=== PATIENT | male | born 1950 | race Caucasian/White ===

== ENCOUNTER → 2018-01-16 08:19 | Outpatient (CLI) | payer MEDICARE, OTHER, SELFPAY ==
--- NOTE | 2018-01-16 08:21 | US_ITS ---
US gallbladder HISTORY: Cholelithiasis seen on recent abdomen CT ITS.REASON: DIZZINESS, VOMITING ORDERING PHYSICIAN: Clifton Lujan MD PATIENT AGE: 67 years COMPARISON: 12/28/2017 FINDINGS: PANCREAS: Unremarkable. No obvious mass or abnormal fluid collection. No ductal dilatation LIVER: No focal liver lesions demonstrated. Homogeneous echogenicity. No intrahepatic biliary ductal dilatation evident RIGHT KIDNEY: No hydronephrosis. There are 2 stones in the right kidney one in the upper pole at 9 mm and one in the lower pole 7 mm. There is mild cortical scarring and there is a 2 cm cyst along the lower pole anteriorly. GALLBLADDER: There are small stones present within the gallbladder. No gallbladder wall thickening, pericholecystic fluid, or biliary dilatation evident., Bile duct is normal at 3 mm. IMPRESSION: 1. Cholelithiasis. 2. Right nephrolithiasis, small right renal cyst, and mild cortical scarring of the right kidney
== END ==
PROVIDERS: PCP Family Medicine; Visit Provider Surgery
DX: K80.20 Calculus of gallbladder without cholecystitis without obstruction (principal)
CPT/HCPCS: 76705

== ENCOUNTER → 2018-01-17 06:49 | Outpatient (CLI) | payer MEDICARE, OTHER, SELFPAY ==
--- NOTE | 2018-01-17 06:51 | CA_ITS ---
PROCEDURE: 2-D M-mode and color Doppler study INDICATIONS FOR THE TEST: Chest pain COPD Heart Murmur Tobacco Smoking Palpitations Fatigue+ Syncopenear Edema+ Hypertension+Diabetes Mellitus Rheumatic Fever SOB JEROME+Obesity Hyperlipidemia Family History HD Additional History dizziness PATIENT INFORMATION HEIGHT:70 WEIGHT: 251 GENDER: Male B/P: 178/75 2-D/M-MODE INTERPRETATION: 2-D MEASUREMENTS OBSERVED VALUES IN CMS Right Ventricular Dimension (RVDd) 3.1 Interventricular Septum (Thickness)(IVsd) 1.1 Left Ventricular Internal Dimensions(LVIDd) 5.2 Left Ventricular Posterior Wall (Thickness)(LVPWd) 1.2 Aortic Root 3.3 Aortic Cusp Separation 2.4 Left Atrial Dimensions (LAD) 4.8 2D 1. Left atrium is mildly enlarged, left ventricle is normal size, there is mild concentric left ventricular hypertrophy, visually estimated ejection fraction 55% with no obvious regional wall motion abnormality. 2. The right atrium and right ventricle are mildly enlarged with normal contractility. 3. The aortic valve is minimally thickened and fibrosed. 4. The mitral and tricuspid valve leaflets are minimally thickened. 5. The pulmonic valve is poorly visualized. 6. No significant pericardial effusion noted. DOPPLER INTERROGATION: Doppler interrogation of the aortic, mitral and tricuspid valve reveals presence of mild mitral and tricuspid regurgitation, grade 2 diastolic dysfunction seen with tissue Doppler evidence of raised left atrial pressure. Tricuspid and jet velocity insufficient for calculation of the right ventricular systolic pressure. CONCLUSION: 1. Mildly enlarged left atrium, normal left ventricular size, mild concentric left ventricular hypertrophy, visually estimated ejection fraction 55% with no obvious regional wall motion abnormality. Grade 2 diastolic dysfunction seen with tissue Doppler evidence of raised left atrial pressure. 2. Mild mitral and tricuspid regurgitation 3. No significant pericardial effusion noted.
--- NOTE | 2018-01-17 07:24 | HMH.ITSHM ---
TRAMADOL METOPROLOL LISINOPRIL CELECOXIB AMLODIPINE ALLOPURINOL
--- NOTE | 2018-01-17 08:21 | NM_ITS ---
History and Indications: Hypertension, hyperlipidemia, shortness of breath, syncope and fatigue Procedure: She received a 0.4 mg of Lexiscan, resting heart rate was 45 bpm, resting blood pressure 180/87, with Lexiscan maximum heart rate achieved was 70 bpm which is less than 85% of the maximum predicted heart rate and a blood pressure was 162/85. With Lexiscan patient complained of shortness of breath. Electrocardiogram: Resting electrocardiogram showed sinus bradycardia, with Lexiscan there is less than 1.[address] segment depression noted from the baseline EKG. The EKG portion of the Lexiscan is nondiagnostic. Cardiac stress and resting SPECT images: Exercise stress and rest SPECT images were obtained using technetium 99 Myoview 31.6 mCi at stress and 10.3 mCi at rest, gated SPECT further analysis of segmental wall motion and calculation of the ejection fraction also done. Cardiac stress and rest SPECT images show mild fixed defect in the apex with normal contractility in the gated SPECT is likely secondary to apical thinning, no reversible ischemia seen. Computer derived ejection fraction is 60% with no obvious regional wall motion abnormality, right ventricle is normal size and contractility. Conclusion: 1. The EKG portion of the Lexiscan Myoview is nondiagnostic. 2. No obvious scintigraphic evidence of reversible ischemia seen, computer derived ejection fraction 60% with no obvious regional wall motion abnormality, right ventricle is normal size and contractility. 3. Normal Lexiscan Myoview study.
--- NOTE | 2018-01-17 10:20 | HMH.ITSHM ---
tramadol metoprolol lisinopril celecoxib amlodipine allopurinol
== END ==
PROVIDERS: PCP Family Medicine; Visit Provider Internal Medicine
DX: I10 Essential (primary) hypertension (principal); R00.1 Bradycardia, unspecified; R42 Dizziness and giddiness; R53.83 Other fatigue; R06.09 Other forms of dyspnea
CPT/HCPCS: 78452; 93017; 93306; A9502; J2785

== ENCOUNTER 2018-02-08 11:01 | Inpatient (IN) ==
--- NOTE | 2018-02-08 11:37 | Emergency Department Note ---
ED Disposition Clinical Impression: Laceration, Lightheadedness, MELINDA (acute kidney injury), Hyperkalemia, Leucocytosis, Chest pain Disposition: Admitted as Observation Condition on Discharge: Good Instructions: DI for Laceration Repair Additional Instructions: have sutures removed in 5 days Prescriptions: cephALEXin [Keflex 500mg Cap] 500 mg PO QID #28 cap Referrals: Ilana Tavarez MD [Primary Care Provider] - - Critical Care Critical Care Time: No Attestation: On 02/08/18, the high probability of a clinically significant, sudden or life threatening deterioration of the following system(s) required my full and direct attention, intervention and personal management. The time I documented below is in addition to time spent performing reported procedures but includes the following listed in this critical care notation. Medical Decision Making - Medical Records MR Comment: 108pm call out to janie pt on multiple new medicines, findings of melinda, cp, dehydration, luecocytosis, pt denies fevers chills, cough, urinary. will repeat K level. will dw janie chest pain, MELINDA. pt does not know if on lisinopril, but is on medicine list. multiple new meds. denies skin infection. 115 pm cristina [facility] Cardiology, states to admit patient here to clinical operations specialist MD, recheck labs in am, they will follow for chest pain. call out to clinical operations specialist . 122pm cristina Morales MD, new onset melinda with hyperkalemia dehydration versus lisinopril versus other, leucocytosis, chest pain. ua pending. accepts - Markos Inquiry Pt receiving controlled substance: No Vital Signs: 02/08/18 11:04 Temperature 97.8 F Temperature Source Oral Pulse Rate [Right Radial] 50 L Respiratory Rate 18 Blood Pressure [Right Arm] 138/67 Blood Pressure Mean [Right Arm] 90 Blood Pressure Source [Right Arm] Automatic Cuff Blood Pressure Position [Right Arm] Sitting 02 Sat by Pulse Oximetry 97 Oxygen Delivery Method Room Air - Lab Data Lab Results 02/08/18 12:20: WBC 21.5 H*, RBC 5.07, Hgb 15.6, Hct 47.0, MCV 92.7, MCH 30.8, MCHC 33.2, RDW 13.9, Plt Count 415, MPV 7.8, Neut % (Auto) 85.9 H, Lymph % (Auto ) 9.4 L, [place] % (Auto) 3.3, Eos % (Auto) 1.1, Baso % (Auto) 0.4, Neut # (Auto) 18.4 H, Lymph # (Auto) 2.0, [place] # (Auto) 0.7, Eos # (Auto) 0.2, Baso # (Auto) 0.1 02/08/18 12:20: Sodium 136, Potassium 5.6 H, Chloride 99, Carbon Dioxide 27, Anion Gap 15.6 H, BUN 37 H, Creatinine 1.82 H, Estimated Creat Clear 60, Estimated GFR 37 L, Est GFR ( Amer) 45 L, Glucose 120 H, Calcium 9.9, Total Bilirubin 1.1 H, AST 30, ALT 65, Alkaline Phosphatase 82, Troponin I < 0.02, Total Protein 7.7, Albumin 4.4, Globulin 3.3 H, Albumin/Globulin Ratio 1.3 Result diagrams: 02/08/18 12:20 02/08/18 12:20 Orders (Tests/Meds): ED MEDICATIONS Discontinued Medications Generic Name Dose Route Start Last Admin Trade Name Freq PRN Reason Stop Dose Admin Aspirin 325 mg 02/08/18 12:12 02/08/18 12:25 Aspirin 325mg Tablet PO 02/08/18 12:13 325 mg ONCE ONE Administration Sodium Chloride 1,000 mls @ 999 mls/hr 02/08/18 11:45 02/08/18 12:25 Sod Chlor 0.9% 1000ml Bag IV 02/08/18 12:45 999 mls/hr .Q1H1M TOSIN Administration Lidocaine HCl 15 ml 02/08/18 11:18 02/08/18 12:00 Lidocaine 1% 20ml Mdv SQ 02/08/18 11:19 15 ml ONCE ONE Administration Pantoprazole Sodium 40 mg 02/08/18 12:13 02/08/18 12:25 Protonix 40mg Vial IV 02/08/18 12:14 40 mg ONCE ONE Administration Sodium Chloride 8 ml 02/08/18 12:13 02/08/18 12:25 Saline Flush 10ml Syringe IV 02/08/18 12:14 8 ml ONCE ONE Administration ORDERS Category Date Time Status Complete Blood Count Auto Diff Stat Lab 02/08/18 12:20 Results Lactic Acid Stat Lab 02/08/18 13:14 Ordered Potassium Stat Lab 02/08/18 13:03 Ordered UA [Urinalysis and Microscopic] Stat Lab 02/08/18 13:07 Ordered Blood Culture Stat Micro 02/08/18 13:14 Ordered 1209 pt now complaining of burning chest pain. He now states he has had this burning chest pain on and off for the past several days in the last 5-10 minutes at a time, states he thinks it is associated with eating he states sometimes it comes on after eating and then sometimes it comes on when he does not eat his perspective. In the center of his chest no radiation and mild in severity. Wound/Laceration HPI - General Chief Complaint: Wound/Laceration Stated Complaint: Lac to Lip Time Seen by Provider: 02/08/18 11:18 Mode of Arrival: Family Vehicle Limitations: No Limitations Description of Symptoms (Recalled from ER Triage Doc. 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 - History of Present Illness HPI narrative: Since states he hit himself on the lip with the handle and has a laceration on his lower lip he states his tetanus shot is less than 10 years ago he denies any other complaints or problems complains of some minimal achy discomfort at the site of the laceration on his lip he states it did not go all the way through. No loss of consciousness no head trauma. Patient also states that he has been feeling lightheaded for the past several days it is worse with standing he states he has nausea and at times had one episode of vomiting he denies any chest discomfort or shortness of breath denies any abdominal pain he states he does have gallstones in the thinking it may be gallstone disease he also states he had recent stent placement about 2-3 weeks ago. - Related Data Home Medications Medication Instructions Recorded Confirmed Allopurinol [Allopurinol 300mg 300 mg PO DAILY 12/28/17 02/08/18 tablet] Amlodipine Besylate [Amlodipine 10 mg PO DAILY 12/28/17 02/08/18 10mg Tab] Celecoxib 200 mg PO DAILY 12/28/17 02/08/18 Metoprolol Succinate 100 mg PO DAILY 12/28/17 02/08/18 Tramadol HCl [Ultram] 50 mg PO DAILY 12/28/17 02/08/18 multivitamin,[id number] 1 tab PO ONCE 01/18/18 02/08/18 tablet vitamin B complex tablet 1 tab PO ONCE 01/18/18 02/08/18 Atorvastatin Calcium [Atorvastatin 40 mg PO DAILY 01/22/18 02/08/18 40mg Tab] Furosemide [Lasix 40mg tab] 40 mg PO DAILY 01/22/18 02/08/18 Lisinopril [Lisinopril 20mg Tab] 20 mg PO DAILY 01/22/18 02/08/18 Spironolactone [Aldactone 50mg Tab] 50 mg PO DAILY 01/22/18 02/08/18 Ticagrelor [Brilinta 90mg Tablet] 90 mg PO BID 01/22/18 02/08/18 aspirin 81 mg tablet,delayed 81 mg PO DAILY tab 01/30/18 02/08/18 release Previous Rx's Medication Instructions Recorded cephALEXin [Keflex 500mg Cap] 500 mg PO QID #28 cap 02/08/18 Allergies Allergy/AdvReac Type Severity Reaction Status Date / Time No Known Allergies Allergy Verified 02/08/18 11:13 [facility] History I have reviewed the patient's past medical history: Yes Medical History: Reports:: Gastroesophageal Reflux Disease(GERD), Hypertension Denies:: Cancer, Diabetes Mellitus Type 1, Diabetes Mellitus Type 2, Internal Pacemaker, MRSA, Seizures Comment: Vertigo Other Surgeries: Yes: Appendectomy, Cardiac Catheterization, Coronary Stent, Other. No: Pacemaker Amputation: No Fractures: No - Social History Smoking Status: Never smoker Tobacco Type: cigarettes Alcohol Intake: never Alcohol Intake Frequency:: holidays/special occasions only Substance Use Type: denies use Occupational Status: retired Housing: house Household Members: significant other - Psychiatric History Expresses thoughts of harming self/others: None Suicide Plan Description: No Plan Family Hx:: Hypertension ROS Obtained: Yes All systems reviewed & no additional complaints Physical Exam General Appearance: Nontoxic Head: Normocephalic, without obvious abnormality, atraumatic. Eyes: conjunctiva/corneas clear ENT: Mucous membranes dry Lower lip has a laceration in the outer skin surface of about 2 cm, perhaps goes about 1mm into vermillon border contusion noted of lip as well. wound was washed with 20ml syringe saline and no thru and thru noted. teeth intact Neck: No jugular venous distention. Cardiac: regular rate and rhythm Lungs: Clear to auscultation bilaterally Abdomen: Nontender, Nondistended, positive bowel sounds, no rebound : No CVA tenderness Extremities: no edema Musculoskeletal: No chest wall tenderness Skin: No rashes or lesions to exposed skin. Neurologic: Alert. No gross focal deficits Psychiatric: Normal affect - General General appearance: alert - Respiratory Respiratory exam: Present: normal lung sounds bilaterally. Absent: respiratory distress - Cardiovascular Cardiovascular exam: Present: regular rate, normal rhythm, other - Neurological Exam Neurological exam: Present: alert Procedures - Laceration Laceration 1 Site: lip Size (cm): 2 Description: irregular Depth: simple, single layer Local Anesthetic: lidocaine 1% Amount of anesthesia used (mL): 1.5 Pre-repair: irrigated extensively Skin layer closed with: nylon Size (cm): 6-0 Number of sutures: 3 Technique: simple, interrupted
[2018-02-08 12:34] LABS: Basophils # 0.1 K/mm3 (0-0.2); Basophils % 0.4 % (0.1-2.0); Eosinophils # 0.2 K/mm3 (0.0-0.4); Eosinophils % 1.1 % (0.1-12.0); Hemoglobin 15.6 g/dL (14.1-18.0); Lymphocytes % 9.4 K/mm3 (10-50); Mean Corpuscular HGB Conc 33.2 g/dL (31.8-35.4); Mean Corpuscular Hemoglobin 30.8 pg (27.0-31.2); Mean Corpuscular Volume 92.7 fl (80-94); Mean Platelet Volume 7.8 fl (7.4-10.4); Monocytes # 0.7 K/mm3 (0.1-1.0); Monocytes % 3.3 % (1.7-9.3); Neutrophils # 18.4 K/mm3 (1.8-7.8); Neutrophils % 85.9 % (37.0-80.0); Platelet Count 415 K/mm3 (142-424); Red Blood Count 5.07 M/mm3 (4.60-6.20); Red Cell Distribution Width 13.9 % (11.5-17.5)
[2018-02-08 12:47] LABS: Alanine Aminotransferase 65 U/L (12-78); Albumin Level 4.4 gm/dL (3.4-5.0); Albumin/Globulin Ratio 1.3 (1.1-1.8); Alkaline Phosphatase 82 U/L (46-116); Anion Gap 15.6 mEq/L (5-15); Aspartate Amino Transferase 30 U/L (15-37); Bilirubin,Total 1.1 mg/dL (0.2-1.0); Blood Urea Nitrogen 37 mg/dL (7-18); Calcium 9.9 mg/dL (8.5-10.1); Carbon Dioxide 27 mmol/L (21.0-32.0); Chloride 99 mmol/L (98-107); Globulin 3.3 gm/dl (1.3-3.2); Glucose 120 mg/dL (74-106); Potassium 5.6 mmoL/L (3.5-5.1); Sodium 136 mmol/L (136-145); Total Protein,Serum 7.7 gm/dL (6.4-8.2)
[2018-02-08 12:50] LABS: White Blood Count 21.5 K/mm3 (4.8-10.8)
[2018-02-08 13:17] LABS: Lymphocytes % 13 % (10-50); Monocytes % 2 % (2-9); Neutrophils % 85 % (42-76); Total Cells Counted 100
[2018-02-08 13:19] LABS: RBC Morphology Normal
[2018-02-08 13:26] LABS: Microscopic, Urine URINE MICROSCOPIC (MICROSCOPIC)
[2018-02-08 13:27] LABS: Appearance,Urine CLEAR (Clear); Bilirubin,Urine Negative (Negative); Blood, Urine Negative (Negative); Color,Urine YELLOW (Yellow); Glucose,Urine (UA) Negative (Negative); Ketones,Urine Negative (Negative); Leukocyte Esterase,Urine Negative (Negative); Protein,Urine Negative (Negative); Urobilinogen,Urine 0.2 EU/dl (0.2)
[2018-02-08 13:34] LABS: Bacteria,Urine Trace /lpf; Squamous Epithelial Cell,Urine Occasional #/hpf (0-5)
[2018-02-08 13:53] LABS: Potassium 5.5 mmoL/L (3.5-5.1)
--- NOTE | 2018-02-08 15:13 | Pharmacy Consult Notes ---
[facility] Pharmacy VTE Monitoring - Patient Demographics Admission date: 02/08/18 Report Date: 02/08/18 Time: 15:12 Allergies/Adverse Reactions: Patient Allergies No Known Allergies Allergy (Verified 02/08/18 11:13) Height: 1.78 m Weight: 106.141 kg Patient Problems: Current Active Problems Laceration (Acute) Lightheadedness (Acute) MELINDA (acute kidney injury) (Acute) Hyperkalemia (Acute) Leucocytosis (Acute) Chest pain (Acute) - VTE Risk Labs: VTE Related Lab Results Hgb 15.6 g/dL (14.1-18.0) 02/08/18 12:20 Hct 47.0 % (42.0-52.0) 02/08/18 12:20 Plt Count 415 K/mm3 (142-424) 02/08/18 12:20 BUN 37 mg/dL (7-18) H 02/08/18 12:20 Creatinine 1.82 mg/dL (0.70-1.30) H 02/08/18 12:20 Estimated Creat Clear 60 mL/min (0-300) 02/08/18 12:20 - Prophylaxis VTE Prophylaxis Ordered?: Yes Types of VTE Prophylaxis: TEDS Knee High Location of Applied Device: Bilateral Lower Extremeties
--- NOTE | 2018-02-08 17:16 | History & Physical Report ---
*Admission Date: 02/08/18 <SoniyaPatt 02/08/18 17:26> *Chief complaint: Laceration to lip, weak and dizzy <Patt Byrnes 02/08/18 17:26> *History of present illness: Mr. Ball neo 67yo male who just recently had a stent placed by Dr. Stokes a few weeks ago. He states ever since that time, he has not felt well. He apparently has gallstones and was going to have his GB removed, but required cardiac clearance first. He then had the stent placed and is now on blood thinner, so he can't have the GB removed for at least 6 months to 1 year. He has been having some nausea, weakness, dizziness, and near syncopal episodes over the past few weeks. He has also been SOA. He denies any CP but has had heartburn. 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 He ended up in the ER and required stitches. While in the ER he was found to have renal insufficiency, an elevated WBC, and hyperkalemia. He was admitted for further evaluation and treatment. <SoniyaPatt 02/08/18 17:26> [facility] History Medical History: Reports:: Coronary Artery Disease, Gall Bladder Disease, Gastroesophageal Reflux Disease(GERD), Hyperlipidemia, Hypertension, Kidney Stones Denies:: Cancer, Diabetes Mellitus Type 1, Diabetes Mellitus Type 2, Internal Pacemaker, MRSA, Seizures <Patt Byrnes 02/08/18 17:26> Other Surgeries: Yes: Appendectomy, Cardiac Catheterization, Coronary Stent, Other. No: Pacemaker <Patt Byrnes 02/08/18 17:26> Amputation: No <Patt Byrnes 02/08/18 17:26> Fractures: No <Patt Byrnes 02/08/18 17:26> Comment: Kidney stone removal <Patt Byrnes 02/08/18 17:26> - *Social History Educational Level: Completed College <Patt Byrnes 02/08/18 17:26> Smoking Status: Never smoker <Patt Byrnes 02/08/18 17:26> Tobacco Type: cigarettes <Patt Byrnes 02/08/18 17:26> Alcohol Intake: current <Patt Byrnse 02/08/18 17:26> Alcohol Intake Frequency:: other [facility] 02/[facility] 17:26> Substance Use Type: denies use <[facility] 02/08/18 17:26> Occupational Status: retired <[facility] 02/08/18 17:26> Housing: house <[facility] 02/08/18 17:26> Household Members: significant other <[facility] 02/08/[facility] 17:26> - Psychiatric History Expresses thoughts of harming self/others: None <[facility] 02/08/18 17: 26> Suicide Plan Description: No Plan <[facility] 02/08/18 17:26> *Family Hx:: Cancer, Diabetes, Hypertension, Stroke <[facility] 02/08/18 17:26> Review of Systems - Constitutional Reports fatigue, Reports lack of energy, Reports malaise, Reports weakness, Denies fever(s) <[facility] 02/08/18 17:26> - Eyes Denies blurry vision, Denies double vision [facility] 02/08/[facility] 17:26> - ENT Reports nasal congestion, Denies sore throat <[facility] 02/08/18 17:26> - *Cardiovascular Denies chest pain, Denies leg swelling <[facility] 02/08/18 17:26> - *Respiratory Reports shortness of breath, Reports shortness of breath with activity, Denies cough <[facility] 02/08/18 17:26> - *Gastrointestinal Reports loose stools, Reports nausea, Denies vomiting <[facility] 17:26> - *Genitourinary Denies difficulty urinating, Denies painful urination <[facility] 17:26> - *Musculoskeletal Denies joint pain, Denies muscle weakness <[facility] 02/08/18 17:26> - *Neurologic Reports headache(s), Reports dizziness, Reports weakness <[facility] 17:26> Meds Home Medications Medication Instructions Recorded Confirmed Type Allopurinol [Allopurinol 300mg 300 mg PO DAILY 12/28/17 02/08/18 History tablet] Amlodipine Besylate [Amlodipine 10 mg PO DAILY 12/28/17 02/08/18 History 10mg Tab] Celecoxib 200 mg PO DAILY 12/28/17 02/08/18 History Metoprolol Succinate 100 mg PO DAILY 12/28/17 02/08/18 History Tramadol HCl [Ultram] 50 mg PO DAILY 12/28/17 02/08/18 History multivitamin,[id number] 1 tab PO ONCE 01/18/18 02/08/18 History tablet vitamin B complex tablet 1 tab PO ONCE 01/18/18 02/08/18 History Atorvastatin Calcium [Atorvastatin 40 mg PO DAILY 01/22/18 02/08/18 History 40mg Tab] Furosemide [Lasix 40mg tab] 40 mg PO DAILY 01/22/18 02/08/18 History Lisinopril [Lisinopril 20mg Tab] 20 mg PO DAILY 01/22/18 02/08/18 History Spironolactone [Aldactone 50mg Tab] 50 mg PO DAILY 01/22/18 02/08/18 History Ticagrelor [Brilinta 90mg Tablet] 90 mg PO BID 01/22/18 02/08/18 History aspirin 81 mg tablet,delayed 81 mg PO DAILY tab 01/30/18 02/08/18 History release <Paresh Morales - 02/08/18 18:31> Allergies Allergy/AdvReac Type Severity Reaction Status Date / Time No Known Allergies Allergy Verified 02/08/18 11:13 <[place],Paresh - 02/08/18 18:31> Exam Vital signs and Labs for Last 24 Hours: Temp Pulse Resp BP Pulse Ox 97.8 F 50 L 18 125/68 97 02/08/18 14:36 02/08/18 16:00 02/08/18 14:36 02/08/18 14:36 02/08/18 14:36 Laboratory Results - last 24 hr 02/08/18 12:20: WBC 21.5 H*, RBC 5.07, Hgb 15.6, Hct 47.0, MCV 92.7, MCH 30.8, MCHC 33.2, RDW 13.9, Plt Count 415, MPV 7.8, Neut % (Auto) 85.9 H, Lymph % (Auto ) 9.4 L, [place] % (Auto) 3.3, Eos % (Auto) 1.1, Baso % (Auto) 0.4, Neut # (Auto) 18.4 H, Lymph # (Auto) 2.0, [place] # (Auto) 0.7, Eos # (Auto) 0.2, Baso # (Auto) 0.1, Total Counted 100, Neutrophils % (Manual) 85 H, Lymphocytes % (Manual) 13, Monocytes % (Manual) 2, Platelet Estimate Slight increase, RBC Morphology Normal 02/08/18 12:20: Sodium 136, Potassium 5.6 H, Chloride 99, Carbon Dioxide 27, Anion Gap 15.6 H, BUN 37 H, Creatinine 1.82 H, Estimated Creat Clear 60, Estimated GFR 37 L, Est GFR ( Amer) 45 L, Glucose 120 H, Calcium 9.9, Total Bilirubin 1.1 H, AST 30, ALT 65, Alkaline Phosphatase 82, Troponin I < 0.02, Total Protein 7.7, Albumin 4.4, Globulin 3.3 H, Albumin/Globulin Ratio 1.3 02/08/18 13:19: Potassium 5.5 H, Troponin I < 0.02 02/08/18 13:19: Lactic Acid 1.6 02/08/18 13:20: Urine Color Yellow, Urine Appearance Clear, Urine pH 6.0, Ur Specific [place] 1.010, Urine Protein Negative, Urine Glucose (UA) Negative, Urine Ketones Negative, Urine Blood Negative, Urine Nitrate Negative, Urine Bilirubin Negative, Urine Urobilinogen 0.2, Ur Leukocyte Esterase Negative, Urine RBC None, Urine WBC None, Ur Squamous Epith Cells Occasional, Urine Bacteria Trace 02/08/18 16:31: Troponin I < 0.02 <Paresh Morales - 02/08/18 18:31> Temp Pulse Resp BP Pulse Ox 97.8 F 50 L 18 125/68 97 02/08/18 14:36 02/08/18 16:00 02/08/18 14:36 02/08/18 14:36 02/08/18 14:36 Laboratory Results - last 24 hr 02/08/18 12:20: WBC 21.5 H*, RBC 5.07, Hgb 15.6, Hct 47.0, MCV 92.7, MCH 30.8, MCHC 33.2, RDW 13.9, Plt Count 415, MPV 7.8, Neut % (Auto) 85.9 H, Lymph % (Auto ) 9.4 L, [place] % (Auto) 3.3, Eos % (Auto) 1.1, Baso % (Auto) 0.4, Neut # (Auto) 18.4 H, Lymph # (Auto) 2.0, [place] # (Auto) 0.7, Eos # (Auto) 0.2, Baso # (Auto) 0.1, Total Counted 100, Neutrophils % (Manual) 85 H, Lymphocytes % (Manual) 13, Monocytes % (Manual) 2, Platelet Estimate Slight increase, RBC Morphology Normal 02/08/18 12:20: Sodium 136, Potassium 5.6 H, Chloride 99, Carbon Dioxide 27, Anion Gap 15.6 H, BUN 37 H, Creatinine 1.82 H, Estimated Creat Clear 60, Estimated GFR 37 L, Est GFR ( Amer) 45 L, Glucose 120 H, Calcium 9.9, Total Bilirubin 1.1 H, AST 30, ALT 65, Alkaline Phosphatase 82, Troponin I < 0.02, Total Protein 7.7, Albumin 4.4, Globulin 3.3 H, Albumin/Globulin Ratio 1.3 02/08/18 13:19: Potassium 5.5 H, Troponin I < 0.02 02/08/18 13:19: Lactic Acid 1.6 02/08/18 13:20: Urine Color Yellow, Urine Appearance Clear, Urine pH 6.0, Ur Specific [place] 1.010, Urine Protein Negative, Urine Glucose (UA) Negative, Urine Ketones Negative, Urine Blood Negative, Urine Nitrate Negative, Urine Bilirubin Negative, Urine Urobilinogen 0.2, Ur Leukocyte Esterase Negative, Urine RBC None, Urine WBC None, Ur Squamous Epith Cells Occasional, Urine Bacteria Trace 02/08/18 16:31: Troponin I < 0.02 <Patt Byrnes - 02/08/18 17:26> I & O for Last 24 hours: Intake & Output 02/06/18 02/07/18 02/08/18 02/09/18 11:59 11:59 11:59 11:59 Intake Total 1360 / 1360 Balance 1360 / 1360 Weight 245 lb 234 lb <Paresh Morales - 02/08/18 18:31> Intake & Output 02/06/18 02/07/18 02/08/18 02/09/18 11:59 11:59 11:59 11:59 Intake Total 1000 / 1000 Balance 1000 / 1000 Weight 245 lb 234 lb <[facility] 02/08/18 17:26> - Constitutional no acute distress <[facility] 02/08/18 17:26> - *Routine HEENT Exam Head: Present: normocephalic, atraumatic <[facility] 02/08/18 17:26> Eye: Present: EOMI, PERRL <[facility] 02/08/18 17:26> ENT: Present: mucous membranes moist <[facility] 02/08/18 17:26> - *Routine Neck Exam Present: supple, full ROM. Absent: carotid bruit <[facility] 02/08/18 17 :26> - *Routine Respiratory Exam Present: CTA bilaterally <[facility] 02/08/18 17:26> - *Routine Cardiovascular Exam Present: RRR <[facility] 02/08/18 17:26> - *Routine Abdominal Exam Present: soft, normoactive bowel sounds. Absent: tenderness <[facility] 02/08/18 17:26> - *Routine Extremities Exam Absent: edema <[facility] 02/08/18 17:26> - *Routine Skin Exam Present: intact <[facility] 02/08/18 17:26> Comments: sutured laceration on the right lower lip with edema <[facility] 02/08/18 17:26> - *Routine Neurological Exam Present: alert, oriented X3, CN II-XII intact <[facility] 02/08/18 17:26> H&P: Result - Labs Labs: Short CBC 02/08/18 Range/Units 12:20 WBC 21.5 H* (4.8-10.8) K/mm3 Hgb 15.6 (14.1-18.0) g/dL Hct 47.0 (42.0-52.0) % Plt Count 415 (142-424) K/mm3 BMP 02/08/18 02/08/18 12:20 13:19 Sodium 136 Potassium 5.6 H 5.5 H Chloride 99 Carbon Dioxide 27 BUN 37 H Creatinine 1.82 H Glucose 120 H Calcium 9.9 Cardiac Enzymes 02/08/18 02/08/18 02/08/18 Range/Units 12:20 13:19 16:31 Troponin I < 0.02 < 0.02 < 0.02 (0.00-0.06) ng/ml Liver Function 02/08/18 Range/Units 12:20 Total Bilirubin 1.1 H (0.2-1.0) mg/dL AST 30 (15-37) U/L ALT 65 (12-78) U/L Alkaline Phosphatase 82 (46-116) U/L Albumin 4.4 (3.4-5.0) gm/dL Urine 02/08/18 Range/Units 13:20 Urine Color Yellow (Yellow) Urine Appearance Clear (Clear) Urine pH 6.0 (5.0-8.5) Ur Specific [place] 1.010 (1.005-1.030) Urine Protein Negative (Negative) Urine Glucose (UA) Negative (Negative) <[place],Paresh - 02/08/18 18:31> <SoniyaPatt - 02/08/18 17:26> - Impressions CXR - nothing acute <Patt Byrnes - 02/08/18 17:26> Assessment and Plan (1) Lightheadedness Current visit: Yes Status: Acute Category: Medical Code(s): R42 - Dizziness and giddiness (2) Leucocytosis Current visit: Yes Status: Acute Category: Medical Code(s): D72.829 - Elevated white blood cell count, unspecified (3) Laceration Current visit: Yes Status: Acute Category: Medical (4) Hyperkalemia Current visit: Yes Status: Acute Category: Medical Code(s): E87.5 - Hyperkalemia (5) Hyperlipidemia Current visit: Yes Status: Chronic Category: Medical Code(s): E78.5 - Hyperlipidemia, unspecified (6) History of coronary artery stent placement Current visit: Yes Status: Chronic Category: Surgical Code(s): Z95.5 - Presence of coronary angioplasty implant and graft (7) Coronary artery disease Current visit: Yes Status: Chronic Category: Medical Code(s): I25.10 - Atherosclerotic heart disease of [place] coronary artery without angina pectoris (8) Hypertension Current visit: No Status: Chronic Qualifiers: Hypertension type: essential hypertension Qualified Code(s): I10 - Essential (primary) hypertension Category: Medical Code(s): I10 - Essential (primary) hypertension (9) MELINDA (acute kidney injury) Current visit: Yes Status: Acute Category: Medical Code(s): N17.9 - Acute kidney failure, unspecified (10) Chest pain Current visit: Yes Status: Acute Category: Medical Code(s): R07.9 - Chest pain, unspecified <Paresh Morales - 02/08/18 18:31> (1) Lightheadedness Current visit: Yes Status: Acute Category: Medical Code(s): R42 - Dizziness and giddiness (2) Leucocytosis Current visit: Yes Status: Acute Category: Medical Code(s): D72.829 - Elevated white blood cell count, unspecified (3) Laceration Current visit: Yes Status: Acute Category: Medical (4) Hyperkalemia Current visit: Yes Status: Acute Category: Medical Code(s): E87.5 - Hyperkalemia (5) Hyperlipidemia Current visit: Yes Status: Chronic Category: Medical Code(s): E78.5 - Hyperlipidemia, unspecified (6) History of coronary artery stent placement Current visit: Yes Status: Chronic Category: Surgical Code(s): Z95.5 - Presence of coronary angioplasty implant and graft (7) Coronary artery disease Current visit: Yes Status: Chronic Category: Medical Code(s): I25.10 - Atherosclerotic heart disease of [place] coronary artery without angina pectoris (8) Hypertension Current visit: No Status: Chronic Qualifiers: Hypertension type: essential hypertension Qualified Code(s): I10 - Essential (primary) hypertension Category: Medical Code(s): I10 - Essential (primary) hypertension <Patt Byrnes - 02/08/18 17:13> - Assessment and plan all Dx Assessment and Plan for all problems:: Saw patient, agree with above note. <Paresh Morales - 02/08/18 18:31> Will hydrate patient overnight and recheck labs tomorrow. Will start him back on a few of his BP medications. Will hold the toprol d/t low HR as well as his diuretics. <Patt Byrnes - 02/08/18 17:26>
[2018-02-09 06:04] LABS: Basophils # 0.1 K/mm3 (0-0.2); Basophils % 0.4 % (0.1-2.0); Eosinophils # 0.2 K/mm3 (0.0-0.4); Eosinophils % 1.2 % (0.1-12.0); Hematocrit 41.5 % (42.0-52.0); Lymphocytes # 2.7 K/mm3 (0.7-4.5); Lymphocytes % 20.8 K/mm3 (10-50); Mean Corpuscular HGB Conc 32.3 g/dL (31.8-35.4); Mean Corpuscular Hemoglobin 30.3 pg (27.0-31.2); Mean Corpuscular Volume 93.8 fl (80-94); Mean Platelet Volume 7.9 fl (7.4-10.4); Monocytes % 7.4 % (1.7-9.3); Neutrophils # 9.1 K/mm3 (1.8-7.8); Neutrophils % 70.2 % (37.0-80.0); Platelet Count 302 K/mm3 (142-424); Red Blood Count 4.42 M/mm3 (4.60-6.20); Red Cell Distribution Width 14.1 % (11.5-17.5)
[2018-02-09 06:06] LABS: Anion Gap 12.6 mEq/L (5-15); Potassium 4.6 mmoL/L (3.5-5.1)
[2018-02-09 06:40] LABS: Hemoglobin 13.4 g/dL (14.1-18.0)
[2018-02-09 06:55] LABS: Creatine Kinase 81 U/L (39-308)
[2018-02-09 07:33] VITALS: BP 116/59
--- NOTE | 2018-02-09 07:59 | Consult Report ---
History of Present Illness Consult date: 02/09/18 Requesting physician: Paresh Morales Chief complaint: lip trauma, indigestion Additional Medical History:: 1. CAD A. Cardiac cath, 01/22/2018, ANGIOGRAPHIC RESULTS: 1. The left main artery has external calcification with an ostial 10% stenosis 2. The left anterior descending artery has proximal 10% stenoses followed by mid vessel calcified 20 and 30% stenoses 3. The circumflex artery is a large dominant vessel and has proximal 10% stenoses mid vessel 20 and 30% stenoses. The large first obtuse marginal artery has a proximal 90% stenosis 4. The right coronary artery is a nondominant vessel yet still moderate in size and has a proximal 50% stenosis mid vessel 50 and 70% stenoses with distal 70% and 80% stenosis. A distal marginal branch has a mid vessel 95% stenosis at a 1.75 mm vessel fairly distal in the marginal branch 5. The WAYNE ventriculogram reveals normal 65% 6. The left ventricular end-diastolic pressure 30 mmHg IMPRESSION: 1. Severe disease in the dominant circumflex artery large first obtuse marginal artery. 2. Successful stenting of the first obtuse marginal artery severe disease reduced to 0% with 1 drug-eluting stent 3. Persistent severe disease throughout the nondominant moderate sized right coronary artery 4. Normal ejection fraction 5. Moderately elevated LVEDP PLAN: 1. Brilinta and aspirin 2. Patient requires diuresis 3. LDL less than 55 4. Cardiac rehabilitation 5. Avoidance of tobacco products 6. Aggressive risk factor modification 2. HTN 3. HLD History of present illness: Mr. Ball neo 67yo male who just recently had a stent placed by Dr. Stokes a few weeks ago. He states ever since that time, he has not felt well. He apparently has gallstones and was going to have his GB removed, but required cardiac clearance first. He then had the stent placed and is now on blood thinner, so he can't have the GB removed for at least 6 months to 1 year. He has been having some nausea, weakness, dizziness, and near syncopal episodes over the past few weeks. He has also been SOA. He denies any CP but has had heartburn. 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 He ended up in the ER and required stitches. While in the ER he was found to have renal insufficiency, an elevated WBC, and hyperkalemia. He was admitted for further evaluation and treatment. The above per Patt Byrnes PA-C Reportedly he had complained of some chest pain, however, the patient states he has had some indigestion which he relates to his known gallbladder issues. Denies any exertional chest pain. EKG is sinus without acute ST segment changes. The troponins have returned normal X 4. Cardiology asked to see to advise on [facility]. [facility] History Medical History: Reports:: Coronary Artery Disease, Gall Bladder Disease, Gastroesophageal Reflux Disease(GERD), Hyperlipidemia, Hypertension, Kidney Stones Denies:: Cancer, Diabetes Mellitus Type 1, Diabetes Mellitus Type 2, Internal Pacemaker, MRSA, Seizures Other Surgeries: Yes: Appendectomy, Cardiac Catheterization, Coronary Stent, Other. No: Pacemaker Amputation: No Fractures: No - *Social History Educational Level: Completed College Smoking Status: Never smoker Tobacco Type: cigarettes Alcohol Intake: current Alcohol Intake Frequency:: other Substance Use Type: denies use Occupational Status: retired Housing: house Household Members: significant other - Psychiatric History Expresses thoughts of harming self/others: None Suicide Plan Description: No Plan *Family Hx:: Cancer, Diabetes, Hypertension, Stroke Meds Home Medications Medication Instructions Recorded Confirmed Type Allopurinol [Allopurinol 300mg 300 mg PO DAILY 12/28/17 02/08/18 History tablet] Amlodipine Besylate [Amlodipine 10 mg PO DAILY 12/28/17 02/08/18 History 10mg Tab] Celecoxib 200 mg PO DAILY 12/28/17 02/08/18 History Metoprolol Succinate 100 mg PO DAILY 12/28/17 02/08/18 History Tramadol HCl [Ultram] 100 mg PO DAILY 12/28/17 02/09/18 History Atorvastatin Calcium [Atorvastatin 40 mg PO DAILY 01/22/18 02/08/18 History 40mg Tab] Furosemide [Lasix 40mg tab] 40 mg PO DAILY 01/22/18 02/08/18 History Lisinopril [Lisinopril 20mg Tab] 20 mg PO DAILY 01/22/18 02/08/18 History Spironolactone [Aldactone 50mg Tab] 50 mg PO DAILY 01/22/18 02/08/18 History Ticagrelor [Brilinta 90mg Tablet] 90 mg PO BID 01/22/18 02/08/18 History aspirin 81 mg tablet,delayed 81 mg PO DAILY tab 01/30/18 02/08/18 History release Multivit,Calc,Mins/Iron/Folic 1 tab PO DAILY 02/09/18 02/09/18 History [Thera-M Tablet] Vitamin B Complex 1 tab PO DAILY 02/09/18 02/09/18 History cephALEXin [Keflex 500mg Cap] 500 mg PO QID 02/09/18 02/09/18 History Allergies Allergy/AdvReac Type Severity Reaction Status Date / Time No Known Allergies Allergy Verified 02/08/18 11:13 Review of Systems - *Cardiovascular Denies chest pain - *Respiratory Denies shortness of breath with activity - *Gastrointestinal Reports abdominal pain - *Musculoskeletal Denies joint pain - *Neurologic Reports headache(s), Reports dizziness, Reports weakness Exam Vital signs and Labs for Last 24 Hours: Temp Pulse Resp BP Pulse Ox 98.1 F 56 L 20 116/59 95 02/09/18 07:32 02/09/18 07:32 02/09/18 07:32 02/09/18 07:32 02/09/18 07:32 Laboratory Results - last 24 hr 02/08/18 12:20: WBC 21.5 H*, RBC 5.07, Hgb 15.6, Hct 47.0, MCV 92.7, MCH 30.8, MCHC 33.2, RDW 13.9, Plt Count 415, MPV 7.8, Neut % (Auto) 85.9 H, Lymph % (Auto ) 9.4 L, [place] % (Auto) 3.3, Eos % (Auto) 1.1, Baso % (Auto) 0.4, Neut # (Auto) 18.4 H, Lymph # (Auto) 2.0, [place] # (Auto) 0.7, Eos # (Auto) 0.2, Baso # (Auto) 0.1, Total Counted 100, Neutrophils % (Manual) 85 H, Lymphocytes % (Manual) 13, Monocytes % (Manual) 2, Platelet Estimate Slight increase, RBC Morphology Normal 02/08/18 12:20: Sodium 136, Potassium 5.6 H, Chloride 99, Carbon Dioxide 27, Anion Gap 15.6 H, BUN 37 H, Creatinine 1.82 H, Estimated Creat Clear 60, Estimated GFR 37 L, Est GFR ( Amer) 45 L, Glucose 120 H, Calcium 9.9, Total Bilirubin 1.1 H, AST 30, ALT 65, Alkaline Phosphatase 82, Troponin I < 0.02, Total Protein 7.7, Albumin 4.4, Globulin 3.3 H, Albumin/Globulin Ratio 1.3 02/08/18 13:19: Potassium 5.5 H, Troponin I < 0.02 02/08/18 13:19: Lactic Acid 1.6 02/08/18 13:20: Urine Color Yellow, Urine Appearance Clear, Urine pH 6.0, Ur Specific [place] 1.010, Urine Protein Negative, Urine Glucose (UA) Negative, Urine Ketones Negative, Urine Blood Negative, Urine Nitrate Negative, Urine Bilirubin Negative, Urine Urobilinogen 0.2, Ur Leukocyte Esterase Negative, Urine RBC None, Urine WBC None, Ur Squamous Epith Cells Occasional, Urine Bacteria Trace 02/08/18 16:31: Troponin I < 0.02 02/09/18 05:10: WBC 13.0 H D, RBC 4.42 L, Hgb 13.4 L D, Hct 41.5 L, MCV 93.8, MCH 30.3, MCHC 32.3, RDW 14.1, Plt Count 302 D, MPV 7.9, Neut % (Auto) 70.2, Lymph % (Auto) 20.8, [place] % (Auto) 7.4, Eos % (Auto) 1.2, Baso % (Auto) 0.4, Neut # (Auto) 9.1 H, Lymph # (Auto) 2.7, [place] # (Auto) 1.0, Eos # (Auto) 0.2, Baso # (Auto) 0.1 02/09/18 05:10: Sodium 139, Potassium 4.6, Chloride 105, Carbon Dioxide 26, Anion Gap 12.6, BUN 30 H, Creatinine 1.43 H D, Estimated Creat Clear 73, Estimated GFR 49 L, Est GFR ( Amer) 59 D, Glucose 101 02/09/18 05:10: Total Creatine Kinase 81, CK-MB (CK-2) 1.1, CK-MB (CK-2) Rel Index 1.4, Troponin I < 0.02 I & O for Last 24 hours: Intake & Output 02/06/18 02/07/18 02/08/18 06/01/18 11:59 11:59 11:59 11:59 Intake Total 1360 / 1360 Balance 1360 / 1360 Weight 245 lb 234 lb - *Routine Neck Exam Absent: JVD, carotid bruit - *Routine Respiratory Exam Present: CTA bilaterally - *Routine Cardiovascular Exam Present: RRR, murmur - *Routine Abdominal Exam Present: soft. Absent: tenderness - *Routine Extremities Exam Absent: edema - *Routine Neurological Exam Present: alert, oriented X3, moving all extremities Assessment and Plan (1) Lightheadedness Current visit: Yes Status: Acute Category: Medical Code(s): R42 - Dizziness and giddiness (2) Leucocytosis Current visit: Yes Status: Acute Category: Medical Code(s): D72.829 - Elevated white blood cell count, unspecified (3) Laceration Current visit: Yes Status: Acute Category: Medical (4) Hyperkalemia Current visit: Yes Status: Acute Category: Medical Code(s): E87.5 - Hyperkalemia (5) Hyperlipidemia Current visit: Yes Status: Chronic Category: Medical Code(s): E78.5 - Hyperlipidemia, unspecified (6) History of coronary artery stent placement Current visit: Yes Status: Chronic Category: Surgical Code(s): Z95.5 - Presence of coronary angioplasty implant and graft (7) Coronary artery disease Current visit: Yes Status: Chronic Category: Medical Code(s): I25.10 - Atherosclerotic heart disease of [place] coronary artery without angina pectoris (8) Hypertension Current visit: No Status: Chronic Qualifiers: Hypertension type: essential hypertension Qualified Code(s): I10 - Essential (primary) hypertension Category: Medical Code(s): I10 - Essential (primary) hypertension (9) MELINDA (acute kidney injury) Current visit: Yes Status: Acute Category: Medical Code(s): N17.9 - Acute kidney failure, unspecified (10) Chest pain Current visit: Yes Status: Acute Category: Medical Code(s): R07.9 - Chest pain, unspecified - Assessment and plan all Dx Assessment and Plan for all problems:: 1. No evidence of ACS. No further workup from cardiology standpoint. OK for discharge home from cardiology standpoint. 2. Discontinue metoprolol and diuretics for now. Consider restarting as needed at follow up. 3. Reduce lisinopril to 10 mg daily. 4. Continue ASA, Brilinta and atorvastatin. 5. Keep follow up this month.
--- NOTE | 2018-02-09 08:08 | Progress Note ---
<Patt Byrnes - Last Filed: 02/09/18 08:05> Internal Medicine - PN: Subj *Date: 02/09/18 *Time: 08:05 Interval history: Patient is feeling much better today. He denies any pain. He states his weakness dizziness is better. He slept well and would like some breakfast this morning. Cardiology has seen the patient and they feel he can be discharged home with some change in his medications. I did question him about any steroid use due to his elevated white blood cell count. He states he just finished a steroid pack due to an inflamed deer fly bite. WBC has improved today. Exam Vital signs and Labs for Last 24 Hours: Temp Pulse Resp BP Pulse Ox 98.1 F 56 L 20 116/59 95 02/09/18 07:32 02/09/18 07:32 02/09/18 07:32 02/09/18 07:32 02/09/18 07:32 Laboratory Results - last 24 hr 02/08/18 12:20: WBC 21.5 H*, RBC 5.07, Hgb 15.6, Hct 47.0, MCV 92.7, MCH 30.8, MCHC 33.2, RDW 13.9, Plt Count 415, MPV 7.8, Neut % (Auto) 85.9 H, Lymph % (Auto ) 9.4 L, [place] % (Auto) 3.3, Eos % (Auto) 1.1, Baso % (Auto) 0.4, Neut # (Auto) 18.4 H, Lymph # (Auto) 2.0, [place] # (Auto) 0.7, Eos # (Auto) 0.2, Baso # (Auto) 0.1, Total Counted 100, Neutrophils % (Manual) 85 H, Lymphocytes % (Manual) 13, Monocytes % (Manual) 2, Platelet Estimate Slight increase, RBC Morphology Normal 02/08/18 12:20: Sodium 136, Potassium 5.6 H, Chloride 99, Carbon Dioxide 27, Anion Gap 15.6 H, BUN 37 H, Creatinine 1.82 H, Estimated Creat Clear 60, Estimated GFR 37 L, Est GFR ( Amer) 45 L, Glucose 120 H, Calcium 9.9, Total Bilirubin 1.1 H, AST 30, ALT 65, Alkaline Phosphatase 82, Troponin I < 0.02, Total Protein 7.7, Albumin 4.4, Globulin 3.3 H, Albumin/Globulin Ratio 1.3 02/08/18 13:19: Potassium 5.5 H, Troponin I < 0.02 02/08/18 13:19: Lactic Acid 1.6 02/08/18 13:20: Urine Color Yellow, Urine Appearance Clear, Urine pH 6.0, Ur Specific [place] 1.010, Urine Protein Negative, Urine Glucose (UA) Negative, Urine Ketones Negative, Urine Blood Negative, Urine Nitrate Negative, Urine Bilirubin Negative, Urine Urobilinogen 0.2, Ur Leukocyte Esterase Negative, Urine RBC None, Urine WBC None, Ur Squamous Epith Cells Occasional, Urine Bacteria Trace 02/08/18 16:31: Troponin I < 0.02 02/09/18 05:10: WBC 13.0 H D, RBC 4.42 L, Hgb 13.4 L D, Hct 41.5 L, MCV 93.8, MCH 30.3, MCHC 32.3, RDW 14.1, Plt Count 302 D, MPV 7.9, Neut % (Auto) 70.2, Lymph % (Auto) 20.8, [place] % (Auto) 7.4, Eos % (Auto) 1.2, Baso % (Auto) 0.4, Neut # (Auto) 9.1 H, Lymph # (Auto) 2.7, [place] # (Auto) 1.0, Eos # (Auto) 0.2, Baso # (Auto) 0.1 02/09/18 05:10: Sodium 139, Potassium 4.6, Chloride 105, Carbon Dioxide 26, Anion Gap 12.6, BUN 30 H, Creatinine 1.43 H D, Estimated Creat Clear 73, Estimated GFR 49 L, Est GFR ( Amer) 59 D, Glucose 101 02/09/18 05:10: Total Creatine Kinase 81, CK-MB (CK-2) 1.1, CK-MB (CK-2) Rel Index 1.4, Troponin I < 0.02 I & O for Last 24 hours: Intake & Output 02/06/18 02/07/18 02/08/18 02/09/18 11:59 11:59 11:59 11:59 Intake Total 1360 / 1360 Balance 1360 / 1360 Weight 245 lb 234 lb - Constitutional no acute distress - *Routine Respiratory Exam Present: CTA bilaterally - *Routine Cardiovascular Exam Present: RRR - *Routine Abdominal Exam Present: soft, normoactive bowel sounds. Absent: tenderness - *Routine Extremities Exam Absent: edema Assessment and Plan (1) Lightheadedness Current visit: Yes Status: Acute Category: Medical Code(s): R42 - Dizziness and giddiness (2) Leucocytosis Current visit: Yes Status: Acute Category: Medical Code(s): D72.829 - Elevated white blood cell count, unspecified (3) Laceration Current visit: Yes Status: Acute Category: Medical (4) Hyperkalemia Current visit: Yes Status: Acute Category: Medical Code(s): E87.5 - Hyperkalemia (5) Hyperlipidemia Current visit: Yes Status: Chronic Category: Medical Code(s): E78.5 - Hyperlipidemia, unspecified (6) History of coronary artery stent placement Current visit: Yes Status: Chronic Category: Surgical Code(s): Z95.5 - Presence of coronary angioplasty implant and graft (7) Coronary artery disease Current visit: Yes Status: Chronic Category: Medical Code(s): I25.10 - Atherosclerotic heart disease of [place] coronary artery without angina pectoris (8) Hypertension Current visit: No Status: Chronic Category: Medical Code(s): I10 - Essential (primary) hypertension (9) MELINDA (acute kidney injury) Current visit: Yes Status: Acute Category: Medical Code(s): N17.9 - Acute kidney failure, unspecified (10) Chest pain Current visit: Yes Status: Acute Category: Medical Code(s): R07.9 - Chest pain, unspecified - Assessment and plan all Dx Assessment and Plan for all problems:: Patient stable to be discharged home today. His white count has improved as has his renal function. Cardiology recommends stopping his diuretics, decreasing his lisinopril, and stopping his metoprolol. He will need to follow- up with cardiology and the patient would like to switch care to [facility] with Dr. Morales. He will need to follow-up in our office as well. <Paresh Morales - Last Filed: 02/09/18 09:25> Internal Medicine - PN: Subj *Date: 02/09/18 *Time: 09:24 Exam Vital signs and Labs for Last 24 Hours: Temp Pulse Resp BP Pulse Ox 98.1 F 48 L 20 116/59 95 06/01/18 07:32 02/09/18 08:00 02/09/18 07:32 02/09/18 07:32 02/09/18 07:32 Laboratory Results - last 24 hr 02/08/18 12:20: WBC 21.5 H*, RBC 5.07, Hgb 15.6, Hct 47.0, MCV 92.7, MCH 30.8, MCHC 33.2, RDW 13.9, Plt Count 415, MPV 7.8, Neut % (Auto) 85.9 H, Lymph % (Auto ) 9.4 L, [place] % (Auto) 3.3, Eos % (Auto) 1.1, Baso % (Auto) 0.4, Neut # (Auto) 18.4 H, Lymph # (Auto) 2.0, [place] # (Auto) 0.7, Eos # (Auto) 0.2, Baso # (Auto) 0.1, Total Counted 100, Neutrophils % (Manual) 85 H, Lymphocytes % (Manual) 13, Monocytes % (Manual) 2, Platelet Estimate Slight increase, RBC Morphology Normal 02/08/18 12:20: Sodium 136, Potassium 5.6 H, Chloride 99, Carbon Dioxide 27, Anion Gap 15.6 H, BUN 37 H, Creatinine 1.82 H, Estimated Creat Clear 60, Estimated GFR 37 L, Est GFR ( Amer) 45 L, Glucose 120 H, Calcium 9.9, Total Bilirubin 1.1 H, AST 30, ALT 65, Alkaline Phosphatase 82, Troponin I < 0.02, Total Protein 7.7, Albumin 4.4, Globulin 3.3 H, Albumin/Globulin Ratio 1.3 02/08/18 13:19: Potassium 5.5 H, Troponin I < 0.02 02/08/18 13:19: Lactic Acid 1.6 02/08/18 13:20: Urine Color Yellow, Urine Appearance Clear, Urine pH 6.0, Ur Specific [place] 1.010, Urine Protein Negative, Urine Glucose (UA) Negative, Urine Ketones Negative, Urine Blood Negative, Urine Nitrate Negative, Urine Bilirubin Negative, Urine Urobilinogen 0.2, Ur Leukocyte Esterase Negative, Urine RBC None, Urine WBC None, Ur Squamous Epith Cells Occasional, Urine Bacteria Trace 02/08/18 16:31: Troponin I < 0.02 02/09/18 05:10: WBC 13.0 H D, RBC 4.42 L, Hgb 13.4 L D, Hct 41.5 L, MCV 93.8, MCH 30.3, MCHC 32.3, RDW 14.1, Plt Count 302 D, MPV 7.9, Neut % (Auto) 70.2, Lymph % (Auto) 20.8, [place] % (Auto) 7.4, Eos % (Auto) 1.2, Baso % (Auto) 0.4, Neut # (Auto) 9.1 H, Lymph # (Auto) 2.7, [place] # (Auto) 1.0, Eos # (Auto) 0.2, Baso # (Auto) 0.1 02/09/18 05:10: Sodium 139, Potassium 4.6, Chloride 105, Carbon Dioxide 26, Anion Gap 12.6, BUN 30 H, Creatinine 1.43 H D, Estimated Creat Clear 73, Estimated GFR 49 L, Est GFR ( Amer) 59 D, Glucose 101 02/09/18 05:10: Total Creatine Kinase 81, CK-MB (CK-2) 1.1, CK-MB (CK-2) Rel Index 1.4, Troponin I < 0.02 I & O for Last 24 hours: Intake & Output 02/06/18 02/07/18 02/08/18 02/09/18 11:59 11:59 11:59 11:59 Intake Total 1360 / 1360 Balance 1360 / 1360 Weight 245 lb 234 lb Assessment and Plan (1) Lightheadedness Current visit: Yes Status: Acute Category: Medical Code(s): R42 - Dizziness and giddiness (2) Leucocytosis Current visit: Yes Status: Acute Category: Medical Code(s): D72.829 - Elevated white blood cell count, unspecified (3) Laceration Current visit: Yes Status: Acute Category: Medical (4) Hyperkalemia Current visit: Yes Status: Acute Category: Medical Code(s): E87.5 - Hyperkalemia (5) Hyperlipidemia Current visit: Yes Status: Chronic Category: Medical Code(s): E78.5 - Hyperlipidemia, unspecified (6) History of coronary artery stent placement Current visit: Yes Status: Chronic Category: Surgical Code(s): Z95.5 - Presence of coronary angioplasty implant and graft (7) Coronary artery disease Current visit: Yes Status: Chronic Category: Medical Code(s): I25.10 - Atherosclerotic heart disease of [place] coronary artery without angina pectoris (8) Hypertension Current visit: No Status: Chronic Qualifiers: Hypertension type: essential hypertension Qualified Code(s): I10 - Essential (primary) hypertension Category: Medical Code(s): I10 - Essential (primary) hypertension (9) MELINDA (acute kidney injury) Current visit: Yes Status: Acute Category: Medical Code(s): N17.9 - Acute kidney failure, unspecified (10) Chest pain Current visit: Yes Status: Acute Category: Medical Code(s): R07.9 - Chest pain, unspecified - Assessment and plan all Dx Assessment and Plan for all problems:: Saw patient agree with above note, discharge home today, f/u in office in 4 days for suture removal.
--- NOTE | 2018-02-09 16:27 | Discharge Summary ---
General - General Admission date:: 02/08/18 Discharge date: 02/09/18 HPI HPI: Mr. Ball neo 67yo male who just recently had a stent placed by Dr. Stokes a few weeks ago. He states ever since that time, he has not felt well. He apparently has gallstones and was going to have his GB removed, but required cardiac clearance first. He then had the stent placed and is now on blood thinner, so he can't have the GB removed for at least 6 months to 1 year. He has been having some nausea, weakness, dizziness, and near syncopal episodes over the past few weeks. He has also been SOA. He denies any CP but has had heartburn. 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 He ended up in the ER and required stitches. While in the ER he was found to have renal insufficiency, an elevated WBC, and hyperkalemia. He was admitted for further evaluation and treatment. Hospital Course Hospital Course: His CXR was normal. The patient was hydrated overnight and labs were rechecked. He was continued on his brilinta and a few of his BP medications. His toprol was held d/t low HR as were his diuretics d/t renal insufficiency. By 02/09/18, the patient was feeling much better. He denied any pain. His weakness/ dizziness were better. Cardiology saw the patient and they felt he could be discharged home with some change in his medications. His elevated WBC was of question as no infection was found, however the patient did state he had be on a steroid pack due to an inflamed deer fly bite. His WBC did decrease to 13 and his renal function improved. He was stable to be discharged home and will need to stop his diuretics, decrease his lisinopril to 10mg daily, and stop his metoprolol. He will need to follow-up with cardiology as well as Dr. Morales. Objective Vital signs: Temp Pulse Resp BP Pulse Ox 98.1 F 48 L 20 116/59 95 02/09/18 07:32 02/09/18 08:00 02/09/18 07:32 02/09/18 07:32 02/09/18 07:32 Narrative: - Constitutional no acute distress - *Routine HEENT Exam Head: Present: normocephalic, atraumatic Eye: Present: EOMI, PERRL ENT: Present: mucous membranes moist - *Routine Neck Exam Present: supple, full ROM. Absent: carotid bruit - *Routine Respiratory Exam Present: CTA bilaterally - *Routine Cardiovascular Exam Present: RRR - *Routine Abdominal Exam Present: soft, normoactive bowel sounds. Absent: tenderness - *Routine Extremities Exam Absent: edema - *Routine Skin Exam Present: intact Comments: sutured laceration on the right lower lip with edema - *Routine Neurological Exam Present: alert, oriented X3, CN II-XII intact Results Labs on day of discharge: Labs from last 24 hours 02/09/18 02/09/18 02/09/18 05:10 05:10 05:10 WBC 13.0 H D RBC 4.42 L Hgb 13.4 L D Hct 41.5 L MCV 93.8 MCH 30.3 MCHC 32.3 RDW 14.1 Plt Count 302 D MPV 7.9 Neut % (Auto) 70.2 Lymph % (Auto) 20.8 [place] % (Auto) 7.4 Eos % (Auto) 1.2 Baso % (Auto) 0.4 Neut # (Auto) 9.1 H Lymph # (Auto) 2.7 [place] # (Auto) 1.0 Eos # (Auto) 0.2 Baso # (Auto) 0.1 Sodium 139 Potassium 4.6 Chloride 105 Carbon Dioxide 26 Anion Gap 12.6 BUN 30 H Creatinine 1.43 H D Estimated Creat Clear 73 Estimated GFR 49 L Est GFR ( Amer) 59 D Glucose 101 Total Creatine Kinase 81 CK-MB (CK-2) 1.1 CK-MB (CK-2) Rel Index 1.4 Troponin I < 0.02 02/08/18 16:31 WBC RBC Hgb Hct MCV MCH MCHC RDW Plt Count MPV Neut % (Auto) Lymph % (Auto) [place] % (Auto) Eos % (Auto) Baso % (Auto) Neut # (Auto) Lymph # (Auto) [place] # (Auto) Eos # (Auto) Baso # (Auto) Sodium Potassium Chloride Carbon Dioxide Anion Gap BUN Creatinine Estimated Creat Clear Estimated GFR Est GFR ( Amer) Glucose Total Creatine Kinase CK-MB (CK-2) CK-MB (CK-2) Rel Index Troponin I < 0.02 DS: Diagnosis - Discharge Diagnosis (1) Lightheadedness Status: Acute (2) Leucocytosis Status: Acute (3) Laceration Status: Acute (4) Hyperkalemia Status: Acute (5) Hyperlipidemia Status: Chronic (6) History of coronary artery stent placement Status: Chronic (7) Coronary artery disease Status: Chronic (8) Hypertension Status: Chronic (9) MELINDA (acute kidney injury) Status: Acute (10) Chest pain Status: Acute Discharge Plan - Patient Discharge Instructions ACTIVITY: Continue current activity DIET: continue same diet Patient Instructions: Acute Renal Failure, DI for Hyperkalemia, DI for Chest Pain - Follow up Plan Follow up with: Paresh Morales MD [Staff Physician] - 02/13/18 Disposition: Home, Self-Senior Care Medications: Home Medications Medication Instructions Recorded Confirmed Type Allopurinol [Allopurinol 300mg 300 mg PO DAILY 12/28/17 02/08/18 History tablet] Amlodipine Besylate [Amlodipine 10 mg PO DAILY 12/28/17 02/08/18 History 10mg Tab] Celecoxib 200 mg PO DAILY 12/28/17 02/08/18 History Tramadol HCl [Ultram] 100 mg PO DAILY 12/28/17 02/09/18 History Atorvastatin Calcium [Atorvastatin 40 mg PO DAILY 01/22/18 02/08/18 History 40mg Tab] Spironolactone [Aldactone 50mg Tab] 50 mg PO DAILY 01/22/18 02/08/18 History Ticagrelor [Brilinta 90mg Tablet] 90 mg PO BID 01/22/18 02/08/18 History aspirin 81 mg tablet,delayed 81 mg PO DAILY tab 01/30/18 02/08/18 History release Multivit,Calc,Mins/Iron/Folic 1 tab PO DAILY 02/09/18 02/09/18 History [Thera-M Tablet] Vitamin B Complex 1 tab PO DAILY 02/09/18 02/09/18 History cephALEXin [Keflex 500mg Cap] 500 mg PO QID 02/09/18 02/09/18 History Prescriptions/Medication Reconciliation: Continue aspirin 81 mg tablet,delayed release 81 mg PO DAILY tab Tramadol HCl [Ultram] 100 mg PO DAILY Celecoxib 200 mg PO DAILY Allopurinol [Allopurinol 300mg tablet] 300 mg PO DAILY Spironolactone [Aldactone 50mg Tab] 50 mg PO DAILY Atorvastatin Calcium [Atorvastatin 40mg Tab] 40 mg PO DAILY Multivit,Calc,Mins/Iron/Folic [Thera-M Tablet] 1 tab PO DAILY Amlodipine Besylate [Amlodipine 10mg Tab] 10 mg PO DAILY Ticagrelor [Brilinta 90mg Tablet] 90 mg PO BID Vitamin B Complex 1 tab PO DAILY cephALEXin [Keflex 500mg Cap] 500 mg PO QID Changed Lisinopril [Lisinopril 20mg Tab] 10 mg PO DAILY #0 Discontinued Metoprolol Succinate 100 mg PO DAILY Furosemide [Lasix 40mg tab] 40 mg PO DAILY
== END 2018-02-09 10:00 | disposition home or self-care (01) ==
LOC: ER 11:01 → 2ND 13:31
PROVIDERS: ADMIT Family Medicine; ATTEND Family Medicine

== ENCOUNTER → 2018-09-28 09:31 | Outpatient (CLI) | payer MEDICARE, OTHER, SELFPAY | PROVIDERS: PCP Family Medicine; Visit Provider Nurse Practitioner Family | DX: E78.2 Mixed hyperlipidemia (principal); G47.9 Sleep disorder, unspecified; I10 Essential (primary) hypertension; I25.10 Atherosclerotic heart disease of native coronary artery without angina pectoris; R00.1 Bradycardia, unspecified; R06.09 Other forms of dyspnea; R06.83 Snoring; R40.0 Somnolence; Z95.5 Presence of coronary angioplasty implant and graft; G47.33 Obstructive sleep apnea (adult) (pediatric) | CPT/HCPCS: G0399 ==

== ENCOUNTER → 2018-10-01 10:32 | Outpatient (POV) | payer MEDICARE, OTHER, SELFPAY | PROVIDERS: Visit Provider Specialist | DX: R20.2 Paresthesia of skin (principal); R20.0 Anesthesia of skin | CPT/HCPCS: 95886; 95908 ==

== ENCOUNTER → 2018-10-16 11:13 | Outpatient (CLI) | payer MEDICARE, OTHER, SELFPAY ==
--- NOTE | 2018-10-16 11:22 | NM_ITS ---
History and Indications: Coronary artery disease, hypertension, hyperlipidemia, fatigue, preop cardiovascular risk assessment Procedure: Patient received a 0.4 mg of intravenous Lexiscan, resting heart rate was 53 beats prominent resting blood pressure 169/76, with Lexiscan maximum heart rate achieved was 84 bpm which is less than 85% of the maximum predicted heart rate and a blood pressure was 144/74. With Lexiscan patient complained of shortness of breath. Electrocardiogram: Resting electrocardiogram showed sinus bradycardia, with Lexiscan there is less than 1.[address] segment depression noted from the baseline EKG. The EKG portion of the Lexiscan Myoview is nondiagnostic. Cardiac stress and resting SPECT images: Cardiac stress and resting SPECT images were obtained using technetium 99 Myoview 32.9 mCi stress and 10.6 mCi at rest. Gated SPECT further analysis of segmental wall motion and calculation of the ejection fraction also done. Cardiac stress and resting SPECT images show uniform myocardial activity without segmental perfusion abnormality, computer derived ejection fraction 56% with no regional wall motion abnormality, right ventricle is normal size and contractility. Conclusion: 1. The EKG portion of the exercise Myoview is nondiagnostic. 2. No obvious scintigraphic evidence of reversible ischemia seen, computer derived ejection fraction 56% with no regional wall motion abnormality, right ventricle is normal size and contractility. 3. Normal Lexiscan Myoview study.
--- NOTE | 2018-10-16 12:22 | HMH.ITSHM ---
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 []ALLOPURINOL AMLODIPINE ASA ATORVASTATIN CHOLECALCIFEROL CLOPIDOGREL LASIX LISINOPRIL SPIRONALACTONE
== END ==
PROVIDERS: PCP Family Medicine; Visit Provider Urology
DX: E78.5 Hyperlipidemia, unspecified (principal); I10 Essential (primary) hypertension; R00.1 Bradycardia, unspecified; R06.83 Snoring; R40.0 Somnolence; R53.83 Other fatigue; I25.119 Atherosclerotic heart disease of native coronary artery with unspecified angina pectoris; R94.31 Abnormal electrocardiogram [ECG] [EKG]
CPT/HCPCS: 78452; 93017; A9502; J2785

== ENCOUNTER → 2018-10-30 09:10 | Outpatient (CLI) | payer MEDICARE, OTHER, SELFPAY | PROVIDERS: PCP Family Medicine; Visit Provider Specialist | DX: G47.33 Obstructive sleep apnea (adult) (pediatric) (principal) | CPT/HCPCS: 94762 ==

== ENCOUNTER → 2019-03-25 09:43 | Outpatient (CLI) | payer MEDICARE, OTHER, SELFPAY ==
--- NOTE | 2019-03-25 10:03 | XR_ITS ---
XR foot wt bearing LT 3V HISTORY: ITS.REASON: pain ORDERING PHYSICIAN: Marlyn Baker MD PATIENT AGE: 69 years COMPARISON: None FINDINGS: No fracture or dislocation. No lytic or blastic change. There is normal mineralization.. The joint spaces are well-preserved. No significant degenerative/arthritic changes. No erosive changes evident. IMPRESSION: Negative, no acute finding
--- NOTE | 2019-03-25 10:03 | XR_ITS ---
XR ankle wt bearing RT min 3V HISTORY: ITS.REASON: pain ORDERING PHYSICIAN: Marlyn Baker MD PATIENT AGE: 69 years Comparison: None FINDINGS: No fracture or dislocation. No lytic or blastic change. There is normal mineralization.. The joint spaces are well-preserved. No significant degenerative/arthritic changes. No erosive changes evident. There are minimal hypertrophic changes at the tip of the medial malleolus IMPRESSION: Minimal degenerative change, no acute finding
--- NOTE | 2019-03-25 10:03 | XR_ITS ---
XR ankle wt bearing LT min 3V HISTORY: ITS.REASON: pain ORDERING PHYSICIAN: Marlyn Baker MD PATIENT AGE: 69 years Comparison: None FINDINGS: No fracture or dislocation. No lytic or blastic change. There is normal mineralization.. The joint spaces are well-preserved. No significant degenerative/arthritic changes. No erosive changes evident. There is a nonspecific small calcific density in the soft tissues anterior to the distal tibia measuring 3 mm. IMPRESSION: No acute finding
--- NOTE | 2019-03-25 10:03 | XR_ITS ---
XR foot wt bearing RT 3V HISTORY: ITS.REASON: pain ORDERING PHYSICIAN: Marlyn Baker MD PATIENT AGE: 69 years COMPARISON: None FINDINGS: Normal alignment. No fracture or dislocation. There are some mild hypertrophic changes with subarticular cystic areas involving the first metatarsophalangeal joint. There is a calcaneal spur at 14 mm. There is some small amount of calcification along the plantar surface of the soft tissues just superficial to the calcaneal spur which may be seen with plantar fasciitis IMPRESSION: Mild osteoarthritis first MTP joint Possible plantar fasciitis
[2019-03-25 10:12] LABS: Blood Urea Nitrogen 19 mg/dL (7-18); Creatinine,Serum 1.04 mg/dL (0.70-1.30); Estimated Glomerular Filt Rate 70 ml/min (>60); GFR (African American) 85 ML/MIN (>60)
== END ==
PROVIDERS: PCP Family Medicine; Referring Provider Surgery; Visit Provider Orthopaedic Surgery
DX: M79.673 Pain in unspecified foot (principal)
CPT/HCPCS: 36415; 73610; 73630; 82565; 84520; 87102; 87206; 87220

== ENCOUNTER → 2019-03-25 17:06 | Outpatient (CLI) | payer MEDICARE, OTHER, SELFPAY | PROVIDERS: Visit Provider Podiatrist | DX: M79.672 Pain in left foot (principal); M79.671 Pain in right foot; B35.1 Tinea unguium | CPT/HCPCS: 36415; 73610; 73630; 82565; 84520; 87102; 87206; 87220 ==

== ENCOUNTER → 2019-04-03 08:34 | Outpatient (CLI) | payer MEDICARE, OTHER, SELFPAY ==
--- NOTE | 2019-04-03 08:37 | CT_ITS ---
CT abdomen pelvis wo/w con CLINICAL INDICATION: ITS.REASON: liver hemangioma protocol ORDERING PHYSICIAN: Clifton Lujan MD PATIENT AGE: 69 years COMPARISON: 01/16/2018 and 12/28/2017. TECHNIQUE: Axial images obtained with sagittal and coronal reformats. All CT scans at the facility use one or more dose reduction, viz: automated exposure control, ma/kV adjustment per patient size (including targeted exams where dose is matched to indication, i.e. head), or iterative reconstruction technique. PROCEDURE: Oral Contrast: None IV Contrast: Images with and without intravenous contrast were obtained. . FINDINGS: Lower thorax: No acute finding Images without contrast show coronary artery calcified plaques. Also noted are the intrarenal collecting system stones bilaterally which are stable and the largest occurs on the right side at the mid calyx and measures 10 mm. There is no hydronephrosis or hydroureter or ureteral stone. Urinary bladder is normal. Renal nephrograms again show hypodense round foci which are stable and indeterminate although likely cysts. Liver is homogeneous without areas of abnormal attenuation. There is no focal liver lesion. There are clips in the gallbladder fossa. Adrenal glands, pancreas and liver are normal. There is incomplete fluid distention of the stomach for adequate evaluation. There is no bowel dilatation, free air or ascites. There are a few left colonic diverticula without inflammatory changes. The appendix is not visualized. There are some aortic calcified plaques without dilatation. Pelvis is unremarkable with some benign prostate gland calcifications. There is no acute osseous process. Impression: There is no liver lesion. The ultrasound from 01/16/2018 also did not describe a liver lesion. Stable bilateral nonobstructing nephrolithiasis. Stable numerous indeterminate renal lesions likely benign. Calcific atherosclerotic vascular disease also involving coronary arteries. Uncomplicated colonic diverticulosis. Cholecystectomy.
== END ==
PROVIDERS: PCP Family Medicine; Visit Provider Surgery
DX: D18.03 Hemangioma of intra-abdominal structures (principal)
CPT/HCPCS: 74178; Q9967

== ENCOUNTER → 2019-04-09 13:22 | Outpatient (CLI) | payer MEDICARE, OTHER, SELFPAY ==
--- NOTE | 2019-04-09 13:24 | US_ITS ---
US Arterial Lower Ext Rest History: ITS.REASON: skin changes, claudication, numbness in feet, hypertension ORDERING PHYSICIAN: Veronica Dawkins DPM PATIENT AGE: 69 years TECHNIQUE: Segmental pressures obtained of both right and left leg. These are compared to brachial blood pressure to yield index at each level sampled including summary HAILEY. The data sheets from the procedure are available in PACS FINDINGS Rest study only performed today No prior studies available for comparison. Blood pressures reported are in millimeters mercury. RIGHT LEG HAILEY = 1.0. RIGHT LEG TBI=0.7 Brachial BP: 154 Thigh BP: 163 Calf BP: 173 Ankle PT: 177 Ankle DP : 172 Digit =107 LEFT LEG HAILEY = 1.0 LEFT LEG TBI= 0.8 Brachial BPD: 155 Thigh BP: 192 Calf BP: 168 Ankle PT:153 Ankle DP: 167 Digit = 126 Pulses and waveforms: Normal IMPRESSION: The ABIs as reported above are within normal limits. Waveforms and pulses are also unremarkable.
== END ==
PROVIDERS: PCP Family Medicine; Visit Provider Podiatrist
DX: R09.89 Other specified symptoms and signs involving the circulatory and respiratory systems (principal)
CPT/HCPCS: 93923

== ENCOUNTER → 2019-04-18 07:31 | Outpatient (CLI) | payer MEDICARE, OTHER, SELFPAY ==
[2019-04-18 07:58] LABS: Basophils % 0.6 % (0.1-2.0); Eosinophils # 0.2 K/mm3 (0.0-0.4); Eosinophils % 3.1 % (0.1-12.0); Hematocrit 41.7 % (42.0-52.0); Hemoglobin 13.9 g/dL (14.1-18.0); Lymphocytes % 29.7 % (10-50); Mean Corpuscular HGB Conc 33.2 g/dL (31.8-35.4); Mean Corpuscular Hemoglobin 31.3 pg (27.0-31.2); Mean Corpuscular Volume 94.3 fl (80-94); Mean Platelet Volume 7.3 fl (7.4-10.4); Monocytes # 0.5 K/mm3 (0.1-1.0); Monocytes % 7.9 % (1.7-9.3); Neutrophils # 3.9 K/mm3 (1.8-7.8); Neutrophils % 58.7 % (37.0-80.0); Platelet Count 349 K/mm3 (142-424); Red Blood Count 4.42 M/mm3 (4.60-6.20); Red Cell Distribution Width 13.4 % (11.5-17.5); White Blood Count 6.7 K/mm3 (4.8-10.8)
[2019-04-18 08:55] LABS: Alanine Aminotransferase 71 U/L (12-78); Albumin Level 3.9 gm/dL (3.4-5.0); Albumin/Globulin Ratio 1.4 (1.1-1.8); Alkaline Phosphatase 69 U/L (46-116); Anion Gap 13.7 mEq/L (5-15); Aspartate Amino Transferase 23 U/L (15-37); Bilirubin,Total 0.5 mg/dL (0.2-1.0); Blood Urea Nitrogen 24 mg/dL (7-18); Calcium 9.2 mg/dL (8.5-10.1); Carbon Dioxide 27 mmol/L (21.0-32.0); Chloride 104 mmol/L (98-107); Creatinine,Serum 1.09 mg/dL (0.70-1.30); Estimated Glomerular Filt Rate 67 ml/min (>60); GFR (African American) 81 ML/MIN (>60); Globulin 2.7 gm/dl (1.3-3.2); Glucose 107 mg/dL (74-106); Potassium 4.7 mmoL/L (3.5-5.1); Sodium 140 mmol/L (136-145); Thyroid Stimulating Hormone 4.87 uIU/ml (0.358-3.740); Total Protein,Serum 6.6 gm/dL (6.4-8.2)
[2019-04-18 10:20] LABS: Erythrocyte Sedimentation Rate 10 mm/hr (0-20)
[2019-04-19 12:35] LABS: Folate 10.7 ng/mL (>3.0); Vitamin B12 1408 pg/mL (232-1245)
[2019-04-19 14:10] LABS: Albumin 3.7 g/dL (2.9-4.4); Alpha-1-Globulin 0.2 g/dL (0.0-0.4); Alpha-2-Globulin 0.9 g/dL (0.4-1.0); Gamma Globulin 0.6 g/dL (0.4-1.8); Protein, Total 6.3 g/dL (6.0-8.5)
== END ==
PROVIDERS: Visit Provider Podiatrist
DX: G62.9 Polyneuropathy, unspecified (principal); L60.3 Nail dystrophy
CPT/HCPCS: 36415; 80053; 82607; 82746; 84155; 84165; 84443; 85025; 85651; 86334

== ENCOUNTER 2019-05-08 07:00 | Outpatient (RCR) | payer MEDICARE, OTHER, SELFPAY ==
--- NOTE | 2019-04-24 10:56 | HMH.PTOPEV ---
PT Outpatient Evaluation Rehab PT Outpatient Evaluation Start: 04/24/19 09:09 Freq: Status: Active Protocol: Document 04/24/19 09:18 PDENELSON (Rec: 04/24/19 10:55 [email or web address] [id number]) Electronically Signed By Reji Roldan, PT 04/24/19 09:18 Outpatient Therapy Subjective History Subjective History Pt. is a 69 year old male who presents to outpatient PT with complaints of subacute and constant R posterior heel P! of insidious onset 1 month ago. Pt. reports first complaining of this P! after wearing dress shoes to a . Pt. reports his Patient Services Assistant says it 's in his achilles, but pt. believes it is related to his neuropathy. Recent diagnostic imaging positive for R ft./ankle mild OA and a calcaneal spur at 14 mm. Pt. reports no symptom relief with his prescribed steroid pack/ CAM bt. walker/shoe insert. Pt . RTMD 07/08/19. Current medications include Amlodipine , Aspirin, Atorvastatin, Vitamin D/B, Losartan, Spironolactone, and Allopurinol. PMH includes HTN, Hypercholesterolemia, 1 cardiovascular stent, ab. hernia, Appendectomy, Cholecystectomy, and Nephrolithiasis. Chief Complaint Pain Symptom Type Ache,Sharp,Numbness,Tingling Symptoms Relieved By Rest/Positioning Symptoms Aggravated By Standing,Physical Activity, Walking Prior Functional Limitations None Current Functional Limitations Sleeping,Standing,Walking Symptom Description Constant but Variable Level of pain today (0-10) 6 Pain scale - at its best (0-10) 1 Pain scale - at its worst (0-10) 9 Ankle/Foot Eval Gait Observation General Gait Pattern Observation Antalgic Gait,Decrease Weight Bear (R),Decrease Stride Lngth (L) Assistive Device Ambulation Assistive Device None Palpation Tenderness right Ankle/Foot Palpation Findings Tenderness Ankle/Foot Palpation Overall Comment grade 2 +TTP R achilles tendon
== END 2019-06-04 08:23 | disposition home or self-care (01) ==
LOC: PT.CARL 07:00
PROVIDERS: PCP Family Medicine; Visit Provider Podiatrist
DX: M76.61 Achilles tendinitis, right leg (principal)
CPT/HCPCS: 97014; 97033; 97035; 97110; 97140; 97163; G0283

== ENCOUNTER → 2019-05-20 15:42 | Outpatient (CLI) | payer MEDICARE, OTHER, SELFPAY ==
[2019-05-20 16:54] LABS: T4 (Thyroxine) 8.8 ug/dl (4.7-13.3); Thyroid Stimulating Hormone 1.71 uIU/ml (0.358-3.740)
[2019-05-23 07:10] LABS: Triiodothyronine (T3) Total 109 ng/dL (71-180)
== END ==
PROVIDERS: Visit Provider Specialist
DX: G62.9 Polyneuropathy, unspecified (principal); R73.09 Other abnormal glucose; E78.5 Hyperlipidemia, unspecified
CPT/HCPCS: 36415; 84436; 84443; 84480

== ENCOUNTER → 2019-07-30 08:05 | Outpatient (CLI) | payer MEDICARE, OTHER, SELFPAY ==
[2019-07-30 09:20] LABS: Alanine Aminotransferase 59 U/L (12-78); Albumin Level 3.9 gm/dL (3.4-5.0); Alkaline Phosphatase 82 U/L (46-116); Anion Gap 11.9 mEq/L (5-15); Aspartate Amino Transferase 26 U/L (15-37); Bilirubin,Direct 0.1 mg/dL (0.0-0.2); Bilirubin,Indirect 0.4 mg/dL (0.0-0.9); Bilirubin,Total 0.5 mg/dL (0.2-1.0); Blood Urea Nitrogen 18 mg/dL (7-18); Calcium 9.1 mg/dL (8.5-10.1); Carbon Dioxide 28 mmol/L (21.0-32.0); Chloride 103 mmol/L (98-107); Chol/HDL Ratio 3.4 (1-3.5); Cholesterol 135 mg/dL (140-200); Creatinine,Serum 1.01 mg/dL (0.70-1.30); Estimated Glomerular Filt Rate 73 ml/min (>60); GFR (African American) 88 ML/MIN (>60); Glucose 105 mg/dL (74-106); HDL Cholesterol 40 mg/dL (27-67); LDL Cholesterol 65 mg/dL (0-130); Potassium 4.9 mmoL/L (3.5-5.1); Sodium 138 mmol/L (136-145); Total Protein,Serum 6.6 gm/dL (6.4-8.2); Triglycerides 152 mg/dL (30-200); VLDL Cholesterol 30 mg/dL (0-40)
== END ==
PROVIDERS: Visit Provider Nurse Practitioner Family
DX: E78.2 Mixed hyperlipidemia (principal); I10 Essential (primary) hypertension; R60.0 Localized edema
CPT/HCPCS: 36415; 80048; 80061; 80076

== ENCOUNTER → 2019-08-02 12:52 | Outpatient (CLI) | payer MEDICARE, OTHER, SELFPAY ==
--- NOTE | 2019-08-02 12:55 | XR_ITS ---
PROCEDURE: XR KNEE RT 4V CLINICAL INDICATION: Knee pain COMPARISON: No exams were available for comparison FINDINGS: No fracture or dislocation. No lytic or blastic change. There is normal mineralization. There are minimal osteoarthritic changes of the medial compartment and patellofemoral joint. There may be a small suprapatellar effusion Other findings:Generalized vascular calcification IMPRESSION: Minimal osteoarthritic change with possible small suprapatellar effusion Dictated by: Devan Chirinos MD 08/02/2019 17:44 Electronically signed by Devan Chirinos MD in [place] 08/02/2019 17:44
== END ==
PROVIDERS: PCP Family Medicine; Visit Provider Orthopaedic Surgery
DX: M25.561 Pain in right knee (principal)
CPT/HCPCS: 73564

== ENCOUNTER → 2019-08-07 11:03 | Outpatient (CLI) | payer MEDICARE, OTHER, SELFPAY ==
--- NOTE | 2019-08-07 11:05 | MR_ITS ---
PROCEDURE: MR KNEE RT WO CON CLINICAL INDICATION: knee pain Right knee pain for 2 months, medial pain COMPARISON: XR KNEE RT 4V from 08/02/2019 TECHNIQUE: Routine multiplanar multi echo sequences are performed without gadolinium enhancement. FINDINGS: The cruciate ligaments are intact. The collateral ligaments, patellar tendon, and quadriceps tendon are intact. There is a complex tear involving the posterior horn of the medial meniscus with both horizontal and longitudinal component. This is nondisplaced. There diffuse increased T2 signal involving the medial aspect of the anterior horn of the lateral meniscus. Cannot exclude a tear at this region. There are mild osteoarthritic changes of the medial compartment and patellofemoral joint with small knee joint effusion. Patellar cartilage is preserved. There is a mild amount of subcutaneous edema about the knee. No fracture or dislocation. No bone bruise. IMPRESSION: 1. Complex tear posterior horn medial meniscus. 2. Heterogeneous increased T2 signal of the medial aspect of the anterior horn of the lateral meniscus. Cannot exclude tear at this area. 3. Mild osteoarthritis with small knee joint effusion Dictated by: Devan Chirinos MD 08/08/2019 08:10 Electronically signed by Devan Chirinos MD in [place] 08/08/2019 08:10
== END ==
PROVIDERS: PCP Family Medicine; Visit Provider Orthopaedic Surgery
DX: M25.561 Pain in right knee (principal)
CPT/HCPCS: 73721

== ENCOUNTER → 2019-09-30 14:34 | Outpatient (CLI) | payer MEDICARE, OTHER, SELFPAY ==
[2019-09-30 14:49] LABS: Basophils # 0.1 K/mm3 (0-0.2); Basophils % 0.5 % (0.1-2.0); Eosinophils # 0.3 K/mm3 (0.0-0.4); Eosinophils % 2.8 % (0.1-12.0); Hematocrit 41.4 % (42.0-52.0); Hemoglobin 13.6 g/dL (14.1-18.0); Lymphocytes # 2.5 K/mm3 (0.7-4.5); Mean Corpuscular HGB Conc 32.9 g/dL (31.8-35.4); Mean Corpuscular Hemoglobin 30.7 pg (27.0-31.2); Mean Corpuscular Volume 93.3 fl (80-94); Mean Platelet Volume 8.2 fl (7.4-10.4); Monocytes # 0.6 K/mm3 (0.1-1.0); Monocytes % 6.3 % (1.7-9.3); Neutrophils # 6.2 K/mm3 (1.8-7.8); Neutrophils % 64.4 % (37.0-80.0); Platelet Count 295 K/mm3 (142-424); Red Blood Count 4.43 M/mm3 (4.60-6.20); Red Cell Distribution Width 13.7 % (11.5-17.5); White Blood Count 9.6 K/mm3 (4.8-10.8)
[2019-09-30 15:00] LABS: INR 1.03 (0.9-1.1); Prothrombin Time 10.7 seconds (9.4-11.8)
[2019-09-30 16:22] LABS: Alanine Aminotransferase 49 U/L (12-78); Albumin Level 3.8 gm/dL (3.4-5.0); Albumin/Globulin Ratio 1.6 (1.1-1.8); Alkaline Phosphatase 66 U/L (46-116); Anion Gap 10.6 mEq/L (5-15); Aspartate Amino Transferase 20 U/L (15-37); Bilirubin,Total 0.4 mg/dL (0.2-1.0); Blood Urea Nitrogen 20 mg/dL (7-18); Calcium 9.3 mg/dL (8.5-10.1); Carbon Dioxide 29 mmol/L (21.0-32.0); Chloride 104 mmol/L (98-107); Creatinine,Serum 1.17 mg/dL (0.70-1.30); Estimated Glomerular Filt Rate 61 ml/min (>60); GFR (African American) 74 ML/MIN (>60); Globulin 2.4 gm/dl (1.3-3.2); Glucose 101 mg/dL (74-106); Potassium 4.6 mmoL/L (3.5-5.1); Sodium 139 mmol/L (136-145); Total Protein,Serum 6.2 gm/dL (6.4-8.2)
== END ==
PROVIDERS: Visit Provider Orthopaedic Surgery
DX: Z01.818 Encounter for other preprocedural examination (principal); M25.561 Pain in right knee; Z51.81 Encounter for therapeutic drug level monitoring
CPT/HCPCS: 36415; 80053; 85025; 85610

== ENCOUNTER → 2019-11-01 10:27 | Outpatient (CLI) | payer MEDICARE, OTHER, SELFPAY ==
[2019-11-01 11:24] LABS: Basophils # 0.1 K/mm3 (0-0.2); Basophils % 0.5 % (0.1-2.0); Eosinophils # 0.2 K/mm3 (0.0-0.4); Eosinophils % 1.8 % (0.1-12.0); Hemoglobin 14.3 g/dL (14.1-18.0); Lymphocytes # 2.2 K/mm3 (0.7-4.5); Lymphocytes % 22.7 % (10-50); Mean Corpuscular HGB Conc 33.2 g/dL (31.8-35.4); Mean Corpuscular Hemoglobin 30.8 pg (27.0-31.2); Mean Corpuscular Volume 92.6 fl (80-94); Mean Platelet Volume 7.8 fl (7.4-10.4); Monocytes # 0.5 K/mm3 (0.1-1.0); Monocytes % 5.5 % (1.7-9.3); Neutrophils # 6.7 K/mm3 (1.8-7.8); Neutrophils % 69.6 % (37.0-80.0); Platelet Count 385 K/mm3 (142-424); Red Blood Count 4.64 M/mm3 (4.60-6.20); Red Cell Distribution Width 13.5 % (11.5-17.5); White Blood Count 9.7 K/mm3 (4.8-10.8)
[2019-11-01 12:04] LABS: Blood Urea Nitrogen 20 mg/dl (9-20); Calcium 10.1 mg/dl (8.4-10.2); Carbon Dioxide 26 mmol/L (22.0-30.0); Chloride 101 mmol/L (98-107); Estimated Glomerular Filt Rate 83 ml/min (>60); GFR (African American) 101 ML/MIN (>60); Glucose 98 mg/dl (74-100); Sodium 136 mmol/L (136-145)
== END ==
PROVIDERS: Visit Provider Surgery
DX: T62.91XA Toxic effect of unspecified noxious substance eaten as food, accidental (unintentional), initial encounter (principal); K46.9 Unspecified abdominal hernia without obstruction or gangrene
CPT/HCPCS: 36415; 80048; 85025

== ENCOUNTER 2019-11-04 09:00 | Outpatient (RCR) | payer MEDICARE, OTHER, SELFPAY ==
--- NOTE | 2019-10-29 11:15 | HMH.PTOPEV ---
PT Outpatient Evaluation Rehab PT Outpatient Evaluation Start: 10/29/19 08:52 Freq: Status: Active Protocol: Document 10/29/19 09:30 EASTON (Rec: 10/29/19 11:14 [id number] [id number]) Electronically Signed By Reji Roldan, PT 10/29/19 09:30 Outpatient Therapy Subjective History Subjective History Pt. is a 69 year old male who presents to Outpatient PT clinic with complaints of constant and subacute anteromedial R knee P ! s/p R knee Arthroscopy on . Pt. reports currently WBAT on RLE, and states not using bilateral axillary crutches(DAIN) for a few days now. Pt. reports no increasing symptoms during ambulation w/o DAIN. Pt. RTMD 11/15/19. Pt. also reports having double hernia surgery next wk. on 11/06/19. Current medications include Allopurinol, Amlodipine, Aspirin, Atorvastatin, Vitamin D-3, Losartan, Meloxicam, Spironolactone, Vitamin B complex, and Trazodone. PMH includes HTN, Hypercholesterolemia, 1 cardiovascular stent, abdominal hernia, Appendectomy , Cholecystectomy, bilateral Cataract surgeries, and Nephrolithiasis. [ End ] Chief Complaint Pain Symptom Type Ache,Dull Symptoms Relieved By Ice Symptoms Aggravated By Sitting,Standing,Walking Prior Functional Limitations None Current Functional Limitations Housework,Standing,Sitting, Squatting,Recreation Activity, Walking,Stairs Symptom Description Constant but Variable Level of pain today (0-10) 0 Pain scale - at its best (0-10) 0 Pain scale - at its worst (0-10) 6 Hip/Knee Eval Gait Observation General Gait Pattern Observation Antalgic Gait,Decrease Weight Bear (R),Decrease Stride Lngth (L) Assistive Device Assistive Devices None / NA Palpation Tenderness right Knee Palpation Finding Tenderness Knee Palpation Overall Comment gra
== END 2019-11-18 14:30 | disposition home or self-care (01) ==
LOC: PT.CARL 09:00
PROVIDERS: PCP Family Medicine; Visit Provider Orthopaedic Surgery
DX: S83.231D Complex tear of medial meniscus, current injury, right knee, subsequent encounter (principal); M17.11 Unilateral primary osteoarthritis, right knee
CPT/HCPCS: 97014; 97033; 97110; 97163; G0283

== ENCOUNTER → 2020-01-15 07:03 | Outpatient (CLI) | payer MEDICARE, OTHER, SELFPAY ==
[2020-01-15 07:30] LABS: Microscopic, Urine URINE MICROSCOPIC (MICROSCOPIC)
--- NOTE | 2020-01-15 07:49 | ECG_ITS ---
APPROVED REPORT Exam: Resting ECG HR:56 bpm ECG Measurements Heart Rate 56 AXES ID 188 P 42 QRSd 82 QRS -5 QT 418 T 24 QTc 403 <Conclusion> Sinus bradycardia Low voltage QRS Late r wave progression Abnormal ECG Electronically signed by : Efrain Gómez, 01/15/2020 20:48:07
--- NOTE | 2020-01-15 07:55 | XR_ITS ---
PROCEDURE: XR CHEST 2V CLINICAL HISTORY: HTN Bradycardia, history of nicotine use COMPARISON: AGCHEST CT angio chest from 12/28/2017 CXR2V XR chest 2V from 12/28/2017 CXR1VP XR chest portable from 02/08/2018 FINDINGS: The cardiomediastinal silhouette and pulmonary vascularity are within normal limits. The lungs are clear without infiltrates, suspicious nodules, or pleural effusions. The there is mild calcification of the aortic arch. No acute bony anomalies. There are mild degenerative changes in the thoracic IMPRESSION: No acute findings. Dictated by: Devan Chirinos MD 01/15/2020 19:06 Electronically signed by Devan Chirinos MD in [place] 01/15/2020 19:06
[2020-01-15 07:59] LABS: Basophils # 0.1 K/mm3 (0-0.2); Basophils % 0.9 % (0.1-2.0); Eosinophils # 0.2 K/mm3 (0.0-0.4); Eosinophils % 2.3 % (0.1-12.0); Hematocrit 42.3 % (42.0-52.0); Hemoglobin 13.9 g/dL (14.1-18.0); Mean Corpuscular HGB Conc 32.8 g/dL (31.8-35.4); Mean Corpuscular Volume 94.7 fl (80-94); Mean Platelet Volume 8.1 fl (7.4-10.4); Monocytes # 0.5 K/mm3 (0.1-1.0); Neutrophils # 6.5 K/mm3 (1.8-7.8); Neutrophils % 69.8 % (37.0-80.0); Platelet Count 306 K/mm3 (142-424); Red Blood Count 4.47 M/mm3 (4.60-6.20); Red Cell Distribution Width 13.9 % (11.5-17.5); White Blood Count 9.3 K/mm3 (4.8-10.8)
[2020-01-15 08:34] LABS: Activated Partial Thrombo Time 25.3 seconds (23.6-34.0); INR 1.04 (0.9-1.1); Prothrombin Time 10.8 seconds (9.4-11.8)
[2020-01-15 09:03] LABS: Appearance,Urine CLEAR (Clear); Bilirubin,Urine Negative (Negative); Blood, Urine Negative (Negative); Color,Urine YELLOW (Yellow); Glucose,Urine (UA) Negative (Negative); Ketones,Urine Negative (Negative); Leukocyte Esterase,Urine Negative (Negative); Nitrate,Urine Negative (Negative); Protein,Urine Negative (Negative); Urobilinogen,Urine 0.2 EU/dl (0.2)
[2020-01-15 09:48] LABS: Bacteria,Urine Trace /lpf; Squamous Epithelial Cell,Urine Occasional #/hpf (0-5)
[2020-01-15 10:41] LABS: Alanine Aminotransferase 42 U/L (12-78); Alkaline Phosphatase 73 U/L (38-126); Aspartate Amino Transferase 30 U/L (17-59); Bilirubin,Indirect 0.6 mg/dL (0.0-0.9); Bilirubin,Total 0.6 mg/dl (0.2-1.3); Bilirubin,Unconjugated 0.9 mg/dL (0.0-1.1); Chol/HDL Ratio 2.5 (1-3.5); Cholesterol 108 mg/dl (140-200); HDL Cholesterol 44 mg/dl (40-60); Triglycerides 189 mg/dl (30-150); VLDL Cholesterol 38 mg/dL (0-40)
[2020-01-15 10:41] LABS: Anion Gap 12.7 mEq/L (5-15); Blood Urea Nitrogen 18 mg/dl (9-20); Calcium 10.1 mg/dl (8.4-10.2); Carbon Dioxide 27 mmol/L (22.0-30.0); Chloride 100 mmol/L (98-107); Estimated Glomerular Filt Rate 74 ml/min (>60); GFR (African American) 89 ML/MIN (>60); Glucose 101 mg/dl (74-100); Potassium 4.7 mmoL/L (3.5-5.1); Sodium 135 mmol/L (136-145)
[2020-01-15 10:52] LABS: Direct LDL Cholesterol 56.08 mg/dL (100-129)
[2020-01-15 11:09] LABS: Hemoglobin A1C 5.5 % (4.0-6.0)
[2020-01-15 11:33] LABS: Ferritin 133 ng/ml (17.9-464)
[2020-01-16 07:31] LABS: Creatinine, Urine 35.3 mg/dL (Not Estab.); Microalbumin, Urine <3.0 ug/mL (Not Estab.)
[2020-01-16 12:56] LABS: Vitamin D 25 Hydroxy 32.2 ng/mL (30.0-100.0)
[2020-01-19 17:06] LABS: Nicotine <1.0
[2020-01-19 17:07] LABS: Cotinine <1.0
== END ==
PROVIDERS: Nurse Practitioner Family; PCP Family Medicine; Visit Provider Orthopaedic Surgery
DX: Z01.818 Encounter for other preprocedural examination; I10 Essential (primary) hypertension; E78.2 Mixed hyperlipidemia; E83.10 Disorder of iron metabolism, unspecified; Z51.81 Encounter for therapeutic drug level monitoring
CPT/HCPCS: 36415; 71046; 80048; 80061; 80076; 80323; 81001; 82043; 82570; 82652; 82728; 83036; 85025; 85610; 85730; 87081; 93005

== ENCOUNTER 2020-03-11 08:00 | Outpatient (RCR) | payer MEDICARE, OTHER, SELFPAY | END 2020-03-18 10:12 | disposition home or self-care (01) | LOC: PT.CARL 08:00 | PROVIDERS: PCP Family Medicine; Visit Provider Orthopaedic Surgery | DX: M25.561 Pain in right knee (principal); Z96.651 Presence of right artificial knee joint | CPT/HCPCS: 97010; 97014; 97110; 97140; 97163; G0283 ==

== ENCOUNTER → 2020-04-13 12:47 | Outpatient (POV) | payer MEDICARE, OTHER, SELFPAY ==
[2020-04-13 13:16] VITALS: BP 140/68; PULSE 53; RESP 18; O2SAT 99; BMI 33.7
--- NOTE | 2020-04-20 08:42 | HMH.PMCON ---
Assessment and Plan (1) Neuropathy Status: Chronic Category: Medical Code(s): G62.9 - Polyneuropathy, unspecified - Assessment and plan all Dx Assessment and Plan for all problems:: We will start the patient on Elavil 25 mg at nighttime. I will follow-up with him in 3 weeks reassess his symptoms at that time he has been instructed to call the office if he has any issues prior to his next appointment. Dr. Weiner has reviewed this note and agrees with this plan of care. This note was dictated using voice recognition software and may contain errors or omissions HPI - Data of Consult Consult date: 04/20/20 Requesting Physician: Madalyn Rodrigues APRN Primary Care Provider: Paresh Morales MD - Consult Narrative Reason for consult: Bilateral foot pain History of present illness: Mr. Ball is a 70 year old male who presents today for consultation regards his bilateral foot neuropathy. Patient has had this for quite some time. He rates his pain a 6 out of 10. Any kind activity increases the pain while trazodone decreases it somewhat. He has constant burning and tingling in his bilateral feet. Patient has tried and failed gabapentin and Lyrica. Patient is interested in options in regards to his pain moving forward. Patient has seen podiatry. CC: Madalyn Rodrigues APRN [facility] History I have reviewed the patient's past medical history: Yes Medical History: Reports:: Coronary Artery Disease, Gall Bladder Disease, Gastroesophageal Reflux Disease(GERD), Hiatal Hernia, Hyperlipidemia, Hypertension, Kidney Stones Denies:: Cancer, Diabetes Mellitus Type 1, Diabetes Mellitus Type 2, Internal Pacemaker, MRSA, Seizures *Have you ever received a pneumonia vaccine?: Yes *Have you received a flu vaccine this season?: Yes Other Medical History: Reports: Arthritis, Blood Transfusion Reaction Laterality Cases: Right: Arthroscopy Knee Other Surgeries: Yes: Appendectomy, Cancer Surgery, Cardiac Catheterization, Cholecystectomy, Colonoscopy, Coronary Stent, EGD, Hernia Repair, Other. No: Pacemaker Amputation: No Fractures: Yes (finger, nose) - *Social History Smoking Status: Never smoker Tobacco Type: cigarettes #Yrs smoked (if former smoker): 40 Alcohol Intake: never Alcohol Intake Frequency:: holidays/special occasions only Substance Use Type: denies use *Occupational Status:: other Housing: house Household Members: other *Travel in the last 8 weeks: None Family Hx:: Unable to obtain Review of Systems - Review of Systems ROS General: no recent weight change, no fever, no sleep disturbances Respiratory: no cough, no shortness of air, no recurring pulmonary infections Cardiovascular/Peripheral Vascular: No chest pain, No palpitations, no edema, no shortness of breath. Gastrointestinal: no new onset incontinence, normal bowel movements reported Genitourinary: no new onset incontinence Musculoskeletal: Bilateral foot pain Psychiatric: normal mood/ affect Neurological: [denies new onset weakness in extremities], [denies new onset balance issues] Meds Home Medications Medication Instructions Recorded Confirmed Type Amlodipine Besylate [Amlodipine 10 mg PO DAILY 12/28/17 03/19/20 History 10mg Tab] allopurinoL [Allopurinol 300mg 300 mg PO DAILY 12/28/17 03/19/20 History tablet] cholecalciferol (vitamin D3) 25 1,000 unit PO DAILY cap 02/27/18 03/19/20 History mcg (1,000 unit) capsule spironolactone 50 mg tablet 50 mg PO DAILY #90 tab 05/16/18 03/19/20 Rx atorvastatin 40 mg tablet 40 mg PO DAILY #30 tab 06/13/19 03/19/20 Rx Losartan Potassium [Cozaar 100mg 100 mg PO DAILY 10/09/19 03/19/20 History Tablets] aspirin 81 mg tablet,delayed 81 mg PO BID tab 02/10/20 03/19/20 History release trazodone 100 mg tablet 150 mg PO QHS PRN #45 tab 03/19/20 03/19/20 Rx Amitriptyline HCl [Elavil 25mg 25 mg PO DAILY #30 tab 04/13/20 Rx tablet] Allergies Allergy/AdvReac Type Severity Reacti
== END ==
PROVIDERS: PCP Family Medicine; Visit Provider Clinical Nurse Specialist Family Health
DX: G62.9 Polyneuropathy, unspecified (principal)
CPT/HCPCS: 99202

== ENCOUNTER → 2020-05-04 10:41 | Outpatient (POV) | payer MEDICARE, OTHER, SELFPAY ==
[2020-05-04 10:50] VITALS: BP 142/74; PULSE 74; RESP 18; O2SAT 99; BMI 33.0
--- NOTE | 2020-05-04 11:04 | P.CONS_ITS ---
[facility] Pain Management SOAP Note Subjective:: Pleasant 70-year-old white male who presents today for consultation in regards to his bilateral neuropathy. Patient has numbness and tingling in his feet. He was put on Elavil and started in physical therapy. Patient states he does not think that the Elavil has been beneficial however he states that the physical therapy has been extremely beneficial. Patient rates his pain today a 1 out of 10. ROS General: no recent weight change, no fever, no sleep disturbances Respiratory: no cough, no shortness of air, no recurring pulmonary infections Cardiovascular/Peripheral Vascular: No chest pain, No palpitations, no edema, no shortness of breath. Gastrointestinal: no new onset incontinence, normal bowel movements reported Genitourinary: no new onset incontinence Musculoskeletal: Bilateral foot pain Psychiatric: normal mood/ affect Neurological: [denies new onset weakness in extremities], [denies new onset balance issues] Objective:: Physical Exam General: Alert and oriented x3, no acute distress, pleasant and cooperative, [on room air] Lungs: Resps E/U, Symmetrical chest expansion, Eyes: PERRL Musculoskeletal: deep tendon reflexes normal, strength in upper and lower extremities [5/5], normal gait noted Neurological: speech clear, plastic welder equal, no gross sensory deficits Assessment:: Peripheral neuropathy Plan:: I did discuss potential epidural steroid injections with the patient. Patient may want to do this in the future however he states he is doing extremely well currently with his physical therapy. He is going to call our office if he is interested in pursuing any other means of treatment. Dr. Weiner has reviewed this note and agrees with this plan of care. This note was dictated using voice recognition software and may contain errors or omissions [facility] History I have reviewed the patient's past medical history: Yes Medical History: Reports:: Coronary Artery Disease, Gall Bladder Disease, Gastroesophageal Reflux Disease(GERD), Hiatal Hernia, Hyperlipidemia, Hypertension, Kidney Stones Denies:: Cancer, Diabetes Mellitus Type 1, Diabetes Mellitus Type 2, Internal Pacemaker, MRSA, Seizures *Have you ever received a pneumonia vaccine?: Yes *Have you received a flu vaccine this season?: Yes Other Medical History: Reports: Arthritis, Blood Transfusion Reaction Laterality Cases: Right: Arthroscopy Knee Other Surgeries: Yes: Appendectomy, Cancer Surgery, Cardiac Catheterization, Cholecystectomy, Colonoscopy, Coronary Stent, EGD, Hernia Repair, Other. No: Pacemaker Amputation: No Fractures: Yes (finger, nose) - *Social History Smoking Status: Never smoker Tobacco Type: cigarettes #Yrs smoked (if former smoker): 40 Alcohol Intake: never Alcohol Intake Frequency:: holidays/special occasions only Substance Use Type: denies use *Occupational Status:: other Housing: house Household Members: other *Travel in the last 8 weeks: None Family Hx:: Unable to obtain
== END ==
PROVIDERS: PCP Family Medicine; Visit Provider Clinical Nurse Specialist Family Health
DX: G62.9 Polyneuropathy, unspecified (principal)
CPT/HCPCS: 99212

== ENCOUNTER 2020-06-03 08:00 | Outpatient (RCR) | payer MEDICARE, OTHER, SELFPAY ==
--- NOTE | 2020-04-27 11:08 | HMH.PTOPEV ---
PT Outpatient Evaluation Rehab PT Outpatient Evaluation Start: 04/27/20 10:41 Freq: Status: Active Protocol: Document 04/27/20 10:41 EASTON (Rec: 04/27/20 11:07 [email or web address] [id number]) Electronically Signed By Reji Roldan, PT 04/27/20 10:41 Outpatient Therapy Subjective History Subjective History Pt. is a 70 year old male who presents to outpatient PT clinic w/ complaints of chronic and constant BLE ft. numbness, and intermittent BLE ft. P! of insidious onset 4-5 years ago . Pt. reports symptoms have progressively worsened w/ time , but denies LBP! nor symptoms into neither extremity(except feet). Nerve conduction velocity(NCV) test and Pulse Volume Recording(PVR) negative per pt. report. Pt. denies having injections for current pathology nor recent diagnostic imaging of the LB. Pt. describes symptoms into the lateral 3 digits in the RLE ft., and lateral 2 digits and great toe of the LLE ft. Pt. RTMD on 05/04/20. Current medications include Amitriptyline, Spironolactone, Allopurinol, Amlodipine, Trazodone, Atorvastatin, Vitamin D-3, Losartan, Meloxicam, Pramipexole, Baby Aspirin, Oxycodone, Mobic, and Gabapentin. PMH includes Hypertension, Hypercholesterolemia, 1 cardiovascular stent, abdominal hernia, Appendectomy , Cholecystectomy, bilateral Cataract surgeries, double Herniorrhaphies, RLE knee arthroscopic surgery, and Nephrolithiasis. Chief Complaint Pain Symptom Type Sharp,Burning,Numbness, Tingling Symptoms Relieved By Activity Symptoms Aggravated By Sitting,Bending/Stooping, Physical Activity,Walking Prior Functional Limitations
== END 2020-06-03 10:00 | disposition home or self-care (01) ==
LOC: PT.CARL 08:00
PROVIDERS: PCP Family Medicine; Visit Provider Clinical Nurse Specialist Family Health
DX: G62.9 Polyneuropathy, unspecified (principal)
CPT/HCPCS: 97012; 97110; 97140; 97163

== ENCOUNTER → 2021-02-01 14:51 | Outpatient (CLI) | payer MEDICARE, OTHER, SELFPAY ==
--- NOTE | 2021-02-01 14:57 | XR_ITS ---
PROCEDURE: XR HAND LT MIN 3V CLINICAL INDICATION: TRIGGER RING FING OF LT HAND COMPARISON: CR [id number] XR hand LT min 3V from 10/20/2018 FINDINGS: No fracture or dislocation. No lytic or blastic change. There is normal mineralization. There are minimal osteoarthritic changes at the DIP joint of the 2nd and 3rd digit and the PIP joint of the 3rd digit. Small well-circumscribed lucency is present involving the proximal and radial aspect of the middle phalanx of the 3rd finger measuring 5 mm. Other findings:None. IMPRESSION: Minimal degenerative changes. Small benign-appearing cystic lesion middle phalanx 3rd finger Dictated by: Devan Chirinos MD 02/01/2021 15:08 Devan Chirinos MD in [place] 02/01/2021 15:08
== END ==
PROVIDERS: PCP Family Medicine; Visit Provider Family Medicine
DX: M65.342 Trigger finger, left ring finger (principal)
CPT/HCPCS: 73130

== ENCOUNTER → 2021-03-24 06:54 | Outpatient (CLI) | payer MEDICARE, OTHER, SELFPAY ==
[2021-03-24 13:58] LABS: Alanine Aminotransferase 51 U/L (12-78); Albumin Level 4.3 g/dl (3.5-5.0); Alkaline Phosphatase 64 U/L (38-126); Anion Gap 16.4 mEq/L (5-15); Aspartate Amino Transferase 33 U/L (17-59); Bilirubin,Total 0.7 mg/dl (0.2-1.3); Blood Urea Nitrogen 25 mg/dl (9-20); Calcium 9.1 mg/dl (8.4-10.2); Carbon Dioxide 25 mmol/L (22.0-30.0); Chloride 102 mmol/L (98-107); Chol/HDL Ratio 3.3 (1-3.5); Cholesterol 115 mg/dl (140-200); Estimated Glomerular Filt Rate 73 ml/min (>60); GFR (African American) 89 ML/MIN (>60); Globulin 2.1 g/dL (1.3-3.2); Glucose 99 mg/dl (74-100); HDL Cholesterol 35 mg/dl (40-60); Potassium 5.4 mmoL/L (3.5-5.1); Sodium 138 mmol/L (136-145); Total Protein,Serum 6.4 g/dl (6.3-8.2); Triglycerides 109 mg/dl (30-150); VLDL Cholesterol 22 mg/dL (0-40)
[2021-03-24 14:16] LABS: Direct LDL Cholesterol 57.15 mg/dL (100-129)
[2021-03-24 14:31] LABS: Prostate Specific Ag Screen 1.3 ng/ml (0.0-4.0); Thyroid Stimulating Hormone 3.81 uIU/mL (0.465-4.68)
[2021-03-24 14:39] LABS: Creatinine,Urine Random 45 mg/dL (Not Estab.); Microalbumin < 6.000 mg/L (0-16.7)
== END ==
PROVIDERS: Visit Provider Family Medicine
DX: I10 Essential (primary) hypertension (principal); E78.2 Mixed hyperlipidemia; Z12.5 Encounter for screening for malignant neoplasm of prostate
CPT/HCPCS: 36415; 80053; 80061; 82043; 82570; 84443; G0103

== ENCOUNTER → 2021-11-17 08:18 | Outpatient (CLI) | payer MEDICARE, SELFPAY | PROVIDERS: Visit Provider Surgery | DX: Z01.812 Encounter for preprocedural laboratory examination (principal); Z11.52 Encounter for screening for COVID-19; Z12.11 Encounter for screening for malignant neoplasm of colon | CPT/HCPCS: C9803; U0003; U0005 ==

== ENCOUNTER 2021-11-19 07:24 | Day surgery (SDC) | payer MEDICARE, SELFPAY ==
[2021-11-16 09:32] VITALS: BMI 35.9
[2021-11-19 07:36] VITALS: BP 147/69; PULSE 59; RESP 18; TEMP 36.6; O2SAT 98
--- NOTE | 2021-11-19 08:01 | P.PN_ITS ---
[facility] Anesthesia Checklist - Patient Identification Patient Identification: Arm Band - Structural Data Admitted From: Home Planned Operative Procedure/s: Colonoscopy Consent for Planned Operative Procedure(s) Verified: Yes - NPO Status Verified Time NPO: 03:45 (Prep) - Additional verifications Anesthesia Reactions: No Hx Blood Transfusions: No Blood Transfusion Reaction: Yes - Airway Assessment C-Spine Mobility Assessed: Yes TMJ Mobility Assessed: Yes Dentition: Good Dentition - Neurological Assessment Level of Consciousness: Awake Hx Seizures: No Numbness or tingling in extremities: No - Anesthesia Plan Anesthesia Risk discussed: Yes Anesthesia Plan: Verified ASA Class: II Anesthesia Type: MAC [facility] History I have reviewed the patient's past medical history: Yes Medical History: Reports:: Coronary Artery Disease, Gall Bladder Disease, Gastroesophageal Reflux Disease(GERD), Hiatal Hernia, Hyperlipidemia, Hypertension, Kidney Stones Denies:: Cancer, Diabetes Mellitus Type 1, Diabetes Mellitus Type 2, Internal Pacemaker, MRSA, Seizures *Have you ever received a pneumonia vaccine?: Yes *Have you received a flu vaccine this season?: Yes Other Medical History: Reports: Arthritis, Blood Transfusion Reaction Anesthesia experience/problems:: Difficult to intubate Laterality Cases: Right: Arthroscopy Knee Other Surgeries: Yes: Appendectomy, Cancer Surgery, Cardiac Catheterization, Cholecystectomy, Colonoscopy, Coronary Stent, EGD, Hernia Repair, Other. No: Pacemaker Amputation: No Fractures: Yes (finger, nose) - *Social History Last grade of school completed: High school graduate Smoking Status: Never smoker Tobacco Type: cigarettes #Yrs smoked (if former smoker): 40 Alcohol Intake: current Alcohol Intake Frequency:: holidays/special occasions only Substance Use Type: denies use *Occupational Status:: retired Housing: house Household Members: other *Travel in the last 8 weeks: None Family Hx:: No significant family history
[2021-11-19 08:12] VITALS: O2SAT 98
--- NOTE | 2021-11-19 09:14 | HMH.SCOPE ---
- Procedure: Date: 11/19/21 Patient Date of :: 1950 Procedure Performed:: Total colonoscopy to terminal ileum with numerous polypectomy Indications:: Patient is a 71-year-old male from [place] whom I have seen in the past for gallbladder and bilateral inguinal hernia repair. He is referred by Dr. Morales for a screening colonoscopy. He does state that he had a previous colonoscopy greater than 10 years ago. Performing Provider:: Clifton Lujan MD Referring Provider:: Paresh Morales MD Sedation:: MAC sedation Procedure:: Patient was taken to endoscopy procedure room. He was positioned in a lateral decubitus position. Adequate intravenous sedation was achieved with anesthesia titration of propofol. Variable stiffness Olympus colonoscope was inserted via the anus. It was advanced to the cecum. Ileocecal valve and appendiceal orifice were clearly identified. It was advanced a short distance into the terminal ileum which appeared grossly normal. Colonic preparation was good and visualization was good. Colonoscope was slowly withdrawn through the colon with careful surveillance. He had numerous polyps. In the cecum there was a small 3 mm polyp removed with cold snare. At the hepatic flexure he had 3 sessile 4 to 6 mm polyps removed with cold snare. In the proximal transverse colon there was a sessile approximately 6 mm polyp removed with hot snare. In the mid transverse colon there were a couple of polyps measuring 4 to 6 mm removed with cold snare. In the descending: There were a couple of diminutive polyps removed with cold biopsy forceps. In the proximal sigmoid colon there were a couple small polyps removed with cold snare. In the mid sigmoid he had a couple small polyps removed with cold snare. In the distal sigmoid there was a small polyp removed with cold snare. He did have some degree of rare pandiverticulosis. Retroflexion within the rectum revealed nonpathologic internal hemorrhoids. Colonoscope was withdrawn. Findings:: Numerous polyps as noted above, some complex. He had a total of 14 polyps removed. Some mild to moderate sigmoid diverticulosis Recommendations:: Repeat colonoscopy pending pathology, likely 2 to 3 years Complications:: None immediately apparent Estimated blood obtained (mL): 3
[2021-11-19 09:15] VITALS: BP 96/55; PULSE 63; RESP 16; TEMP 36.2; O2SAT 93
[2021-11-19 09:25] VITALS: BP 118/60; PULSE 57; RESP 16; TEMP 36.2; O2SAT 95
[2021-11-19 09:35] VITALS: BP 100/57; PULSE 51; RESP 16; TEMP 36.2; O2SAT 93
[2021-11-19 09:51] VITALS: BP 116/67; PULSE 56; RESP 18; TEMP 36.2; O2SAT 96
== END 2021-11-19 09:51 | disposition home or self-care (01) ==
LOC: OUTP 07:26
PROVIDERS: PCP Family Medicine; Visit Provider Surgery
PROC: 0DJD8ZZ Inspection of Lower Intestinal Tract, Via Natural or Artificial Opening Endoscopic (ICD-10-PCS; principal; 2021-11-19 08:30)
DX: Z12.11 Encounter for screening for malignant neoplasm of colon (principal); K63.5 Polyp of colon; K57.30 Diverticulosis of large intestine without perforation or abscess without bleeding; K64.9 Unspecified hemorrhoids; I25.10 Atherosclerotic heart disease of native coronary artery without angina pectoris; K21.9 Gastro-esophageal reflux disease without esophagitis; E78.5 Hyperlipidemia, unspecified; I10 Essential (primary) hypertension; M19.90 Unspecified osteoarthritis, unspecified site; Z79.82 Long term (current) use of aspirin; Z79.899 Other long term (current) drug therapy
CPT/HCPCS: 45380; 45385; 88305

== ENCOUNTER → 2022-02-18 06:43 | Outpatient (CLI) | payer MEDICARE, OTHER, SELFPAY ==
--- NOTE | 2022-02-18 06:49 | CT_ITS ---
FINAL REPORT CLINICAL HISTORY: RIGHT FLANK PAIN x1 month COMPARISON: 12/28/2017 FINDINGS: Axial CT images of the abdomen and pelvis were obtained without intravenous contrast. Coronal reformatted images were also obtained.This study was performed with techniques to keep radiation doses as low as reasonably achievable (ALARA). Individualized dose reduction techniques using automated exposure control or adjustment of mA and/or kV according to the patient's size were employed. Abdomen: The lung bases are clear. The patient is status post cholecystectomy. There are moderate vascular calcifications. The liver, spleen and pancreas have an unremarkable, unenhanced appearance. No inflammatory process is identified. There are multiple bilateral nonobstructing renal stones . A stone on the right measures up to 10 mm with a mean attenuation value of 937 Hounsfield units. There is no hydronephrosis. There are multiple low-attenuation bilateral renal masses which were present on the prior exam. An 18 mm mass in the posterior upper pole of the right kidney previously measured 16 mm. There is a small calcification with in it, posteriorly, and is favored to be a mild complex cyst. This cannot be completely characterized without contrast. Other masses have not significantly changed, visually. Pelvis: Images of the pelvis reveal no evidence of ureteral dilation or ureteral stone.No mass or abnormal fluid collection is identified. The appendix is not visualized. IMPRESSION: Multiple nonobstructing renal stones bilaterally. Mass in the posterior upper pole of the right kidney slightly larger than previously. This is favored to be a mild complex cyst. If indicated renal mass protocol CT or renal MRI may be beneficial. Multiple other bilateral renal masses. Reviewed, Interpreted and Dictated by Clifton Saravia III, MD Transcribed by Jinny Burkett Authenticated and [facility]
== END ==
PROVIDERS: PCP Family Medicine; Visit Provider Family Medicine
DX: R10.31 Right lower quadrant pain (principal)
CPT/HCPCS: 74176

== ENCOUNTER 2022-02-19 15:32 | Emergency (ER) | payer MEDICARE, OTHER, SELFPAY ==
[2022-02-19 16:05] VITALS: BP 145/78; PULSE 68; RESP 19; TEMP 37.1; O2SAT 97; BMI 34.2
[2022-02-19 16:41] VITALS: BP 145/78; PULSE 68; RESP 19; TEMP 37.1; O2SAT 97
--- NOTE | 2022-02-19 16:44 | HMH.EDUTC ---
[facility] [place] Clinical Impression: URI (upper respiratory infection) Qualifiers: URI type: unspecified URI Qualified Code(s): J06.9 - Acute upper respiratory infection, unspecified Disposition: Home, Self-Care Condition on Discharge: Good Instructions: Cough, DI for COVID-19 (Suspected or Confirmed ), Preventing the Spread of Coronavirus Discharge Instructions Additional Instructions: *Monitor Temp, Over the counter Motrin or Tylenol as directed/as needed Tylenol every 4 hours and Motrin every 6 hours (as long as your family doctor has told you that you can take it) for fever or pain. and straight to ER if unable to lower temp less than 101.0 after medication given *Warm salt water gargles may help to soothe the throat *Throat Lozenges *Warm fluids like tea with honey may help to soothe the throat *Sleep elevated *Humidifier/Vaporizer Follow up IMMEDIATELY for new or worsening symptoms or no Noticeable improvement over the next 48-72 hours. 911 for difficulty breathing or swallowing You were tested for today for COVID19 your test result should be back in the next 24-48 hours, your results will be available on the [facility] portal you can view your results there Prescriptions: methylPREDNISolone [Medrol 4mg tab] 4 mg PO DIRECTED #21 tab Transmission Status: Received by [id number] guaiFENesin [Mucinex 600mg tablet] 1 - 2 tab PO Q12H PRN #20 tab PRN Reason: Congestion [id number] Referrals: Paresh Morales MD [Primary Care Provider] - As needed Time of Disposition: 16:56 Medical Decision Making - Markos Inquiry Pt receiving controlled substance: No Markos was queried for this patient: No Vital Signs: 02/19/22 16:05 02/19/22 16:41 Temperature 98.7 F 98.7 F Temperature Source Oral Pulse Rate 68 Pulse Rate [Right Brachial] 68 Respiratory Rate 19 19 Blood Pressure 145/78 H Blood Pressure [Right Arm] 145/78 H Blood Pressure Mean [Right Arm] 100 Blood Pressure Source [Right Arm] Automatic Cuff Blood Pressure Position [Right Arm] Sitting 02 Sat by Pulse Oximetry 97 Oxygen Delivery Method Room Air Orders (Tests/Meds): ORDERS Category Date Time Status Covid-19 Nasal PCR ([facility]) Routine Lab 02/19/22 16:16 Received Medical Decision Narrative: Patient states that he has taken medrol in the past without complications or reactions [facility] [place] - General Stated complaint: sore throat,cough,QUEZADA,weak,galina Time Seen by Provider: 02/19/22 16:44 Mode of Arrival: Ambulatory Source of Information: Patient Limitations: No Limitations Description of Symptoms (Recalled from Triage Doc. by RN): PATIENT C/O CONGESTION, PRESSURE IN EARS, FATIGUE, AND WET COUGH HEENT Symptoms (Recalled from RN notes): Yes Resp Symptoms (Recalled from RN notes): No Skin Symptoms (Recalled from RN notes): No MS Symptoms (Recalled from RN notes): No Functional Status (Recalled from RN notes): WNL - History of Present Illness Provider Complaint: Patient states that he hasnt been feeling well in several days and seen his PCP on Monday and started Cefdinir 2 days ago States that they told him to take mucinex DM but it made him feel swimmy headed so he wouldnt take it States that he took an at home COVID test and it was positive earlier today so he wanted to come in and get tested here - Related Data Home Medications Medication Instructions Recorded Confirmed Amlodipine Besylate [Amlodipine 10 mg PO DAILY 12/28/17 12/09/21 10mg Tab] allopurinoL [Allopurinol 300mg 300 mg PO DAILY 12/28/17 12/09/21 tablet] cholecalciferol (vitamin D3) 25 1,000 unit PO DAILY cap 02/27/18 12/09/21 mcg (1,000 unit) capsule Losartan Potassium [Cozaar 100mg 100 mg PO DAILY 10/09/19 12/09/21 Tablets] aspirin 81 mg tablet,delayed 81 mg PO DAILY tab 11/10/20 12/09/21 release [id number]/Sod Sulf,Bicarb,Cl/KCl 240 ml PO Q10M 11/16/21 12/09/21 [[id number] and Electrol
== END 2022-02-19 16:59 | disposition home or self-care (01) ==
PROVIDERS: Emergency Provider Nurse Practitioner; PCP Family Medicine
DX: U07.1 COVID-19 (principal); J06.9 Acute upper respiratory infection, unspecified; J02.9 Acute pharyngitis, unspecified; H93.90 Unspecified disorder of ear, unspecified ear; R53.1 Weakness; R51.9 Headache, unspecified; R42 Dizziness and giddiness; R00.1 Bradycardia, unspecified; R53.82 Chronic fatigue, unspecified; I10 Essential (primary) hypertension; I25.10 Atherosclerotic heart disease of native coronary artery without angina pectoris; K21.9 Gastro-esophageal reflux disease without esophagitis; E78.5 Hyperlipidemia, unspecified; K44.9 Diaphragmatic hernia without obstruction or gangrene; K82.9 Disease of gallbladder, unspecified; M19.90 Unspecified osteoarthritis, unspecified site; G47.33 Obstructive sleep apnea (adult) (pediatric); Z87.442 Personal history of urinary calculi; Z79.52 Long term (current) use of systemic steroids; Z79.82 Long term (current) use of aspirin; Z79.899 Other long term (current) drug therapy; Z95.5 Presence of coronary angioplasty implant and graft
CPT/HCPCS: 99213; C9803; G0463; U0003; U0005

== ENCOUNTER → 2022-03-22 07:39 | Outpatient (CLI) | payer MEDICARE, OTHER, SELFPAY ==
[2022-03-22 14:24] LABS: Basophils # 0.1 K/mm3 (0-0.2); Basophils % 0.7 % (0.1-2.0); Eosinophils # 0.2 K/mm3 (0.0-0.4); Hematocrit 41.7 % (42.0-52.0); Lymphocytes % 28.1 % (10-50); Mean Corpuscular HGB Conc 31.2 g/dL (31.8-35.4); Mean Corpuscular Hemoglobin 32.6 pg (27.0-31.2); Mean Corpuscular Volume 104.2 fl (80-94); Mean Platelet Volume 9.6 fl (7.4-10.4); Monocytes # 0.5 K/mm3 (0.1-1.0); Monocytes % 6.5 % (1.7-9.3); Neutrophils # 4.4 K/mm3 (1.8-7.8); Neutrophils % 61.8 % (37.0-80.0); Platelet Count 302 K/mm3 (142-424); Red Cell Distribution Width 15.3 % (11.5-17.5); White Blood Count 7.1 K/mm3 (4.8-10.8)
[2022-03-22 14:36] LABS: Alanine Aminotransferase 38 U/L (12-78); Albumin/Globulin Ratio 1.8 (1.1-1.8); Alkaline Phosphatase 57 U/L (38-126); Aspartate Amino Transferase 31 U/L (17-59); Bilirubin,Total 0.2 mg/dl (0.2-1.3); Blood Urea Nitrogen 21 mg/dl (9-20); Calcium 9.1 mg/dl (8.4-10.2); Carbon Dioxide 25 mmol/L (22.0-30.0); Chloride 105 mmol/L (98-107); Chol/HDL Ratio 3.2 (1-3.5); Cholesterol 109 mg/dl (140-200); Estimated Glomerular Filt Rate 95 ml/min (>60); GFR (African American) 115 ML/MIN (>60); Globulin 2.2 g/dL (1.3-3.2); Glucose 97 mg/dl (74-100); HDL Cholesterol 34 mg/dl (40-60); Sodium 137 mmol/L (136-145); Total Protein,Serum 6.2 g/dl (6.3-8.2); Triglycerides 120 mg/dl (30-150); VLDL Cholesterol 24 mg/dL (0-40)
[2022-03-22 14:43] LABS: Creatinine,Urine Random 32 mg/dL (Not Estab.); Microalbumin < 6.000 mg/L (0-16.7)
[2022-03-22 14:47] LABS: Direct LDL Cholesterol 56.29 mg/dL (100-129)
[2022-03-22 15:04] LABS: Prostate Specific Ag Screen 1.8 ng/ml (0.0-4.0); Thyroid Stimulating Hormone 3.16 uIU/mL (0.465-4.68)
[2022-03-22 15:23] LABS: Vitamin B12 763 pg/mL (239-931)
== END ==
PROVIDERS: Visit Provider Family Medicine
DX: I10 Essential (primary) hypertension (principal); E78.2 Mixed hyperlipidemia; E53.8 Deficiency of other specified B group vitamins; Z12.5 Encounter for screening for malignant neoplasm of prostate
CPT/HCPCS: 36415; 80053; 80061; 82043; 82570; 82607; 84443; 85025; G0103

== ENCOUNTER → 2022-09-22 10:03 | Outpatient (CLI) | payer MEDICARE, OTHER, SELFPAY ==
--- NOTE | 2022-09-22 | CA_ITS ---
APPROVED REPORT EXAM: Comprehensive 2D, Doppler, and color-flow Echocardiogram Key Carrier: AMADEO De La Rosa, RVS Ht: 5 ft 10 in Wt: 250lbs BSA: 2.29 BP: 154/61 mmHg Indications: CAD, MARCOS, Hx-bradycardia, Murmur, HTN, HLD 2D Dimensions Aortic Root 3.06 cm LA Volume 104.40 mL Left Atrium 3.71 cm LA Volume Index 44.40 mL/m2 (M/F) 16-34 LVOT 1.92 cm (M/F) 1.5-2.5 M-Mode Dimensions RVDd 4.14 cm (0.9-2.6) LA Diam 4.24 cm (1.9-4.0) LVDd 4.92 cm (3.5-5.7) Ao Diam 3.47 cm (2.0-3.7) LVDs 3.35 cm (3.5-5.7) IVSd 0.98 cm (0.6-1.1) PWd 1.13 cm (0.6-1.1) EF (Teich) 59.80% EPSs 0.30 cm FS 31.90% EDV (Teich) 113.90 mL ESV (Teich) 45.80 mL LV Diastology E Decel Time 197.00 (160-240 msec) E/A Ratio 0.95 MED E' 7.80 (< 7 cm/sec) MED A' 10.20 cm/s E'/MED E' Ratio 12.00 (>14) LAT E' 7.00 (<10 cm/sec) LAT A' 10.00 cm/s E/LAT E' Ratio 13.37 (>14) Aortic Valve AoV Peak Akin. 197.00 (50-130 cm/s) AO Peak GR. 15.60 mmHg AO Mean GR. 7.80 (<5 mmHg) AO VTI 45.44 (18-25 cm) Mitral Valve MV A Velocity 99.00 (40-130 cm/s) E/A Ratio 0.95 MV Decel. Time 197.00 (160-240 ms) Pulmonary Valve PV Peak Velocity 82.00 (50-150 cm/s) Left Ventricle Left atrium is mildly enlarged, left ventricle is normal size mild concentric left ventricular hypertrophy, estimated ejection fraction 55% with no regional wall motion abnormality, grade 1 diastolic dysfunction seen without tissue Doppler evidence of raise left atrial pressure. Right Ventricle Right atrium and right ventricle are mildly enlarged with normal contractility. Aortic Valve Aortic valve is thickened and calcified without Doppler evidence of aortic stenosis aortic insufficiency. Mitral Valve Mitral valve leaflets are minimally thickened, there is mild mitral regurgitation. Tricuspid Valve Tricuspid valve grossly normal, there is mild tricuspid regurgitation, tricuspid regurgitation jet velocity is inadequate for calculation of the right ventricular systolic pressure. Pulmonic Valve Pulmonic valve is poorly visualized. Great Vessels Aortic root is normal size. Inferior vena cava is poorly visualized. Pericardium No significant pericardial effusion noted. Conclusion 1. Mild biatrial enlargement, normal left ventricular size, mild concentric left ventricular hypertrophy, estimated ejection fraction 55% with no regional wall motion abnormality, grade 1 diastolic dysfunction seen without tissue Doppler evidence of raise left atrial pressure. 2. Mildly enlarged right ventricle with normal contractility 3. Thickened and calcified aortic valve without aortic stenosis aortic insufficiency. 4. Mild mitral and tricuspid regurgitation. 5. No significant pericardial effusion. 6. Inferior vena cava is poorly visualized. Electronically signed by : Daniel Avila MD 09/23/2022 13:18:26
== END ==
LOC: RT 10:04
PROVIDERS: PCP Family Medicine; Visit Provider Family Medicine
DX: R01.1 Cardiac murmur, unspecified (principal)
CPT/HCPCS: 93306

== ENCOUNTER 2023-05-03 12:54 | Emergency (ER) | payer MEDICARE, OTHER, SELFPAY ==
[2023-05-03] VITALS (7 sets, daily range): BP systolic 102–134; BP diastolic 47–68; PULSE 56–74; RESP 18–20; TEMP 36.5; O2SAT 94–98; BMI 35.9
--- NOTE | 2023-05-03 13:02 | ECG_ITS ---
APPROVED REPORT Exam: Resting ECG HR:62 bpm ECG Measurements Heart Rate 62 AXES DC 187 P 27 QRSd 78 QRS -34 QT 348 T 37 QTc 354 Conclusion SINUS RHYTHM LOW QRS VOLTAGE IN PRECORDIAL LEADS [QRS DEFLECTION < 1.0 mV IN CHEST LEADS] POSSIBLE ANTERIOR MYOCARDIAL INFARCTION , PROBABLY OLD [30 ms Q WAVE IN V3/V4, OR R < 0.2 mV IN V4] INFERIOR MYOCARDIAL INFARCTION , PROBABLY OLD [40+ ms Q WAVE AND/OR ST/T ABNORMALITY IN II/aVF] ABNORMAL ECG UNCONFIRMED REPORT Electronically signed by : Efrain Gómez MD 05/04/2023 06:42:20
--- NOTE | 2023-05-03 13:50 | PC.NURSE ---
Dr. Kwon at for patient eval
--- NOTE | 2023-05-03 13:59 | HMH.EDGENADL ---
Discharge Plan Disposition Patient Disposition: Home, Self-Care Condition: Fair Prescriptions Prescriptions: No Action cholecalciferol (vitamin D3) 1,000 unit capsule 1,000 unit PO DAILY aspirin [Adult Low Dose Aspirin] 81 mg tablet,delayed release (DR/EC) 81 mg PO DAILY spironolactone 50 mg tablet 50 mg PO DAILY Qty: 90 3RF atorvastatin 40 mg tablet 40 mg PO DAILY Qty: 30 0RF methylprednisolone 4 MG tablet 4 mg PO DIRECTED Qty: 21 0RF Rx Instructions: Take as directed on package instructions guaifenesin 600 MG tablet extended release 12hr 1 - 2 tab PO Q12H PRN (Reason: Congestion) Qty: 20 0RF amlodipine 10 MG tablet 10 mg PO DAILY allopurinol 300 MG tablet 300 mg PO DAILY losartan 100 MG tablet 100 mg PO DAILY peg 3350-electrolytes 4,000 ML recon soln 240 ml PO Q10M Rx Instructions: until fecal effluent is clear Referrals Follow up/Referrals: Paresh Morales MD [Primary Care Provider] - See instructions Activity Restrictions/Add. Instructions Additional Instructions/Restrictions: Dr. Morales has an appointment for you tomorrow, 05/04/2023 at 11:45 AM. You must go to this appointment. Drink plenty of water. Do not take your spironolactone until Dr. Morales instructs you to take it again. Continue taking all other home medications as previously prescribed. Return to the emergency department with any new or worsening symptoms. Clinical Impressions Clinical Impression: Acute dehydration, Hyperkalemia Heat exhaustion Qualifiers: Encounter type: initial encounter Qualified Code(s): T67.5XXA - Heat exhaustion, unspecified, initial encounter Instructions Patient Instructions: DI for Diarrhea and Traveler's Diarrhea -- Adult, DI for Diarrhea and Traveler's Diarrhea -- Child, DI for Nausea -- Adult, DI for Nausea -- Child Discharge ED Provider: Delon Kwon Adult [facility] General Chief complaint: Nausea/Vomiting/Diarrhea Stated complaint: hot flashes, lightheaded Time Seen by Provider: 05/03/23 13:43 Mode of Arrival: Ambulatory Source of Information: Patient and Relative Limitations: No Limitations Description of Symptoms (Recalled from ER Triage Doc. by RN): c/o diarrhea, nausea and sweaty that came on all at once after taking the horses to the barn. States that he is starting to feel better. History of Present Illness HPI narrative: This 73-year-old male presents to the emergency department concerned that he got overheated. He states he was bringing in horses when he started sweating and could not stop. He states he felt nauseous and had an episode of diarrhea. Nonbloody, not black. Patient states he feels better and has stopped sweating now that he is resting in the emergency department. He states he did not have any chest pain. He was not dizzy but did feel lightheaded. Patient takes blood pressure medication and is currently on a pregabalin taper. Related Data Home Medications Medication Instructions Recorded Confirmed allopurinol 300 mg tablet 300 mg PO DAILY Gout 12/28/17 03/03/22 amlodipine 10 mg tablet 10 mg PO DAILY Hypertension 12/28/17 03/03/22 cholecalciferol (vitamin D3) 25 1,000 unit PO DAILY Supplement 02/27/18 03/03/22 mcg (1,000 unit) capsule losartan 100 mg tablet 100 mg PO DAILY blood pressure 10/09/19 03/03/22 aspirin 81 mg tablet,delayed 81 mg PO DAILY HEART HEALTH 11/10/20 03/03/22 release (Adult Low Dose Aspirin) peg 3350-electrolytes 236 240 ml PO Q10M bowel prep 11/16/21 03/03/22 gram-22.74 gram-6.74 gram-5.86 gram solution Previous Rx's Medication Instructions Recorded spironolactone 50 mg tablet 50 mg PO DAILY Fluid #90 tabs 05/16/18 atorvastatin 40 mg tablet 40 mg PO DAILY Cholesterol #30 tabs 06/13/19 guaifenesin 600 mg tablet, 1 - 2 tab PO Q12H PRN Congestion 02/19/22 extended release 12 hr #20 tabs methylprednisolone 4 mg tablet 4 mg PO DIRECTED #21 tabs 02/19/22 All
[2023-05-03 14:05] LABS: Basophils # 0.1 K/mm3 (0-0.2); Basophils % 0.3 % (0.1-2.0); Eosinophils # 0.1 K/mm3 (0.0-0.4); Eosinophils % 0.9 % (0.1-12.0); Hemoglobin 14.6 g/dL (14.1-18.0); Lymphocytes # 2.4 K/mm3 (0.7-4.5); Lymphocytes % 17.8 % (10-50); Mean Corpuscular HGB Conc 33.2 g/dL (31.8-35.4); Mean Corpuscular Hemoglobin 32.6 pg (27.0-31.2); Mean Corpuscular Volume 98.3 fl (80-94); Monocytes # 0.7 K/mm3 (0.1-1.0); Monocytes % 5.3 % (1.7-9.3); Neutrophils # 10.4 K/mm3 (1.8-7.8); Neutrophils % 75.7 % (37.0-80.0); Platelet Count 324 K/mm3 (142-424); Red Blood Count 4.47 M/mm3 (4.60-6.20); Red Cell Distribution Width 13.6 % (11.5-17.5); White Blood Count 13.7 K/mm3 (4.8-10.8)
[2023-05-03 14:09] LABS: Alanine Aminotransferase 51 U/L (12-78); Albumin Level 4.7 g/dl (3.5-5.0); Albumin/Globulin Ratio 1.6 (1.1-1.8); Alkaline Phosphatase 60 U/L (38-126); Aspartate Amino Transferase 40 U/L (17-59); Bilirubin,Total 0.5 mg/dl (0.2-1.3); Blood Urea Nitrogen 26 mg/dl (9-20); Calcium 9.8 mg/dl (8.4-10.2); Carbon Dioxide 24 mmol/L (22.0-30.0); Chloride 101 mmol/L (98-107); Creatinine Clearance Estimated 73 mL/min (50-200); Estimated Glomerular Filt Rate 49 ml/min (>60); GFR (African American) 60 ML/MIN (>60); Globulin 2.9 g/dL (1.3-3.2); Glucose 135 mg/dl (74-100); Sodium 138 mmol/L (136-145); Total Protein,Serum 7.6 g/dl (6.3-8.2)
--- NOTE | 2023-05-03 14:14 | PC.NURSE ---
LAB CALLED WITH CRITICAL POTASSIUM OF 6.0 MD AWARE
[2023-05-03 14:38] LABS: Troponin I < 0.01 ng/ml (0.00-0.034)
--- NOTE | 2023-05-03 14:42 | PC.NURSE ---
pt resting in bed nothing needed at this time,call light at bs
--- NOTE | 2023-05-03 15:50 | PC.NURSE ---
Dr. Kwon at for update on POC/results.
--- NOTE | 2023-05-03 16:03 | PC.NURSE ---
DR UMAÑA SPEAKING WITH DR AVILA
[2023-05-03 16:11] LABS: Potassium 6.2 mmoL/L (3.5-5.1)
== END 2023-05-03 16:48 | disposition home or self-care (01) ==
PROVIDERS: Emergency Provider Emergency Medicine; PCP Family Medicine
DX: E87.5 Hyperkalemia (principal); E86.0 Dehydration; R11.0 Nausea; Z87.891 Personal history of nicotine dependence
CPT/HCPCS: 36415; 80053; 84132; 84484; 85025; 93005; 96360; 99284

== ENCOUNTER 2023-12-29 08:14 | Day surgery (SDC) | payer MEDICARE, OTHER, SELFPAY ==
[2023-12-27 13:11] VITALS: BMI 35.8
[2023-12-29 08:37] VITALS: BP 180/74; PULSE 61; RESP 18; TEMP 36.7; O2SAT 98
[2023-12-29] MEDS: LACTATED RINGERS 1000ML 1,000 ML 25 ML IV (08:54)
--- NOTE | 2023-12-29 09:02 | HMH.SCOPE ---
Procedure: Date: 12/29/23 Patient Date of :: 1950 Procedure Performed:: Total colonoscopy to terminal ileum with polypectomy using hot snare, cold snare, and biopsy forceps Indications:: Patient is a 73-year-old male from [facility] whom I had seen in the past for gallbladder disease as well as bilateral inguinal hernias. I had performed colonoscopy on 11/19/2021 at which time he had 13 tubular adenomas ranging in size from 2 to 13 mm. Most were approximately 6 to 8 mm. Given the large number of moderately complex adenomatous polyps 2-year follow-up colonoscopy was recommended. Performing Provider:: Clifton Lujan MD Referring Provider:: Paresh Morales MD Sedation:: MAC sedation Procedure:: Patient history was obtained and appropriate physical examination was performed. Patient's medications and allergies were reviewed. Informed consent was obtained after explaining the benefits, alternatives, and risks of the procedure including, but not limited to, bleeding, perforation, missed lesions, and adverse reaction to anesthesia medications. Patient was transported to endoscopy procedure room. Patient was connected to monitoring devices. Throughout the procedure the patient's blood pressure, pulse, and oxygen saturations were monitored continuously. Patient identification and planned procedure were verified by the staff. Patient was positioned in lateral decubitus position. Digital anorectal exam was performed. Variable stiffness Olympus colonoscope was inserted and advanced under direct visualization to the cecum. Adequacy of the colonic preparation was noted. The colonoscope was advanced a short distance into the terminal ileum. The colonoscope was then slowly withdrawn while carefully examining the color, texture, anatomy, and integrity of the mucosoa circumferentially. Within the rectum retroflexion was performed. Colonoscope was then withdrawn. . Impression: Advancement of the colonoscope was somewhat difficult due to significant redundancy and floppiness of the sigmoid colon. It was ultimately advanced to the cecum and into the terminal ileum. In the ascending colon just proximal to the hepatic flexure there was an irregular sessile adenomatous polyp removed with hot snare. Initially it was unable to be retrieved and the colonoscope was readvanced to the cecum. There was a tiny proximal ascending colon polyp removed with biopsy forceps. Previously mentioned polyp was then retrieved. Colonoscope was withdrawn through the colon and in the descending colon there was a tiny diminutive polyp removed with cold snare. The proximal sigmoid colon there was a tiny polyp removed with biopsy forceps. He had pandiverticulosis. . Findings:: Polyps as noted above. Most notable polyp was the ascending colon polyp proximal to the hepatic flexure removed with hot snare Pandiverticulosis Recommendations:: Repeat colonoscopy pending pathology, likely 3 years. Complications:: None immediately apparent Estimated blood obtained (mL): 2 Colonoscopy Component Colonoscopy Component Was a colonoscopy performed during today's procedure?: Yes Recommended follow up colonoscopy of at least 10 years?: No If no, follow up colonoscopy recommended in ___ years?: 3 Reason for not recommending >/= 10 yr follow-up interval?: Polyps
--- NOTE | 2023-12-29 09:11 | P.PNANES_ITS ---
[facility] Disclaimer: The information contained in this section may have been updated after the patient was seen, as this information can be updated by other users. Medical History Uses hearing aid Kidney stone Sleep apnea History of COVID-19 Hyperlipidemia Hypertension Sinus bradycardia Snoring Edema Surgical History (Updated 12/29/23 @ 08:33 by Sadaf Ron RN) History of appendectomy History of right cataract surgery History of left cataract surgery History of partial knee replacement History of hernia surgery History of cholecystectomy History of surgery Family History Father Cancer Sister Heart disease Social History Smoking Status: Former smoker tobacco type: cigarettes second hand exposure: No alcohol intake: current counseling provided: none substance use type: denies use current occupational status: retired Travel in the last 8 weeks: None household members: other housing: house current occupational exposures/hazards: No caffeine: Yes [facility] Anesthesia Checklist Patient Identification Patient Identification: Arm Band Structural Data Admitted From: Home Planned Operative Procedure/s: Colonoscopy Consent for Planned Operative Procedure(s) Verified: Yes Verified Documents: Surgical Consent and History and Physical NPO Status Verified Time NPO: 00:00 Additional verifications Anesthesia Reactions: No Hx Blood Transfusions: No Blood Transfusion Reaction: Yes Airway Assessment Mallampati Score:: Class II C-Spine Mobility Assessed: Yes TMJ Mobility Assessed: Yes Dentition: Good Dentition Neurological Assessment Level of Consciousness: Awake and Alert Anesthesia Plan Anesthesia Risk discussed: Yes Anesthesia Plan: Verified ASA Class: III Anesthesia Type: MAC
[2023-12-29 09:17] VITALS: O2SAT 98
[2023-12-29 10:20] VITALS: BP 125/77; PULSE 62; RESP 16; TEMP 36.4; O2SAT 91
[2023-12-29 10:30] VITALS: BP 145/102; PULSE 66; RESP 16; TEMP 36.6; O2SAT 92
[2023-12-29 10:40] VITALS: BP 161/82; PULSE 63; RESP 16; O2SAT 92
[2023-12-29 10:50] VITALS: BP 161/82; PULSE 57; RESP 16; TEMP 36.6; O2SAT 95
== END 2023-12-29 11:05 | disposition home or self-care (01) ==
PROVIDERS: PCP Family Medicine; Visit Provider Surgery
PROC: 0DJD8ZZ Inspection of Lower Intestinal Tract, Via Natural or Artificial Opening Endoscopic (ICD-10-PCS; CPT 45380; principal; 2023-12-29 09:30)
DX: Z86.010 Personal history of colon polyps (principal); K63.5 Polyp of colon; D12.2 Benign neoplasm of ascending colon; Z12.11 Encounter for screening for malignant neoplasm of colon; K57.90 Diverticulosis of intestine, part unspecified, without perforation or abscess without bleeding
CPT/HCPCS: 45380; 45385; J2704

== ENCOUNTER 2024-03-26 07:42 | Outpatient (CLI) | payer MEDICARE, OTHER, SELFPAY ==
--- NOTE | 2024-03-26 | CA_ITS ---
FINAL REPORT TECHNIQUE: Real-time imaging was performed of the extracranial carotid arteries in transverse and longitudinal planes, with color duplex evaluation of blood flow velocity. Spectral analysis was performed. The cervical vertebral arteries were also examined. CLINICAL HISTORY: BRUIT,HTN,EX SMOKER FINDINGS: NASCET technique is utilized for stenosis evaluation. Right carotid system (centimeters/second): CCA: 76 ICA: 81 Vertebral artery: Antegrade ICA/CCA ratio: 1.1 Mild plaque is identified at the bifurcation. Left carotid system (centimeters/second): CCA: 89 ICA: 131 Vertebral artery: Antegrade ICA/CCA ratio: 1.5 [id number] plaque is identified at the bifurcation. IMPRESSION: Less than 50 % right ICA stenosis. Less than 50 % left ICA stenosis. Reviewed, Interpreted and Dictated by Odette Thompson MD Transcribed by Lexie Hermosillo Authenticated and [facility]
== END 2024-03-26 23:59 | disposition home or self-care (01) ==
LOC: RT 07:43
PROVIDERS: PCP Family Medicine; Visit Provider Family Medicine
DX: R09.89 Other specified symptoms and signs involving the circulatory and respiratory systems (principal)
CPT/HCPCS: 93880

== ENCOUNTER 2024-04-12 10:06 | Outpatient (CLI) | payer MEDICARE, OTHER, SELFPAY ==
--- NOTE | 2024-04-12 10:11 | XR_ITS ---
FINAL REPORT CLINICAL HISTORY: PAIN LEFT FOOT FINDINGS: Left foot Three views were obtained. There is no acute fracture or dislocation. The joint spaces appear normal. No soft tissue abnormality is identified. There is a small plantar spur. IMPRESSION: No acute process. Reviewed, Interpreted and Dictated by Reid Lr MD Transcribed by Lexie Hermosillo Authenticated and . [facility]
--- NOTE | 2024-04-12 10:11 | XR_ITS ---
FINAL REPORT CLINICAL HISTORY: PAIN IN RT FOOT FINDINGS: Right foot Three views were obtained. There is no acute fracture or dislocation. The joint spaces appear normal. No soft tissue abnormality is identified. There is a moderate plantar spur. IMPRESSION: No acute process. Reviewed, Interpreted and Dictated by Reid Lr MD Transcribed by Lexie Hermosillo Authenticated and [facility]
== END 2024-04-12 23:59 | disposition home or self-care (01) ==
LOC: RAD 10:08
PROVIDERS: PCP Family Medicine; Visit Provider Family Medicine
DX: M79.671 Pain in right foot (principal); M79.672 Pain in left foot
CPT/HCPCS: 73630

== ENCOUNTER 2024-04-16 19:25 | Emergency (ER) | payer MEDICARE, OTHER, SELFPAY ==
[2024-04-16 19:26] VITALS: BP 187/78; PULSE 66; RESP 20; TEMP 36.9; O2SAT 96; BMI 34.8
[2024-04-16 19:35] VITALS: BP 187/78; PULSE 74; O2SAT 95
--- NOTE | 2024-04-16 19:36 | HMH.EDGENADL ---
Discharge Plan Disposition Patient Disposition: Home, Self-Care Prescriptions Prescriptions: New ondansetron 4 mg tablet,disintegrating 4 mg PO Q8H PRN (Reason: nausea and vomiting) 4 Days Qty: 12 0RF No Action aspirin [Adult Low Dose Aspirin] 81 mg tablet,delayed release (DR/EC) 81 mg PO DAILY atorvastatin 40 mg tablet 40 mg PO DAILY Qty: 30 0RF amitriptyline 100 mg Tablet 50 mg PO DAILY amlodipine 10 MG tablet 10 mg PO DAILY allopurinol 300 MG tablet 300 mg PO DAILY losartan 100 MG tablet 100 mg PO DAILY Referrals Follow up/Referrals: Paresh Morales MD [Primary Care Provider] - See instructions Activity Restrictions/Add. Instructions Additional Instructions/Restrictions: At this time it was felt you are safe to be discharged home. If new or worsening symptoms please do not hesitate to return the emergency department. Please take medications as prescribed. Clinical Impressions Clinical Impression: Vomiting, Headache, Acute viral syndrome Instructions Patient Instructions: DI for Diarrhea and Traveler's Diarrhea -- Adult, DI for Diarrhea and Traveler's Diarrhea -- Child, DI for Nausea -- Adult, DI for Nausea -- Child Print Language Print Language: [place] Discharge ED Provider: Oneil Toure General Adult HPI General Chief complaint: Nausea/Vomiting/Diarrhea Stated complaint: HBP, nausea Time Seen by Provider: 04/16/24 19:28 History of Present Illness HPI narrative: Patient is a 74-year-old male with past medical history of hypertension, recently started on Contrave for weight loss who presents to the emergency department for evaluation of multiple complaints. Since Monday he has had intractable nonbloody vomiting with some p.o. intake staying down. He has normal stooling. No abdominal pain, no chest pain. There is a holocranial headache that is not debilitating and does not have any associated visual symptoms. No trauma reported. Due to persistent symptoms and inability to tolerate p.o. he presents here for continued evaluation. This morning was the first time he took 2 pills of Contrave in the morning. Related Data Home Medications ?Medication ?Instructions ?Recorded ?Confirmed allopurinol 300 mg tablet 300 mg PO DAILY Gout 12/28/17 01/11/24 amlodipine 10 mg tablet 10 mg PO DAILY Hypertension 12/28/17 01/11/24 losartan 100 mg tablet 100 mg PO DAILY blood pressure 10/09/19 01/11/24 aspirin 81 mg tablet,delayed 81 mg PO DAILY HEART HEALTH 11/10/20 01/11/24 release (Adult Low Dose Aspirin) amitriptyline 100 mg tablet 50 mg PO DAILY 12/27/23 01/11/24 Previous Rx's ?Medication ?Instructions ?Recorded atorvastatin 40 mg tablet 40 mg PO DAILY Cholesterol #30 tabs 06/13/19 ondansetron 4 mg disintegrating 4 mg PO Q8H PRN nausea and 04/16/24 tablet vomiting 4 days #12 tabs Allergies Allergy/AdvReac Type Severity Reaction Status Date / Time No Known Allergies Allergy Verified 01/11/24 09:18 [facility] Disclaimer: The information contained in this section may have been updated after the patient was seen, as this information can be updated by other users. Medical History Uses hearing aid Kidney stone SX Sleep apnea History of COVID-19 Hyperlipidemia Hypertension Sinus bradycardia Snoring Edema Surgical History History of appendectomy History of right cataract surgery History of left cataract surgery History of partial knee replacement right History of hernia surgery History of cholecystectomy History of surgery HEART STENT X1 Family History Father Cancer Sister Heart disease Social History Smoking Status: Never smoker second hand exposure: No alcohol intake: current alcohol intake frequency: holidays/special occasions only counseling provided: none substance use type: denies use current occupational status: retired Travel in the last 8 weeks: None household members: other housing: house current occupational exposures/hazards: No caffeine: Yes ROS Obtained: Yes Systems reviewed as appropriate & no additional complaints except as documented Physical Exam General General appearance: alert and in no apparent distress Head Head exam: atraumatic and normocephalic Eye Eye exam: Present PERRL and EOMI ENT ENT exam: Present mucous membranes moist Neck Neck exam: Present normal inspection Chest Chest inspection: Present normal inspection and symmetric chest wall rise Respiratory Respiratory exam: Absent respiratory distress Cardiovascular Cardiovascular exam: Present regular rate and normal rhythm Abdominal Exam Abdominal exam: Present soft; Absent tenderness, guarding, rebound or rigidity Extremities Exam Extremities exam: Present normal inspection Neurological Exam Neurological exam: Present alert Psychiatric Psychiatric exam: Present normal affect Skin Skin exam: Present warm and dry Medical Decision Making Markos Inquiry Pt receiving controlled substance: No Vital Signs: 04/16/24 19:26 04/16/24 19:35 04/16/24 20:00 Temperature 98.4 F Temperature Source Oral Pulse Rate 74 58 L Pulse Rate [Left Radial] 66 Respiratory Rate 20 Blood Pressure 187/78 H 161/61 H Blood Pressure [Right Arm] 187/78 H Blood Pressure Mean [Right Arm] 114 02 Sat by Pulse Oximetry 96 95 96 Oxygen Delivery Method Room Air 04/16/24 20:31 Temperature Temperature Source Pulse Rate 57 L Pulse Rate [Left Radial] Respiratory Rate Blood Pressure 158/61 H Blood Pressure [Right Arm] Blood Pressure Mean [Right Arm] 02 Sat by Pulse Oximetry 96 Oxygen Delivery Method Lab Data Lab Results 04/16/24 19:39: WBC 12.6 H, RBC 4.81, Hgb 15.7, Hct 46.0, MCV 95.6 H, MCH 32.7 H, MCHC 34.2, RDW 14.4, Plt Count 354, MPV 8.3, Neut % (Auto) 68.8, Lymph % (Auto) 23.4, [place] % (Auto) 5.1, Eos % (Auto) 2.1, Baso % (Auto) 0.7, Neut # (Auto) 8.6 H, Lymph # (Auto) 2.9, [place] # (Auto) 0.6, Eos # (Auto) 0.3, Baso # (Auto) 0.1, Sodium 139, Potassium 3.9, Chloride 104, Carbon Dioxide 23, Anion Gap 15.9 H, BUN 17, Creatinine 0.90, Estimated Creat Clear 101, Estimated GFR 82, Est GFR ( Amer) 99, Glucose 125 H, Calcium 9.8, Total Bilirubin 0.9, AST 66 H, ALT 76, Alkaline Phosphatase 77, Total Protein 7.8, Albumin 4.8, Globulin 3.0, Albumin/Globulin Ratio 1.6, Lipase 68 04/16/24 20:59: Urine Color Yellow, Urine Appearance Clear, Urine pH 7.0, Ur Specific [place] 1.020, Urine Protein Negative, Urine Glucose (UA) Negative, Urine Ketones Negative, Urine Blood Negative, Urine Nitrate Negative, Urine Bilirubin Negative, Urine Urobilinogen 1.0, Ur Leukocyte Esterase Negative, Urine RBC 3-5, Urine WBC 3-5, Urine Bacteria Trace, Urine Mucus 3+ 04/16/24 19:39 04/16/24 19:39 Orders (Tests/Meds): ED MEDICATIONS Discontinued Medications Generic Name Dose Route Start Last Admin Trade Name Costa PRN Reason Stop Dose Admin Acetaminophen 1,000 mg 04/16/24 19:34 04/16/24 19:42 Acetaminophen 1,000mg/100ml Vial IV 04/16/24 19:35 1,000 mg ONCE ONE Administration Lactated Ringer's 1,000 mls @ 999 mls/hr 04/16/24 19:34 04/16/24 19:42 Lactated Ringer's 1000 Ml Bag IV 04/16/24 20:34 999 mls/hr .Q1H1M ONE Administration Ketorolac Tromethamine 30 mg 04/16/24 19:34 04/16/24 19:42 Ketorolac 30mg/Ml Vial IV 04/16/24 19:35 30 mg ONCE ONE Administration Ondansetron HCl 4 mg 04/16/24 19:34 04/16/24 19:42 Ondansetron 4mg/2ml Vial IV 04/16/24 19:35 4 mg ONCE ONE Administration Ondansetron HCl 4 mg 04/16/24 21:43 Ondansetron 4mg Odt SL 04/16/24 21:44 ONCE ONE ORDERS Category Date Time Status CBC w/Auto Diff [Complete Blood Count Auto Diff] Stat Lab 04/16/24 19:39 Completed CMP [Comprehensive Metabolic Panel] Stat Lab 04/16/24 19:39 Completed Lipase Stat Lab 04/16/24 19:39 Completed UA [Urinalysis and Microscopic] Stat Lab 04/16/24 20:59 Completed Medical Decision Narrative: In summary patient is a 74-year-old male with past medical history described above presents emergency department for evaluation of vomiting and headache. Patient is hemodynamically stable nontoxic-appearing arrival, afebrile. Patient has a benign abdominal exam, nonfocal neurologic exam upon my initial assessment. Differential includes nonspecific viral syndrome, pancreatitis, medication side effect given temporal relationship with recent initiation, UTI, among others. Workup to be conducted with hematologic labs, urinalysis. Initial inventions include crystalloid bolus, Zofran, IV Tylenol and Toradol. Intracranial imaging was considered however he has a nonfocal neurologic exam will be deferred. Intra-abdominal imaging was also considered however patient does not have any abdominal pain and has just vomiting and combined with a benign abdominal exam will be deferred at this point. Initial order reviewed by me, hematologic labs are nonactionable, mild leukocytosis which I would expect, no MELINDA or critical electrolyte abnormality, urinalysis interpreted by me and not consistent with infection. On repeat evaluation patient had resolving symptoms, was tolerating p.o. at bedside. Given this patient will be given sublingual Zofran to bridge him until the morning will be discharged with a course of Zofran as I presume he has a viral syndrome that many in the community have currently and he was given return precautions and verbalized understanding. Critical Care Critical Care Time Critical Care Time: No
[2024-04-16] MEDS: KETOROLAC 30MG/ML VIAL 30 MG IV (19:42)
[2024-04-16] MEDS: ACETAMINOPHEN 1,000MG/100ML VIAL 1000 MG IV (19:42)
[2024-04-16] MEDS: LACTATED RINGERS 1000ML 1,000 ML 999 ML IV (19:42)
[2024-04-16] MEDS: ONDANSETRON 4MG/2ML VIAL 4 MG IV (19:42)
[2024-04-16 19:49] LABS: Basophils # 0.1 K/mm3 (0-0.2); Basophils % 0.7 % (0.1-2.0); Eosinophils # 0.3 K/mm3 (0.0-0.4); Eosinophils % 2.1 % (0.1-12.0); Hemoglobin 15.7 g/dL (14.1-18.0); Lymphocytes # 2.9 K/mm3 (0.7-4.5); Lymphocytes % 23.4 % (10-50); Mean Corpuscular HGB Conc 34.2 g/dL (31.8-35.4); Mean Corpuscular Hemoglobin 32.7 pg (27.0-31.2); Mean Corpuscular Volume 95.6 fl (80-94); Mean Platelet Volume 8.3 fl (7.4-10.4); Monocytes # 0.6 K/mm3 (0.1-1.0); Monocytes % 5.1 % (1.7-9.3); Neutrophils # 8.6 K/mm3 (1.8-7.8); Neutrophils % 68.8 % (37.0-80.0); Platelet Count 354 K/mm3 (142-424); Red Blood Count 4.81 M/mm3 (4.60-6.20); Red Cell Distribution Width 14.4 % (11.5-17.5); White Blood Count 12.6 K/mm3 (4.8-10.8)
[2024-04-16 20:00] VITALS: BP 161/61; PULSE 58; O2SAT 96
[2024-04-16 20:02] LABS: Alanine Aminotransferase 76 U/L (12-78); Albumin Level 4.8 g/dl (3.5-5.0); Albumin/Globulin Ratio 1.6 (1.1-1.8); Alkaline Phosphatase 77 U/L (38-126); Anion Gap 15.9 mEq/L (5-15); Aspartate Amino Transferase 66 U/L (17-59); Bilirubin,Total 0.9 mg/dl (0.2-1.3); Blood Urea Nitrogen 17 mg/dl (9-20); Calcium 9.8 mg/dl (8.4-10.2); Carbon Dioxide 23 mmol/L (22.0-30.0); Chloride 104 mmol/L (98-107); Creatinine Clearance Estimated 101 mL/min (50-200); Estimated Glomerular Filt Rate 82 ml/min (>60); GFR (African American) 99 ML/MIN (>60); Glucose 125 mg/dl (74-100); Lipase 68 U/L (23-300); Potassium 3.9 mmoL/L (3.5-5.1); Sodium 139 mmol/L (136-145); Total Protein,Serum 7.8 g/dl (6.3-8.2)
[2024-04-16 20:31] VITALS: BP 158/61; PULSE 57; O2SAT 96
[2024-04-16 21:05] LABS: Microscopic, Urine URINE MICROSCOPIC (MICROSCOPIC)
[2024-04-16 21:09] LABS: Appearance,Urine CLEAR (Clear); Bilirubin,Urine Negative (Negative); Blood, Urine Negative (Negative); Color,Urine YELLOW (Yellow); Glucose,Urine (UA) Negative (Negative); Ketones,Urine Negative (Negative); Leukocyte Esterase,Urine Negative (Negative); Nitrate,Urine Negative (Negative); Protein,Urine Negative (Negative)
[2024-04-16 21:23] LABS: Bacteria,Urine Trace /lpf
[2024-04-16 21:24] LABS: Mucus,Urine 3+ /lpf
[2024-04-16] MEDS: ONDANSETRON 4MG ODT 4 MG SL (21:48)
[2024-04-16 21:53] VITALS: BP 167/63; PULSE 61; RESP 20; TEMP 36.7; O2SAT 96
== END 2024-04-16 21:55 | disposition home or self-care (01) ==
PROVIDERS: Emergency Provider Emergency Medicine; PCP Family Medicine
DX: R51.9 Headache, unspecified (principal); R11.2 Nausea with vomiting, unspecified; B34.9 Viral infection, unspecified; I10 Essential (primary) hypertension; E78.5 Hyperlipidemia, unspecified
CPT/HCPCS: 80053; 81001; 83690; 85025; 96361; 96374; 96375; 99284; J0131; J1885; J2405; J7120; Q0162

== ENCOUNTER 2024-09-18 09:59 | Outpatient (CLI) | payer MEDICARE, SELFPAY ==
--- NOTE | 2024-09-18 10:03 | XR_ITS ---
FINAL REPORT TECHNIQUE: 5 views CLINICAL HISTORY: PAIN COMPARISON: None FINDINGS: LUMBAR SPINE: AP, lateral and oblique views of the lumbar spine were obtained. There is no prior exam for comparison. There is no acute fracture or malalignment. Vertebral body height is preserved. Disc space height is preserved. Dense vascular calcifications are present. There is dense facet sclerosis present in the lower lumbar spine. IMPRESSION: Degenerative change as described, with no acute process. Reviewed, Interpreted and Dictated by Reid Lr MD Transcribed by Anjali Hinson Authenticated and [facility]
== END 2024-09-18 23:59 | disposition home or self-care (01) ==
PROVIDERS: PCP Family Medicine; Visit Provider Family Medicine
DX: M79.661 Pain in right lower leg (principal); M79.662 Pain in left lower leg
CPT/HCPCS: 72110

== ENCOUNTER 2024-10-02 14:37 | Outpatient (CLI) | payer MEDICARE, SELFPAY ==
--- NOTE | 2024-10-02 14:39 | MR_ITS ---
FINAL REPORT CLINICAL HISTORY: SCOTT LEG PAIN burning sensation in both legs FINDINGS: Multiplanar MR imaging of the lumbar spine was performed without contrast. On the sagittal T2-weighted images, there is abnormal decreased signal throughout the lumbar discs. The vertebrae are of normal height. The vertebral alignment is normal. L1-2: There is no significant canal stenosis or neural foraminal narrowing. L2-3: There is no significant canal stenosis or neural foraminal narrowing. L3-4: Mild diffuse disc bulge. Moderate bilateral neuroforaminal narrowing. L4-5: Moderate diffuse disc bulge. Mild spinal and moderate to high-grade bilateral neuroforaminal narrowing. L5-S1: Mild diffuse disc bulge and moderate facet hypertrophy. Moderate to high-grade bilateral neuroforaminal narrowing. IMPRESSION: Multilevel degenerative disc disease. Reviewed, Interpreted and Dictated by Reid Lr MD Transcribed by Lexie Hermosillo Authenticated and [facility]
== END 2024-10-02 23:59 | disposition home or self-care (01) ==
LOC: RAD 14:37
PROVIDERS: PCP Family Medicine; Visit Provider Family Medicine
DX: M47.816 Spondylosis without myelopathy or radiculopathy, lumbar region (principal); M79.661 Pain in right lower leg; M79.662 Pain in left lower leg; G62.9 Polyneuropathy, unspecified
CPT/HCPCS: 72148

== ENCOUNTER 2024-10-17 12:47 | Outpatient (POV) | payer MEDICARE, OTHER, SELFPAY ==
--- NOTE | 2024-10-17 13:27 | EXP.PAIN.OV ---
HPI Data of Consult Patient: new to practice Consult date: 10/17/24 Requesting Physician: Sheba Mcgovern APRN Primary Care Provider: Paresh Morales MD Consult Narrative Reason for consult: Peripheral neuropathy, bilateral feet pain History of present illness: Mr. Ball is a 74 year old male who presents today as a new patient. He is a referral from Dr. Morales's office. Today he rates his pain a 9 out of 10. Patient states his biggest complaint is peripheral neuropathy for both his bilateral feet. He describes it as a constant burning sensation that nothing seems to improve it. He states that he has had this for at least 5 or 6 years and it has progressively worsened. Patient does state in the past he was even seen in our office about 3 years ago and that we did send him to physical therapy and it did help however only for a very temporary basis. He states that he only got less than a week of improvement and then was right back to his baseline. Patient states that he has been to multiple physicians who have done ultrasound and EMG testing on his legs and that it did show a nerve related issue of his low back. He states that then his PCP did order an MRI that had significant findings and he got the referral here. He states he has tried oral medications, heat and ice, topicals, physical therapy and chiropractor with no additional improvement. He has continued to do daily exercise and stretching for longer than 12 weeks with no additional changes. He states he has also been tried on gabapentin, pregabalin and amitriptyline with no changes patient denies any diabetes history. He denies any prior surgery or injection history. His Markos has been reviewed and is appropriate. CC: Sheba Mcgovern APRN [facility] Disclaimer: The information contained in this section may have been updated after the patient was seen, as this information can be updated by other users. Medical History Uses hearing aid Kidney stone SX Sleep apnea History of COVID-19 Hyperlipidemia Hypertension Sinus bradycardia Snoring Edema Surgical History History of appendectomy History of right cataract surgery History of left cataract surgery History of partial knee replacement right History of hernia surgery History of cholecystectomy History of surgery HEART STENT X1 Family History Father Cancer Sister Heart disease Social History Smoking Status: Never smoker second hand exposure: No alcohol intake: current alcohol intake frequency: holidays/special occasions only counseling provided: none substance use type: denies use current occupational status: retired Travel in the last 8 weeks: None household members: other housing: house current occupational exposures/hazards: No caffeine: Yes Review of Systems Review of Systems Review of systems:: pertinent systems reviewed and negative unless documented below Review of systems (narrative): Review of Systems: General: No recent weight changes, no fever, no sleep disturbances Respiratory: No cough, no shortness of air, no recurring pulmonary infections Cardiovascular/peripheral vascular: No chest pain, no palpitations, no edema, no shortness of breath Gastrointestinal: No new onset incontinence, normal bowel movements reported Genitourinary: No new onset incontinence Musculoskeletal: Lower leg pain, bilateral feet burning Psychiatric: [Normal mood/affect] Neurological: [Denies weakness in extremities], [denies balance issues] Meds Home Medications and Allergies Home Medications ?Medication ?Instructions ?Recorded ?Confirmed ?Type allopurinol 300 mg tablet 300 mg PO DAILY Gout 12/28/17 01/11/24 History amlodipine 10 mg tablet 10 mg PO DAILY Hypertension 12/28/17 01/11/24 History atorvastatin 40 mg tablet 40 mg PO DAILY Cholesterol #30 tabs 06/13/19 01/11/24 Rx losartan 100 mg tablet 100 mg PO DAILY blood pressure 10/09/19 01/11/24 History aspirin 81 mg tablet,delayed 81 mg PO DAILY HEART HEALTH 11/10/20 01/11/24 History release (Adult Low Dose Aspirin) amitriptyline 100 mg tablet 50 mg PO DAILY 12/27/23 01/11/24 History ondansetron 4 mg disintegrating 4 mg PO Q8H PRN nausea and 04/16/24 Rx tablet vomiting 4 days #12 tabs New Prescriptions to Start Prescriptions: Allergies Allergy/AdvReac Type Severity Reaction Status Date / Time No Known Allergies Allergy Verified 01/11/24 09:18 Objective Narrative: Physical Exam: General: Alert and oriented x3, no acute distress, pleasant and cooperative Lungs: Respirations even and unlabored, symmetrical chest expansion Eyes: PERRL Musculoskeletal: Flexion and extension of lumbar [spine] somewhat guarded secondary to pain, [antalgic gait noted] positive leg raise Neurological: Speech clear, no gross sensory deficit Additional findings Additional findings: FINDINGS: Multiplanar MR imaging of the lumbar spine was performed without contrast. On the sagittal T2-weighted images, there is abnormal decreased signal throughout the lumbar discs. The vertebrae are of normal height. The vertebral alignment is normal. L1-2: There is no significant canal stenosis or neural foraminal narrowing. L2-3: There is no significant canal stenosis or neural foraminal narrowing. L3-4: Mild diffuse disc bulge. Moderate bilateral neuroforaminal narrowing. L4-5: Moderate diffuse disc bulge. Mild spinal and moderate to high-grade bilateral neuroforaminal narrowing. L5-S1: Mild diffuse disc bulge and moderate facet hypertrophy. Moderate to high-grade bilateral neuroforaminal narrowing. IMPRESSION: Multilevel degenerative disc disease. Reviewed, Interpreted and Dictated by Reid Lr MD Transcribed by Lexie Hermosillo Authenticated and [facility] Assessment and Plan *Assessment and plan (1) Degenerative disc disease: Status: Acute Category: Medical (2) Lumbar radiculopathy: Status: Acute Category: Medical Code(s): M54.16 - Radiculopathy, lumbar region (3) Peripheral neuropathy: Status: Acute Category: Medical Code(s): G62.9 - Polyneuropathy, unspecified Plan I did review with the patient regarding his MRI and significant narrowing at the L4-L5 L5-S1 levels. Patient has tried and failed conservative therapy including oral medications, heat and ice, topicals, at home stretching exercise for longer than 12 weeks. Patient has had physical therapy and chiropractor therapy with no additional changes. I did discuss with the patient that I do believe he would benefit from a lumbar epidural steroid injection at the L4-L5 level. Patient did have positive leg raise. Patient has had testing including ultrasound and EMG that did show a chronic lumbar issue. Patient is not on any blood thinners. I did review over the risk and benefits of this injection and he would like to proceed forward with this plan of care. I will also order the patient a compounded cream. Patient will be scheduled for a LESI L4-L5 under fluoroscopy. Patient has been instructed to contact the clinic with any concerns before the next appointment. Dr. Weiner has reviewed this note and agrees with this plan of care. This note was dictated using voice recognition software and make contain errors or omissions. All injections are used with Lidocaine, Bupivacaine and Depo Medrol. Occasionally urine drug screen is needed to verify patient's compliance with our office pain contract. This is ordered based off specific treatments related to chronic pain with the potential to abuse certain medications.
[2024-10-17 14:03] VITALS: BP 157/70; PULSE 67; RESP 18; O2SAT 95; BMI 35.9
== END 2024-10-17 23:59 | disposition home or self-care (01) ==
LOC: SC.PAIN 12:49
PROVIDERS: PCP Family Medicine; Visit Provider Nurse Practitioner Family
DX: M51.16 Intervertebral disc disorders with radiculopathy, lumbar region (principal); G62.9 Polyneuropathy, unspecified
CPT/HCPCS: 99202; G0463

== ENCOUNTER 2024-11-05 08:20 | Day surgery (SDC) | payer MEDICARE, OTHER, SELFPAY ==
[2024-11-05 08:26] VITALS: BP 165/71; PULSE 57; RESP 16; TEMP 36.8; O2SAT 98; BMI 35.9
--- NOTE | 2024-11-05 09:04 | EXP.PAIN.PRO ---
Procedure Date: 11/05/24 Time: 09:00 Anesthesiologist:: Reji Muñoz CRNA Complications:: None Pre-procedure Diagnosis:: Degenerative disc lumbar spine multilevels. Lumbar radiculopathy. Post-procedure Diagnosis:: Same Indications for Procedure:: Patient is a very pleasant 74-year-old male who comes our clinic today for lumbar epidural steroid injection at L4-5 level. Patient describes low lumbar back pain as constant, dull, aching. Patient also reports bilateral hip and leg radicular symptoms. He rates his pain 7/10. Procedure Details:: Procedure: Lumbar epidural steroid injection under fluoroscopy Informed consent was obtained and the risks and benefits of the procedure were explained to the patient. The patient was taken to the procedure room and noninvasive monitors placed, including noninvasive blood pressure cuff and pulse oximeter. The back was viewed using C-arm Fluoroscopy and prepped using Chloraprep as a cleansing solution and the L4-L5 interspace was palpated. Skin and subcutaneous tissues were anesthetized using lidocaine 1.5% and a 25-gauge needle. After this, an 18-gauge Touhy epidural needle was placed into the L4-L5 interspace and advanced using fluoroscopic guidance and loss of resistance to air until the epidural space was encountered. After confirmation of needle placement in the epidural space, with dye, a solution containing normal saline, 3 mL and Depo-Medrol 80 mg were incrementally injected into the lumbar epidural space. The patient tolerated the procedure well with no complications. The patient was observed in the Pain Clinic and then discharged home neurologically intact. Plan and Disposition:: Patient was discharged without incident.
[2024-11-05 09:10] VITALS: BP 161/62; PULSE 66; RESP 16; O2SAT 100
[2024-11-05] MEDS: methylPREDNISolone ACETATE 80MG/ML VIAL 80 MG (09:17)
[2024-11-05 09:18] VITALS: BP 174/75; PULSE 66; RESP 18; O2SAT 96
== END 2024-11-05 09:10 | disposition home or self-care (01) ==
PROVIDERS: PCP Family Medicine; Visit Provider Nurse Anesthetist, Certified Registered
DX: M51.16 Intervertebral disc disorders with radiculopathy, lumbar region (principal)
CPT/HCPCS: 62323; J1010

== ENCOUNTER 2024-11-12 21:19 | Emergency (ER) | payer MEDICARE, OTHER, SELFPAY ==
[2024-11-12 22:04] VITALS: BP 163/70; PULSE 80; RESP 22; TEMP 37.2; O2SAT 93; BMI 34.4
--- NOTE | 2024-11-12 22:17 | XR_ITS ---
PROCEDURE INFORMATION: Exam: XR Chest Exam date and time: 11/12/2024 10:11 PM Age: 74 years old Clinical indication: Cough and fever; Additional info: Cough, fever, R lower rib pain TECHNIQUE: Imaging protocol: Radiologic exam of the chest. Views: 2 views. COMPARISON: CR XR CHEST 2V 01/15/2020 7:57 AM FINDINGS: Lungs: Unremarkable. No consolidation. Pleural spaces: Unremarkable. No pleural effusion. No pneumothorax. Heart/Mediastinum: Unremarkable. No cardiomegaly. Bones/joints: Unremarkable. IMPRESSION: No acute findings.
[2024-11-12 22:21] LABS: Basophils # 0.1 K/mm3 (0-0.2); Basophils % 0.4 % (0.1-2.0); Eosinophils # 0.1 K/mm3 (0.0-0.4); Eosinophils % 0.6 % (0.1-12.0); Hematocrit 41.2 % (42.0-52.0); Hemoglobin 14.2 g/dL (14.1-18.0); Lymphocytes # 0.8 K/mm3 (0.7-4.5); Lymphocytes % 6.1 % (10-50); Mean Corpuscular HGB Conc 34.5 g/dL (31.8-35.4); Mean Corpuscular Hemoglobin 31.9 pg (27.0-31.2); Mean Corpuscular Volume 92.6 fl (80-94); Mean Platelet Volume 10.7 fl (7.4-10.4); Monocytes % 8.2 % (1.7-9.3); Neutrophils # 10.5 K/mm3 (1.8-7.8); Neutrophils % 84.4 % (37.0-80.0); Platelet Count 267 K/mm3 (142-424); Red Blood Count 4.45 M/mm3 (4.60-6.20); Red Cell Distribution Width 13.2 % (11.5-17.5); White Blood Count 12.4 K/mm3 (4.8-10.8)
[2024-11-12] MEDS: ACETAMINOPHEN 500MG TAB 1000 MG PO (22:21)
[2024-11-12] MEDS: ONDANSETRON 4MG/2ML VIAL 4 MG IV (22:21)
[2024-11-12] MEDS: KETOROLAC 30MG/ML VIAL 15 MG IV (22:22)
[2024-11-12] MEDS: LACTATED RINGERS 1000ML 1,000 ML 999 ML IV (22:22)
[2024-11-12 22:31] VITALS: BP 158/74; PULSE 82; O2SAT 96
[2024-11-12 22:36] LABS: Coronavirus 19, PCR Not Detected (NotDetected); Influenza A, PCR Not Detected (NotDetected); Influenza B, PCR Not Detected (NotDetected)
--- NOTE | 2024-11-12 22:43 | [facility].EDGENADL ---
Discharge Plan Disposition Patient Disposition: Home, Self-Care Prescriptions Prescriptions: No Action aspirin [Adult Low Dose Aspirin] 81 mg tablet,delayed release (DR/EC) 81 mg PO DAILY atorvastatin 40 mg tablet 40 mg PO DAILY Qty: 30 0RF amitriptyline 100 mg Tablet 50 mg PO DAILY amlodipine 10 MG tablet 10 mg PO DAILY allopurinol 300 MG tablet 300 mg PO DAILY losartan 100 MG tablet 100 mg PO DAILY ondansetron 4 mg tablet,disintegrating 4 mg PO Q8H PRN (Reason: nausea and vomiting) 4 Days Qty: 12 0RF Referrals Follow up/Referrals: Paresh Morales MD [Primary Care Provider] - See instructions Activity Restrictions/Add. Instructions Additional Instructions/Restrictions: Please follow-up with your primary care provider. Please return to the emergency department if you develop any new or worsening symptoms or become concerned for your health. Clinical Impressions Clinical Impression: Cough, Nausea Instructions Patient Instructions: DI for Diarrhea and Traveler's Diarrhea -- Adult, DI for Diarrhea and Traveler's Diarrhea -- Child, DI for Nausea -- Adult, DI for Nausea -- Child Print Language Print Language: Bahamian Discharge ED Provider: Salinas Butler [facility] Adult HPI <Sheba Thomas DO - Last Filed: 11/12/24 22:53> General Chief complaint: Nausea/Vomiting/Diarrhea Stated complaint: Fever,sick at stomach Time Seen by Provider: 11/12/24 21:54 Mode of Arrival: Ambulatory Source of Information: Patient Description of Symptoms (Recalled from ER Triage Doc. by RN): pt reports to the ED with complaints for nausea, fever and a cough that began at 1800. History of Present Illness HPI narrative: This patient is a 74-year-old male with a history of hypertension and hyperlipidemia presenting to the emergency department for evaluation with concern for fever, cough, nausea. Cough started early this morning, but the fever and nausea just developed this evening. No chest pain, abdominal pain, vomiting, changes in bowel movements, or other concerns noted. He does note some right posterior rib pain when he coughs, but is not present at rest. Related Data Home Medications ?Medication ?Instructions ?Recorded ?Confirmed allopurinol 300 mg tablet 300 mg PO DAILY Gout 12/28/17 11/13/24 amlodipine 10 mg tablet 10 mg PO DAILY Hypertension 12/28/17 11/13/24 losartan 100 mg tablet 100 mg PO DAILY blood pressure 10/09/19 11/13/24 aspirin 81 mg tablet,delayed 81 mg PO DAILY [facility] 11/10/20 11/13/24 release (Adult Low Dose Aspirin) amitriptyline 100 mg tablet 50 mg PO DAILY 12/27/23 11/13/24 Previous Rx's ?Medication ?Instructions ?Recorded atorvastatin 40 mg tablet 40 mg PO DAILY Cholesterol #30 tabs 06/13/19 ondansetron 4 mg disintegrating 4 mg PO Q8H PRN nausea and 04/16/24 tablet vomiting 4 days #12 tabs Allergies Allergy/AdvReac Type Severity Reaction Status Date / Time No Known Allergies Allergy Verified 01/11/24 09:18 [facility] <Sheba Thomas DO - Last Filed: 11/12/24 22:53> [facility] Disclaimer: The information contained in this section may have been updated after the patient was seen, as this information can be updated by other users. Medical History Uses hearing aid Kidney stone Sleep apnea History of COVID-19 Hyperlipidemia Hypertension Sinus bradycardia Snoring Edema Surgical History History of appendectomy History of right cataract surgery History of left cataract surgery History of partial knee replacement History of hernia surgery History of cholecystectomy History of surgery Family History Father Cancer Sister Heart disease Social History Smoking Status: Never smoker second hand exposure: No alcohol intake: current alcohol intake frequency: holidays/special occasions only counseling provided: none substance use type: denies use current occupational status: retired Travel in the last 8 weeks: None household members: other housing: house current occupational exposures/hazards: No caffeine: Yes Have you lived/traveled outside [place] in past 30 days?: No Contact w/someone who lives/traveled outside US past 30 days?: No Exposure to someone with infectious disease in past 14 days?: No Do you have a fever (greater than 100.4 F or 38 C)?: Yes Have you tested positive for COVID-19: No Exposed to someone with COVID-19 in past 14 days?: No Do you have a sore throat?: No Do you have a cough?: No Do you have any weakness?: No Do you have any diarrhea?: No Are you experiencing any unusual bleeding?: No Do you have any muscle aches/pain?: No Do you have any abdominal pain?: Yes Are you experiencing loss of taste or smell?: No Other Medical History Have you received the Flu Vaccine for this season: No Have you received the Pneumonia Vaccine: No <Sheba Thomas DO - Last Filed: 11/12/24 22:53> ROS Obtained: Yes All systems reviewed & no additional complaints except as documented Physical Exam <Sheba Thomas DO - Last Filed: 11/12/24 22:53> General General appearance: alert and in no apparent distress Head Head exam: atraumatic and normocephalic Eye Eye exam: Present normal appearance, PERRL and EOMI ENT ENT exam: Present normal exam, normal oropharynx, mucous membranes moist and normal external ear exam Neck Neck exam: Present normal inspection, full ROM and trachea midline; Absent tenderness Chest Chest inspection: Present normal inspection and symmetric chest wall rise; Absent tenderness Respiratory Respiratory exam: Present normal lung sounds bilaterally; Absent respiratory distress, wheezes, stridor or accessory muscle use Cardiovascular Cardiovascular exam: Present regular rate and normal rhythm Abdominal Exam Abdominal exam: Present soft; Absent distention, tenderness or guarding Extremities Exam Extremities exam: Present normal inspection, full ROM and normal capillary refill; Absent tenderness or edema Back Exam Back exam: Present normal inspection and full ROM; Absent tenderness Neurological Exam Neurological exam: Present alert, oriented X3, CN II-XII intact and normal gait; Absent motor sensory deficit Psychiatric Psychiatric exam: Present normal affect and normal mood Skin Skin exam: Present warm and dry Medical Decision Making <Sheba Thomas DO - Last Filed: 11/12/24 22:53> Medical Records Medical records reviewed: Yes I reviewed the patient's medical records. Screening: Per USPSTF and CDC recommendations, given the prevalence of disease in our region, it is our hospital?s policy to screen for HIV and viral Hepatitis for all patients aged 18 and over and those with ongoing risk factors. Markos Inquiry Pt receiving controlled substance: No Vital Signs: 11/12/24 22:04 11/12/24 22:31 11/12/24 23:01 Temperature 98.9 F Temperature Source Oral Pulse Rate 82 77 Pulse Rate [Right] 80 Respiratory Rate 22 Blood Pressure 158/74 H 152/62 H Blood Pressure [Right Arm] 163/70 H Blood Pressure Mean 102 92 Blood Pressure Mean [Right Arm] 101 02 Sat by Pulse Oximetry 93 L 96 93 L Oxygen Delivery Method Room Air 11/12/24 23:31 11/13/24 00:00 11/13/24 00:31 Temperature Temperature Source Pulse Rate 74 69 77 Pulse Rate [Right] Respiratory Rate Blood Pressure 130/62 133/61 122/61 Blood Pressure [Right Arm] Blood Pressure Mean 84 85 82 Blood Pressure Mean [Right Arm] 02 Sat by Pulse Oximetry 94 L 94 L 94 L Oxygen Delivery Method 11/13/24 01:00 Temperature 98.7 F Temperature Source Pulse Rate 73 Pulse Rate [Right] Respiratory Rate 20 Blood Pressure 122/61 Blood Pressure [Right Arm] Blood Pressure Mean Blood Pressure Mean [Right Arm] 02 Sat by Pulse Oximetry Oxygen Delivery Method Room Air Lab Data Lab results reviewed: Yes I reviewed the patient's lab results. Lab Results 11/12/24 22:14: WBC 12.4 H, RBC 4.45 L, Hgb 14.2, Hct 41.2 L, MCV 92.6, MCH 31.9 H, MCHC 34.5, RDW 13.2, Plt Count 267, MPV 10.7 H, Neut % (Auto) 84.4 H, Lymph % (Auto) 6.1 L, [place] % (Auto) 8.2, Eos % (Auto) 0.6, Baso % (Auto) 0.4, Neut # (Auto) 10.5 H, Lymph # (Auto) 0.8, [place] # (Auto) 1.0, Eos # (Auto) 0.1, Baso # (Auto) 0.1, Sodium 137, Potassium 4.3, Chloride 102, Carbon Dioxide 25, Anion Gap 14.3, BUN 23 H, Creatinine 1.00, Estimated Creat Clear 97, Estimated GFR 73, Est GFR ( Amer) 88, Glucose 127 H, Calcium 9.3, Total Bilirubin 0.6, AST 50, ALT 66, Alkaline Phosphatase 71, Total Protein 6.9, Albumin 4.8, Globulin 2.1, Albumin/Globulin Ratio 2.3 H, Lipase 95, HCV Ab CHRISTIAN w/Rflx PCR Qn Negative, HIV Ag/Ab Combo Qual Negative 11/12/24 22:31: SARS-CoV-2 (PCR) Not detected, Influenza A Untype (PCR) Not detected, Influenza Type B (PCR) Not detected 11/13/24 00:24: Urine Color Yellow, Urine Appearance Clear, Urine pH 7.0, Ur Specific [place] 1.020, Urine Protein Negative, Urine Glucose (UA) Negative, Urine Ketones Negative, Urine Blood Negative, Urine Nitrate Negative, Urine Bilirubin Negative, Urine Urobilinogen 1.0, Ur Leukocyte Esterase Negative, Urine RBC None, Urine WBC None, Ur Squamous Epith Cells None, Urine Bacteria None 11/12/24 22:14 11/12/24 22:14 Orders (Tests/Meds): ED MEDICATIONS Discontinued Medications Generic Name Dose Route Start Last Admin Trade Name Freq PRN Reason Stop Dose Admin Acetaminophen 1,000 mg 11/12/24 22:18 11/12/24 22:21 Acetaminophen 500mg Tab PO 11/12/24 22:19 1,000 mg ONCE ONE Administration Lactated Ringer's 1,000 mls @ 999 mls/hr 11/12/24 22:18 11/12/24 22:22 Lactated Ringer's 1000 Ml Bag IV 11/12/24 23:18 999 mls/hr .Q1H1M ONE Administration Ketorolac Tromethamine 15 mg 11/12/24 22:18 11/12/24 22:22 Ketorolac 30mg/Ml Vial IV 11/12/24 22:19 15 mg ONCE ONE Administration Ondansetron HCl 4 mg 11/12/24 22:18 11/12/24 22:21 Ondansetron 4mg/2ml Vial IV 11/12/24 22:19 4 mg ONCE ONE Administration Ondansetron HCl 4 mg 11/13/24 00:35 11/13/24 00:36 Ondansetron 4mg/2ml Vial IV 11/13/24 00:36 4 mg ONCE ONE Administration ORDERS Category Date Time Status CXR 2 view (NOT portable) [XR chest 2V] Stat Exams 11/12/24 22:17 Completed Complete Blood Count Auto Diff Stat Lab 11/12/24 22:14 Completed Comprehensive Metabolic Panel Stat Lab 11/12/24 22:14 Completed HIV Combo Stat Lab 11/12/24 22:14 Completed Hepatitis C Ab Qual. W/ RFX Stat Lab 11/12/24 22:14 Completed Lipase Stat Lab 11/12/24 22:14 Completed Rapid PCR Covid and Flu A/B Stat Lab 11/12/24 22:31 Completed UA [Urinalysis and Microscopic] Stat Lab 11/13/24 00:24 Completed Medical Decision Narrative: In summary, this patient is a 74-year-old male presenting to the Emergency Department for evaluation of fever, cough, nausea. Differential diagnoses considered include but are not limited to viral syndrome, pneumonia, gastroenteritis. Ruling out the most morbid conditions drove assessment. It should be noted patient's history includes hypertension, hyperlipidemia which may or may not be at goal therapy. This complicates all aspects of care by increasing patient's risk for morbidity. I reviewed patient's past medical records and noted pain management evaluations for degenerative disc disease. On exam, the patient is very well-appearing. He is nontoxic, afebrile with reassuring vitals on cardiac telemetry. Cardiopulmonary and abdominal exams are benign. I feel he likely has a viral syndrome as a cause of his symptoms, but to be on the safe side given age and risk factors will obtain basic lab evaluation including CBC, CMP, lipase, as well as a chest x-ray. Patient was given a bolus of IV fluids as well as IV Toradol, oral Tylenol, IV Zofran for symptomatic improvement. Patient care signed out to the oncoming provider, Dr. Butler, pending workup and disposition. <Salinas Butler MD - Last Filed: 11/13/24 02:21> Vital Signs: 11/12/24 22:04 11/12/24 22:31 11/12/24 23:01 Temperature 98.9 F Temperature Source Oral Pulse Rate 82 77 Pulse Rate [Right] 80 Respiratory Rate 22 Blood Pressure 158/74 H 152/62 H Blood Pressure [Right Arm] 163/70 H Blood Pressure Mean 102 92 Blood Pressure Mean [Right Arm] 101 02 Sat by Pulse Oximetry 93 L 96 93 L Oxygen Delivery Method Room Air 11/12/24 23:31 11/13/24 00:00 11/13/24 00:31 Temperature Temperature Source Pulse Rate 74 69 77 Pulse Rate [Right] Respiratory Rate Blood Pressure 130/62 133/61 122/61 Blood Pressure [Right Arm] Blood Pressure Mean 84 85 82 Blood Pressure Mean [Right Arm] 02 Sat by Pulse Oximetry 94 L 94 L 94 L Oxygen Delivery Method 11/13/24 01:00 Temperature 98.7 F Temperature Source Pulse Rate 73 Pulse Rate [Right] Respiratory Rate 20 Blood Pressure 122/61 Blood Pressure [Right Arm] Blood Pressure Mean Blood Pressure Mean [Right Arm] 02 Sat by Pulse Oximetry Oxygen Delivery Method Room Air Lab Data Lab Results 11/12/24 22:14: WBC 12.4 H, RBC 4.45 L, Hgb 14.2, Hct 41.2 L, MCV 92.6, MCH 31.9 H, MCHC 34.5, RDW 13.2, Plt Count 267, MPV 10.7 H, Neut % (Auto) 84.4 H, Lymph % (Auto) 6.1 L, [place] % (Auto) 8.2, Eos % (Auto) 0.6, Baso % (Auto) 0.4, Neut # (Auto) 10.5 H, Lymph # (Auto) 0.8, [place] # (Auto) 1.0, Eos # (Auto) 0.1, Baso # (Auto) 0.1, Sodium 137, Potassium 4.3, Chloride 102, Carbon Dioxide 25, Anion Gap 14.3, BUN 23 H, Creatinine 1.00, Estimated Creat Clear 97, Estimated GFR 73, Est GFR ( Amer) 88, Glucose 127 H, Calcium 9.3, Total Bilirubin 0.6, AST 50, ALT 66, Alkaline Phosphatase 71, Total Protein 6.9, Albumin 4.8, Globulin 2.1, Albumin/Globulin Ratio 2.3 H, Lipase 95, HCV Ab CHRISTIAN w/Rflx PCR Qn Negative, HIV Ag/Ab Combo Qual Negative 11/12/24 22:31: SARS-CoV-2 (PCR) Not detected, Influenza A Untype (PCR) Not detected, Influenza Type B (PCR) Not detected 11/13/24 00:24: Urine Color Yellow, Urine Appearance Clear, Urine pH 7.0, Ur Specific [place] 1.020, Urine Protein Negative, Urine Glucose (UA) Negative, Urine Ketones Negative, Urine Blood Negative, Urine Nitrate Negative, Urine Bilirubin Negative, Urine Urobilinogen 1.0, Ur Leukocyte Esterase Negative, Urine RBC None, Urine WBC None, Ur Squamous Epith Cells None, Urine Bacteria None Orders (Tests/Meds): ED MEDICATIONS Discontinued Medications Generic Name Dose Route Start Last Admin Trade Name [place] PRN Reason Stop Dose Admin Acetaminophen 1,000 mg 11/12/24 22:18 11/12/24 22:21 Acetaminophen 500mg Tab PO 11/12/24 22:19 1,000 mg ONCE ONE Administration Lactated Ringer's 1,000 mls @ 999 mls/hr 11/12/24 22:18 11/12/24 22:22 Lactated Ringer's 1000 Ml Bag IV 11/12/24 23:18 999 mls/hr .Q1H1M ONE Administration Ketorolac Tromethamine 15 mg 11/12/24 22:18 11/12/24 22:22 Ketorolac 30mg/Ml Vial IV 11/12/24 22:19 15 mg ONCE ONE Administration Ondansetron HCl 4 mg 11/12/24 22:18 11/12/24 22:21 Ondansetron 4mg/2ml Vial IV 11/12/24 22:19 4 mg ONCE ONE Administration Ondansetron HCl 4 mg 11/13/24 00:35 11/13/24 00:36 Ondansetron 4mg/2ml Vial IV 11/13/24 00:36 4 mg ONCE ONE Administration ORDERS Category Date Time Status CXR 2 view (NOT portable) [XR chest 2V] Stat Exams 11/12/24 22:17 Completed Complete Blood Count Auto Diff Stat Lab 11/12/24 22:14 Completed Comprehensive Metabolic Panel Stat Lab 11/12/24 22:14 Completed HIV Combo Stat Lab 11/12/24 22:14 Completed Hepatitis C Ab Qual. W/ RFX Stat Lab 11/12/24 22:14 Completed Lipase Stat Lab 11/12/24 22:14 Completed Rapid PCR Covid and Flu A/B Stat Lab 11/12/24 22:31 Completed UA [Urinalysis and Microscopic] Stat Lab 11/13/24 00:24 Completed Medical Decision Narrative: In summary, this patient is a 74-year-old male presenting to the Emergency Department for evaluation of fever, cough, nausea. Differential diagnoses considered include but are not limited to viral syndrome, pneumonia, gastroenteritis. Ruling out the most morbid conditions drove assessment. It should be noted patient's history includes hypertension, hyperlipidemia which may or may not be at goal therapy. This complicates all aspects of care by increasing patient's risk for morbidity. I reviewed patient's past medical records and noted pain management evaluations for degenerative disc disease. On exam, the patient is very well-appearing. He is nontoxic, afebrile with reassuring vitals on cardiac telemetry. Cardiopulmonary and abdominal exams are benign. I feel he likely has a viral syndrome as a cause of his symptoms, but to be on the safe side given age and risk factors will obtain basic lab evaluation including CBC, CMP, lipase, as well as a chest x-ray. Patient was given a bolus of IV fluids as well as IV Toradol, oral Tylenol, IV Zofran for symptomatic improvement. Patient care signed out to the oncoming provider, Dr. Butler, pending workup and disposition. Luke LEVIN: I assumed care of the patient at the time of handoff from the prior provider. On reassessment patient reports symptomatic improvement. No evidence of bacterial pneumonia on my independent interpretation of chest x-ray. Labs results interpreted by me and show mild leukocytosis, otherwise no significant findings. Interactive discussion was had with patient regarding his presentation. No evidence of bacterial pathology at this time. May be viral in nature. Patient discharged in stable condition with return precautions. Critical Care <Sheba Thomas, DO - Last Filed: 11/12/24 22:53> Critical Care Time Critical Care Time: No
[2024-11-12 22:52] LABS: Albumin Level 4.8 g/dl (3.5-5.0); Chloride 102 mmol/L (98-107); Potassium 4.3 mmoL/L (3.5-5.1); Sodium 137 mmol/L (136-145)
[2024-11-12 22:55] LABS: Alanine Aminotransferase 66 U/L (12-78); Albumin/Globulin Ratio 2.3 (1.1-1.8); Alkaline Phosphatase 71 U/L (38-126); Anion Gap 14.3 mEq/L (5-15); Aspartate Amino Transferase 50 U/L (17-59); Bilirubin,Total 0.6 mg/dl (0.2-1.3); Blood Urea Nitrogen 23 mg/dl (9-20); Calcium 9.3 mg/dl (8.4-10.2); Carbon Dioxide 25 mmol/L (22.0-30.0); Creatinine Clearance Estimated 97 mL/min (50-200); Estimated Glomerular Filt Rate 73 ml/min (>60); GFR (African American) 88 ML/MIN (>60); Globulin 2.1 g/dL (1.3-3.2); Glucose 127 mg/dl (74-100); Lipase 95 U/L (23-300); Total Protein,Serum 6.9 g/dl (6.3-8.2)
[2024-11-12 23:01] VITALS: BP 152/62; PULSE 77; O2SAT 93
[2024-11-12 23:31] VITALS: BP 130/62; PULSE 74; O2SAT 94
[2024-11-12 23:52] LABS: HIV Combo NEGATIVE (Negative)
[2024-11-13] VITALS: BP 133/61; PULSE 69; O2SAT 94
[2024-11-13 00:01] LABS: Hepatitis C Ab Qual. W/ RFX NEGATIVE (Negative)
[2024-11-13 00:28] LABS: Microscopic, Urine URINE MICROSCOPIC (MICROSCOPIC)
--- NOTE | 2024-11-13 00:29 | PC.NURSE ---
spoke with pt and family at bedside, informed patient of ER situation and delay in urine collection. pt understood and no new compliants voiced at this time
[2024-11-13 00:31] VITALS: BP 122/61; PULSE 77; O2SAT 94
[2024-11-13] MEDS: ONDANSETRON 4MG/2ML VIAL 4 MG IV (00:36)
[2024-11-13 00:49] LABS: Appearance,Urine CLEAR (Clear); Bilirubin,Urine Negative (Negative); Blood, Urine Negative (Negative); Color,Urine YELLOW (Yellow); Glucose,Urine (UA) Negative (Negative); Ketones,Urine Negative (Negative); Leukocyte Esterase,Urine Negative (Negative); Nitrate,Urine Negative (Negative); Protein,Urine Negative (Negative)
[2024-11-13 01:00] VITALS: BP 122/61; PULSE 73; RESP 20; TEMP 37.1; O2SAT 93
== END 2024-11-13 01:08 | disposition home or self-care (01) ==
PROVIDERS: Emergency Medicine; Emergency Provider Emergency Medicine; PCP Family Medicine
DX: R50.9 Fever, unspecified (principal); R05.9 Cough, unspecified; R11.0 Nausea
CPT/HCPCS: 71046; 80053; 81001; 83690; 85025; 86803; 87389; 87636; 96361; 96374; 96375; 99283; J1885; J2405; J7120

== ENCOUNTER 2024-11-18 10:29 | Outpatient (POV) | payer MEDICARE, OTHER, SELFPAY ==
--- NOTE | 2024-11-18 10:37 | EXP.PAIN.SOA ---
[facility] Disclaimer: The information contained in this section may have been updated after the patient was seen, as this information can be updated by other users. Medical History Uses hearing aid Kidney stone Sleep apnea History of COVID-19 Hyperlipidemia Hypertension Sinus bradycardia Snoring Edema Surgical History History of appendectomy History of right cataract surgery History of left cataract surgery History of partial knee replacement History of hernia surgery History of cholecystectomy History of surgery Family History Father Cancer Sister Heart disease Social History Smoking Status: Never smoker second hand exposure: No alcohol intake: current alcohol intake frequency: holidays/special occasions only counseling provided: none substance use type: denies use current occupational status: other Travel in the last 8 weeks: None household members: other housing: house current occupational exposures/hazards: No caffeine: Yes PM Subjective & Objective Subjective Subjective:: Patient is a pleasant 74-year-old male who presents today for follow-up of lumbar epidural steroid injection L4-L5 on 11/05/2024. Today he rates his pain a 5 out of 10. He denies any new trauma or injury. He states that as far as the symptoms of his peripheral neuropathy he is writing at least 25 to 30% improvement with this injection. He states that he did notice a change the very next day. He does state that he is also still seeing a Dr. Argueta [facility] for the left foot. He states that he tore some type of ligament and they are doing a wrap every Monday to improve healing and that he does present today with a boot on. He does state that he was under the weather at the beginning of November. And ultimately ended up getting diagnosed with the flu. He states all of this has resolved except the cough. he denies any other changes. At our last visit we did order the patient a compounded cream. He states that this does seem to help however he typically does not take his shoes off except for in the mornings or at bedtime. Patient does state that the pain is all along the soles of his feet and the top of his feet and following the injection he did feel like it went into his big toe bilaterally. His Markos has been reviewed. Review of Systems: General: No recent weight changes, no fever, no sleep disturbances Respiratory: No cough, no shortness of air, no recurring pulmonary infections Cardiovascular/peripheral vascular: No chest pain, no palpitations, no edema, no shortness of breath Gastrointestinal: No new onset incontinence, normal bowel movements reported Genitourinary: No new onset incontinence Musculoskeletal: Bilateral feet pain Psychiatric: [Normal mood/affect] Neurological: [Denies weakness in extremities], [denies balance issues] Pain at rest (0-10 scale): 5 Objective Objective:: Physical Exam: General: Alert and oriented x3, no acute distress, pleasant and cooperative Lungs: Respirations even and unlabored, symmetrical chest expansion Eyes: PERRL Musculoskeletal: Flexion and extension of bilateral ankles somewhat guarded Neurological: Speech clear, no gross sensory deficit Has patient had previous pain injection?: Yes Percent improvement in pain since last injection: 30% Conservative treatment options previously tried: Home exercise plan Length of treatment: Longer than 12 weeks Meds Home Medications and Allergies Home Medications ?Medication ?Instructions ?Recorded ?Confirmed ?Type allopurinol 300 mg tablet 300 mg PO DAILY Gout 12/28/17 11/13/24 History amlodipine 10 mg tablet 10 mg PO DAILY Hypertension 12/28/17 11/13/24 History atorvastatin 40 mg tablet 40 mg PO DAILY Cholesterol #30 tabs 06/13/19 11/13/24 Rx losartan 100 mg tablet 100 mg PO DAILY blood pressure 10/09/19 11/13/24 History aspirin 81 mg tablet,delayed 81 mg PO DAILY HEART HEALTH 11/10/20 11/13/24 History release (Adult Low Dose Aspirin) amitriptyline 100 mg tablet 50 mg PO DAILY 12/27/23 11/13/24 History ondansetron 4 mg disintegrating 4 mg PO Q8H PRN nausea and 04/16/24 11/13/24 Rx tablet vomiting 4 days #12 tabs New Prescriptions to Start Prescriptions: Allergies Allergy/AdvReac Type Severity Reaction Status Date / Time No Known Allergies Allergy Verified 01/11/24 09:18 Assessment and Plan *Assessment and plan (1) Lumbar radiculopathy: Status: Acute Category: Medical Code(s): M54.16 - Radiculopathy, lumbar region (2) Degenerative disc disease: Status: Acute Category: Medical Plan I did discuss at length with the patient regarding even trying some nerve blocks for the peripheral neuropathy. We have recommended to continue to use the compounded cream. I did also review over his pain in his big toes bilaterally and he denied any swelling or erythema. We did discuss the possibility of gout and he states that he has had this in the past and is on medication for this. We will follow-up with him in 1 month. Patient has been instructed to contact the clinic with any concerns before the next appointment. Dr. Weiner has reviewed this note and agrees with this plan of care. This note was dictated using voice recognition software and make contain errors or omissions. All injections are used with Lidocaine, Bupivacaine and Depo Medrol. Occasionally urine drug screen is needed to verify patient's compliance with our office pain contract. This is ordered based off specific treatments related to chronic pain with the potential to abuse certain medications.
[2024-11-18 10:41] VITALS: BP 144/74; BP 155/69; PULSE 59; RESP 16; O2SAT 96; BMI 35.9
== END 2024-11-18 23:59 | disposition home or self-care (01) ==
LOC: SC.PAIN 10:31
PROVIDERS: PCP Family Medicine; Visit Provider Nurse Practitioner Family
DX: M51.16 Intervertebral disc disorders with radiculopathy, lumbar region (principal)
CPT/HCPCS: 99212; G0463

== ENCOUNTER 2024-12-18 10:01 | Outpatient (POV) | payer MEDICARE, OTHER, SELFPAY ==
--- NOTE | 2024-12-18 10:07 | A.OFFVIS_ITS ---
[facility] Disclaimer: The information contained in this section may have been updated after the patient was seen, as this information can be updated by other users. Medical History Uses hearing aid Kidney stone Sleep apnea History of COVID-19 Hyperlipidemia Hypertension Sinus bradycardia Snoring Edema Surgical History History of appendectomy History of right cataract surgery History of left cataract surgery History of partial knee replacement History of hernia surgery History of cholecystectomy History of surgery Family History Father Cancer Sister Heart disease Social History Smoking Status: Never smoker second hand exposure: No alcohol intake: current alcohol intake frequency: holidays/special occasions only counseling provided: none substance use type: denies use current occupational status: other Travel in the last 8 weeks: None household members: other housing: house current occupational exposures/hazards: No caffeine: Yes PM Subjective & Objective Subjective Subjective:: Patient is a pleasant 74-year-old male who presents today for 1 month follow-up. Today he rates his pain a 2 out of 10. He does state from our last visit that he actually felt like the injection just took time to kick in and that it did really start to improve his overall symptoms. He states from our last visit that he ended up feeling much better and was doing really well and not really hurting up until the recent rain that we had this past week. He states it was a little bit worse during that time however it has eased back down. Patient does question whether or not if a lot of his symptoms is more arthritis. Patient does state that the compounded cream we have prescribed does seem like it really helps. He states today that he is having some numbness in his toes and that he has not been as consistent with the cream due to just forgetting to apply it. Patient does state that he did not end up going back to the doctor at our last visit to see if it was a gout flareup that was causing some of his worsening pain in his big toes. Patient is on medication to keep his uric acid levels down for history of chronic gout. He denies any other changes.He is prescribed compounded cream from our office. His Markos has been reviewed and is appropriate. Review of Systems: General: No recent weight changes, no fever, no sleep disturbances Respiratory: No cough, no shortness of air, no recurring pulmonary infections Cardiovascular/peripheral vascular: No chest pain, no palpitations, no edema, no shortness of breath Gastrointestinal: No new onset incontinence, normal bowel movements reported Genitourinary: No new onset incontinence Musculoskeletal: Low back pain, toe numbness Psychiatric: [Normal mood/affect] Neurological: [Denies weakness in extremities], [denies balance issues] Pain at rest (0-10 scale): 2 Objective Objective:: Physical Exam: General: Alert and oriented x3, no acute distress, pleasant and cooperative Lungs: Respirations even and unlabored, symmetrical chest expansion Eyes: PERRL Musculoskeletal: Flexion and extension of lumbar [spine] within normal limits Neurological: Speech clear, no gross sensory deficit Has patient had previous pain injection?: No Conservative treatment options previously tried: Home exercise plan Length of treatment: Longer than 12 weeks Meds Home Medications and Allergies Home Medications ?Medication ?Instructions ?Recorded ?Confirmed ?Type allopurinol 300 mg tablet 300 mg PO DAILY Gout 12/28/17 12/18/24 History amlodipine 10 mg tablet 10 mg PO DAILY Hypertension 12/28/17 12/18/24 History atorvastatin 40 mg tablet 40 mg PO DAILY Cholesterol #30 tabs 06/13/19 12/18/24 Rx losartan 100 mg tablet 100 mg PO DAILY blood pressure 10/09/19 12/18/24 History aspirin 81 mg tablet,delayed 81 mg PO DAILY HEART HEALTH 11/10/20 12/18/24 History release (Adult Low Dose Aspirin) amitriptyline 100 mg tablet 50 mg PO DAILY 12/27/23 12/18/24 History ondansetron 4 mg disintegrating 4 mg PO Q8H PRN nausea and 04/16/24 12/18/24 Rx tablet vomiting 4 days #12 tabs New Prescriptions to Start Prescriptions: Allergies Allergy/AdvReac Type Severity Reaction Status Date / Time No Known Allergies Allergy Verified 01/11/24 09:18 Assessment and Plan *Assessment and plan (1) Lumbar radiculopathy: Status: Acute Category: Medical Code(s): M54.16 - Radiculopathy, lumbar region (2) Degenerative disc disease: Status: Acute Category: Medical Plan Patient did have a longer delay for the last lumbar epidural of L4-L5 on to kick in. He does now state that he feels like it really did make a big difference in his overall pain. Patient is overall doing well and does not require any additional injection therapy at this time. I did counseling center director the patient that it may be very beneficial to consistently use the compounded cream. Patient does continue to have a boot on his foot. He states he is seeing that provider on Monday and is hoping that this will be able to come off. Patient will return to clinic in 3 months for reevaluation of symptoms and plan of care. Patient has been instructed to contact the clinic with any concerns before the next appointment. Dr. Weiner has reviewed this note and agrees with this plan of care. This note was dictated using voice recognition software and make contain errors or omissions. All injections are used with Lidocaine, Bupivacaine and Depo Medrol. Occasionally urine drug screen is needed to verify patient's compliance with our office pain contract. This is ordered based off specific treatments related to chronic pain with the potential to abuse certain medications.
[2024-12-18 10:17] VITALS: BP 170/64; PULSE 57; RESP 18; O2SAT 97; BMI 35.9
== END 2024-12-18 23:59 | disposition home or self-care (01) ==
LOC: SC.PAIN 10:05
PROVIDERS: PCP Family Medicine; Visit Provider Nurse Practitioner Family
DX: M54.16 Radiculopathy, lumbar region (principal)
CPT/HCPCS: 99212; G0463

== ENCOUNTER 2025-01-07 12:34 | Outpatient (RCR) | payer MEDICARE, OTHER, SELFPAY | END 2025-01-07 23:59 | disposition home or self-care (01) | LOC: PT 12:34 | PROVIDERS: PCP Family Medicine; Visit Provider Podiatrist Foot & Ankle Surgery | DX: M72.2 Plantar fascial fibromatosis (principal); S93.692A Other sprain of left foot, initial encounter | CPT/HCPCS: 97110; 97163 ==

== ENCOUNTER 2025-03-17 09:07 | Outpatient (POV) | payer MEDICARE, OTHER, SELFPAY ==
--- OUTSIDE RECORDS SUMMARY | 2024-11-14 06:15 | XMS_ITS ---
[address] [place] [id number] Email Address Preferred Language en Marital Status Methodist Affiliation Unknown Race White Ethnic Group Not or Lati no Author Organization [facility] Address [address] [facility] [address] [place] [phone] Care Team Providers Care Cage Manager Name Role Phone Paresh Morales Primary Care Provider [phone] Allergies No Known Allergies Results Component Value [...] day; Duration: 30 day(s) Active Vital Signs Blood pressure systolic 126 mm Hg 11/15/19 25 Blood pressure diastolic 70 mm Hg 025 Heart Rate 88 /min 11/14/2024 Height 69.75 in 11/14/2024 Weight 253 lbs 11/14/2024 BMI 36.56 kg/m2 11/14/2024 Encounters Encounter Location Date Provider Diagnosis [facility] [address] [place], [place] [id number] 11/14/2024 Paresh Morales Influenza A J 10.1 [...] Up: prn, Reason: Provider Name:Paresh Zayas ry, 03/19/2025 09:00:00 AM, [address], [address], [place], [phone], Progress Notes * MARISA LEMUS GDOB:1950 (74 yo M)Acc No.[id number]:11/14/2024 Progress Notes Patient: Rosa KISER MARISA Cummins Provider: Dona Hart:1950 A ge:74 Y S ex:Male Date:11/14/2024 Address:[address], [place], [id number] Subjective: * Chief Complaints: * 1 . F/U from ER no better. * HPI: H PI: 74 year old male presents with c/o Here for follow up on: 0 11/12/2024 [facility] er visit. Pt was seen for cough [...] Diagno stic Procedure: H yperkalemia, Leucocytosis, Lightheaded- [facility] 02/08-02/09/2018, Fractured Finger- [facility] ER 10/20/2018. * Family History: F ather: [...] G 2211 Complex e/[place], [address] [place], [address] Flu Test- Nasal Swab, Modifiers: QW , 3074F SYST BP LT 130 MM HG, 3078F DIAST BP < 80 MM HG * Follow Up: p rn * Images: Billing Information: * Visit Code: 65878 Office Visit, Est Pt., Level 3. * Procedure Codes: G2211 Complex e/[place] [address] [place] [address] Flu Test- Nasal Swab. Modifiers: QW 3074F SYST BP LT 130 MM HG. 3078F DIAST BP < 80 MM HG. * Electronic signature of Nieves Morales MD on 03/17/2025 at 09:12 AM EDT Sign off status: Pending * Provider: Deepak Morales M.D. Date: 0 11/14/2024 Generated for Janet messer/Kuldeep/Giftysmitting on: 0 03/17/2025 09:12 AM EDT History and Physical Notes * HPI (History of Present Illness) Category Sub-Category Detail Notes Category Not es HPI Here for follow up on: 5 [facility] er visit. Pt was seen for cough [...]
--- OUTSIDE RECORDS SUMMARY | 2025-03-17 09:13 | XMS_ITS | Data Portability ---
Author Organization [facility] & [place], [facility] ADMIN Address [address] [place] [id number] Care Team Providers Care Administrator Social Welfare Name Role Phone ANG MORALES Primary Care Provider Assessment No assessment recorded. Plan of Treatment Reminders Order Date Submit Date Provider Last Modified By Organization Details Last Modified Time Details Appointments None recorded. Lab None recorded. Referral None recorded. Procedures nerve conduction study/EMG, lower extremity (PROC) 2023 024 [email or web address] Not available 15:00:39 Surgeries None recorded. Imaging None recorded. Medication Orders None recorded. Patient TargetsNo targets recorded. Patient InstructionsNo instructions recorded. Reason for Referral None Reported. Results Created Date Observation Date Name Description Value Unit Range Abnormal Flag Note LastModifiedBy Organization Detail LastModifiedTime 03/13/20 24 03/23/2023 nerve condu ction study /EMG, upper extre mity (PROC ) No observ ation record ed. [id number] [facility] (Med Record) [address], [place], [address], 03/15/2024 09:08:01 Result Notes None recorded. Problems Name Problem SNOMED Code Status Onset Date Resolution Date Notes Provider Name and Address Organization Details Recorded Time Neuropathy 628548109 Active 2023 Oly muñiz [facility] & [place] 4 09:14:26 Paresthesia of lower extremity 676343644 Active 2023 Comfort Castro, [address], [place], [address] , [facility] & [place] 10:06:47 Problem Notes None recorded. Procedures Surgical History Date Name Laterality Status Provider Name and Address Organization Details Recorded Time 03/21/20 24 EMG/ Nerve Conduction Study completed Comfort Castro DO [address], [place], [address], [place] - [facility] - [place] & [place] 03/21/2024 15:00:24 01/20/20 22 operative procedure on knee completed Oly Dalla [place] - [facility] - [place] & [place] 03/13/2024 09:18:19 09/25/19 22 Cataract Surgery completed Oly Dalla [place] - [facility] - [place] & [place] 03/13/2024 09:17:06 11/07/19 20 Hernia Repair completed Oly Dalla [place] [facility] - [place] & [place] 03/13/2024 09:16:51 10/10/19 20 laparoscopy completed Oly Dalla [place] [facility] - [place] & [place] 03/13/2024 09:17:39 11/29/19 19 Cholecystectomy completed Oly Dalla [place] - [facility] - [place] & [place] 03/13/2024 09:16:37 01/23/20 18 placement of stent in cardiac conduit completed Oly Dalla [place] - [facility] - [place] & [place] 03/13/2024 09:16:23 Colonoscopy completed Oly Dalla [place] - [place] [facility] - [place] & [place] 03/13/2024 09:18:30 Appendectomy completed Oly Rubya [place] - L [facility] & [place] 03/13/2024 09:18:40 lithotomy completed Oly Dalla [place] - [facility] - [place] & [place] 03/13/2024 09:19:37 Imaging Results None recorded. Procedure Notes None recorded. Medical Equipment None Reported. Allergies No known drug allergies Medications Name Sig Start Date Stop Date Status Note LastModified by Organization Details LastModified Time ketamine gabapentin lidocaine amitriptyli ne bupivacaine meloxicam 10% 6% 5% 2% 2% 0.1% tdg # Apply 1 or 2 grams of pain gel to affected areas three to four times a day. active Not Available Not Available No t Available atorvastati n 40 mg tablet Take 1 tablet every day by oral route for 90 days. active Not Available Not Available No t Available amitriptyli ne 25 mg tablet 03/13 completed Not Available Not Available Not Available amlodipine 10 mg tablet Take 1 tablet every day by oral route for 90 days. active Not Available Not Available No t Available cephalexin 500 mg capsule TAKE 1 CAPSULE BY MOUTH FOUR TIMES A DAY 03/13 completed Not Available Not Available Not Available allopurinol 300 mg tablet Take 1 tablet every day by oral route for 90 days. active Not Available Not Available No t Available methylpredn isolone 4 mg tablets in a dose pack TAKE DIRECTED ON PACKAGE 03/13 completed Not Available Not Available Not Available losartan 100 mg tablet Take 1 tablet every day by oral route for 90 days. active Not Available Not Available No t Available amitriptyli ne 100 mg tablet TAKE 1 TABLET BY MOUTH AT BEDTIME FOR 30 DAYS 03/13 completed Not Available Not Available Not Available spironolact one 50 mg tablet 03/13 completed Not Available Not Available Not Available pregabalin 50 mg capsule 03/13 completed Not Available Not Available Not Available pregabalin 100 mg capsule TAKE 1 CAPSULE BY MOUTH TWICE A DAY FOR 30 DAYS 03/13 completed Not Available Not Available Not Available aspirin 81 mg capsule Take 1 capsule every day by oral route. active Not Available Not Available No t Available Vitals Date Recorded Body height Body mass index (BMI) Body weight Provider Name and Address Organization Details Last Updated DateTime 03/13/2024 177.8 cm 36.4 kg/m2 490342.74 g Comfort Castro, DO [address] [facility], [place], [address], ARIAN MARISCAL - [place] & [place] 03/13/2024 09:30:31 Date Recorded Heart rate Systolic And Diastolic Provider Name and Address Organization Details Last Updated DateTime 03/13/2024 64 /min 144/60 mm[Hg] Oly MARISCAL [facility] & [place] 03/13/2024 09:27:21 Date Recorded Body height Body mass index (BMI) Body weight Heart rate Systolic And Diastolic Provider Name and Address Organization Details Last Updated DateTime 03/21/2024 177.8 cm 36.5 kg/m2 190301.1 8 g 67 /min 156/66 mm[Hg] Oly DON - [facility] & [place] 03/21/2024 14:22:24 Social History Question Answer Notes LastModified by Organizat ion Details LastModified Time Tobacco Smoking Status Former Smoker Oly muñiz, ARIAN Duran [facility] & [place] 03/13/2024 09:15:35 Do You Have An Advance Directive? No Information not available 03/13/2024 Are You Blind Or Do You Have Difficulty Seeing? No Information not available 03/13/2024 What Is Your Level Of Caffeine Consumption? Occasional Information not available 03/13/2024 When Did You Quit Smoking? 16+yearssince lastcigarette Information not available 03/13/2024 What Was The Date Of Your Most Recent Tobacco Screening? 03/10/2024 Information not available 03/13/2024 What Is Your Relationship Status? Lives With Significant Other Information not available 03/13/2024 Are You Passively Exposed To Smoke? No Information not available 03/13/2024 How Much Tobacco Do You Smoke? 3+ PPD Information not available 03/13/2024 How Many Years Have You Smoked Tobacco? 20 Information not available 03/13/2024 Are You Currently In School? No College Information not available 03/13/2024 Sex: Male Functional Status Question Answer Note LastModified by Organizat ion Details LastModified Time Do you use any illicit or recreational drugs? No Information not available 03/13/2024 What is your level of alcohol consumption? Occasional Information not available 03/13/2024 Do you or have you ever used smokeless tobacco? Never used smokeless tobacco Information not available 03/13/2024 Are you currently employed? 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 None Information not available 03/13/2024 Mental Status Question Answer Note LastModified by Organization D etails LastModified Time Do you feel stressed (tense, restless, nervous, or anxious, or unable to sleep at night)? [id number] Information not available 03/13/2024 Family History Relationship Description Onset Age of this Age Resolved Age Notes LastModified by Organization Details LastModified Time Brother Chronic obstructive pulmonary disease pt. added direct ly (03/10) [email or web address] Not available 03/10/2024 18:15:45 Brother Hypertensive disorder pt. added direct ly (03/10) [email or web address] Not available 03/10/2024 18:16:24 Sister Disorder of endocrine system pt. added direct ly (03/10) [email or web address] Not available 03/10/2024 18:15:59 Sister Hypertensive disorder pt. added direct ly (03/10) [email or web address] Not available 03/10/2024 18:16:24 Mother Hypertensive disorder pt. added direct ly (03/10) [email or web address] Not available 03/10/2024 18:16:24 Father Malignant neoplastic disease [email or web address] Not available 03/21 14:16:42 Medical History Condition Response Coronary Artery Disease Y Gout Y Vision or Eye Problems Y Kidney Stones Y Head Injury/Concussion Y Ear or Hearing Problems Y Hyperlipidemia Y Obstructive Sleep Apnea Y Hypertension Y Neurological Problems Y Past Encounters Encounter ID Performer Location Encounter Start Date Encounter Closed Date Diagnosis/Indication Diagnosis SNOMED-CT Code Diagnosis ICD10 Code Diagnosis Note [id number] DO JESSIE Bush [facility] Neurology [address] [facility],[address] [place] [address] 03/13/2024 09:08:01 03/13/2024 09:47:02 Paresthesia of lower extremity 541772757 R20.2 He has chronic pain and numbness in his feet. This has been presumed to be due to peripheral neuropathy but as far as he knows his prior testing was negative. I would recommend a repeat NCV/EMG of the BLE. If these results do not demonstrat e a large fiber polyneurop athy would consider referral to Podiatry for a skin punch biopsy and xrays to evaluate for other sources of his pain.He has had poor tolerance to oral medication s for the pain so I suggested a trial of a topical neuro cream. I will send rx to [facility] pharmacy. He is educated on how to use this modality. [id number] DO JESSIE Bush [facility] Neurology [address] [facility] [place] [address] 03/21/2024 14:14:59 03/21/2024 15:24:51 Paresthesia of lower extremity 878946885 R20.2 He has chronic pain and numbness in his feet. This has been presumed to be due to peripheral neuropathy but as far as he knows his prior testing was negative. I would recommend a repeat NCV/EMG of the BLE. If these results do not demonstrat e a large fiber polyneurop athvijaya would consider referral to Podiatry for a skin punch biopsy and xrays to evaluate for other sources of his pain.He has had poor tolerance to oral medication s for the pain so I suggested a trial of a topical neuro cream. I will send rx to [facility]. He is educated on how to use this modality. Health Concerns Section Related Observation LastModified by Organization Detai ls LastModified Time None Recorded Concern Status LastModified by Organization Details LastModified Time None Recorded Advance Directives Directive N: Payers Insurance Date Sequence Insurance Name Policy Number Policy [place] Covered Member ID [place] Member ID Guarantor Name 03/30/2024 2 [employer] - MEDICARE SELECT - PLAN F (MEDICARE SUPPLEMENT) Corey Cummins Quinn [id number] Corey G Quinn 03/30/2024 1 [place]ICARE[place] Corey Cummins Quinn [id number] Corey Cummins Quinn Notes Date Note Type Note Provider Name and Address Organization Details Recorded Time 03/13/2024 text/html 73 y/o right handed male here for neurologic consultation requested by Dr Morales regarding polyneuropathy. Corey is the primary historian for today's visit. Corey reports that he has had pain in his feet for many years. He really can't recall how it started. He was told he had a neuropathy by a PCP in the past. Since then he did see Dr Anna who did an emg on his legs. He tells me this was normal. He also has seen podiatry in the past. He does not believe he ever had any skin punch biopsy for workup for neuropathy. He is not sure about xrays of his feet either.He has also had HAILEY testing on his legs which is normal.He has seen PM in the past. 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 He describes that the pain in his feet moves around and is never in a constant location. He has not had much issue with the symptoms progressing up his legs. He finds his feet hurt worse when he has shoes on. Sometimes at night he can't tolerate anything to touch his feet. He has no symptoms in his hands. He is not a diabetic. No hx of any significant vitamin deficiencies but he does take regular b vitamin supplementation.No known family hx of neuropathy Over the years he had been tried on gabapentin, pregabalin, amitriptyline. He does not find these to be of any help and he really struggled with side effects from gabapentin and amitripyline. Comfort Castro, [address] , [place], [address], [facility] - [place] - [place] & [place] 03/13/2024 10:10:25
--- NOTE | 2025-03-17 09:32 | EXP.PAIN.SOA ---
[facility] Disclaimer: The information contained in this section may have been updated after the patient was seen, as this information can be updated by other users. Medical History Uses hearing aid Kidney stone Sleep apnea History of COVID-19 Hyperlipidemia Hypertension Sinus bradycardia Snoring Edema Surgical History History of appendectomy History of right cataract surgery History of left cataract surgery History of partial knee replacement History of hernia surgery History of cholecystectomy History of surgery Family History Father Cancer Sister Heart disease Social History Smoking Status: Never smoker second hand exposure: No alcohol intake: current alcohol intake frequency: holidays/special occasions only counseling provided: none substance use type: denies use current occupational status: other Travel in the last 8 weeks?: None household members: other housing: house current occupational exposures/hazards: No caffeine: Yes PM Subjective & Objective Subjective Subjective:: Patient is a pleasant 74-year-old male who presents today for follow-up. Today he does run his pain a 1 out of 10 however states that last night it was a 15 out of 10. He states it is still more so along his right foot with the last 2 toes. He does have the constant numbness and tingling. Patient is prescribed compounded cream from our office however states that he is still forgetting to apply it. Patient is asking whether or not if we can send in an order for physical therapy. He states that in the past he felt like some of the traction seem to help with this pain. Patient did previously have a lumbar epidural at L4-L5 in October that did help. His Markos has been reviewed and is appropriate. Review of Systems: General: No recent weight changes, no fever, no sleep disturbances Respiratory: No cough, no shortness of air, no recurring pulmonary infections Cardiovascular/peripheral vascular: No chest pain, no palpitations, no edema, no shortness of breath Gastrointestinal: No new onset incontinence, normal bowel movements reported Genitourinary: No new onset incontinence Musculoskeletal: Right foot numbness tingling Psychiatric: [Normal mood/affect] Neurological: [Denies weakness in extremities], [denies balance issues] Pain at rest (0-10 scale): 1 Objective Objective:: Physical Exam: General: Alert and oriented x3, no acute distress, pleasant and cooperative Lungs: Respirations even and unlabored, symmetrical chest expansion Eyes: PERRL Musculoskeletal: Flexion and extension of lumbar [spine] somewhat guarded secondary to pain, [antalgic gait noted] Neurological: Speech clear, no gross sensory deficit Has patient had previous pain injection?: No Conservative treatment options previously tried: Home exercise plan Length of treatment: Longer than 12 weeks Meds Home Medications and Allergies Home Medications ?Medication ?Instructions ?Recorded ?Confirmed ?Type allopurinol 300 mg tablet 300 mg PO DAILY Gout 12/28/17 12/18/24 History amlodipine 10 mg tablet 10 mg PO DAILY Hypertension 12/28/17 12/18/24 History atorvastatin 40 mg tablet 40 mg PO DAILY Cholesterol #30 tabs 06/13/19 12/18/24 Rx losartan 100 mg tablet 100 mg PO DAILY blood pressure 10/09/19 12/18/24 History aspirin 81 mg tablet,delayed 81 mg PO DAILY HEART HEALTH 11/10/20 12/18/24 History release (Adult Low Dose Aspirin) amitriptyline 100 mg tablet 50 mg PO DAILY 12/27/23 12/18/24 History ondansetron 4 mg disintegrating 4 mg PO Q8H PRN nausea and 04/16/24 12/18/24 Rx tablet vomiting 4 days #12 tabs New Prescriptions to Start Prescriptions: Allergies Allergy/AdvReac Type Severity Reaction Status Date / Time No Known Allergies Allergy Verified 01/11/24 09:18 Assessment and Plan *Assessment and plan (1) Lumbar radiculopathy: Status: Acute Category: Medical Code(s): M54.16 - Radiculopathy, lumbar region (2) Degenerative disc disease: Status: Acute Category: Medical Plan I did write out a new order for him to take with him to the [facility] for physical therapy to treat his low back and radicular symptoms. I did also discuss with the patient in future if the pain continues to increase that we can see about additional injection therapy. Patient did have questions for more consistent relief as well. We did discuss options such as spinal cord stimulator. We will follow-up in the future. Patient will return to clinic in 1 month for reevaluation of symptoms and plan of care. Patient has been instructed to contact the clinic with any concerns before the next appointment. Dr. Weiner has reviewed this note and agrees with this plan of care. This note was dictated using voice recognition software and make contain errors or omissions. All injections are used with Lidocaine, Bupivacaine and dexamethasone. Occasionally urine drug screen is needed to verify patient's compliance with our office pain contract. This is ordered based off specific treatments related to chronic pain with the potential to abuse certain medications.
[2025-03-17 10:04] VITALS: BP 140/73; PULSE 53; RESP 18; O2SAT 97; BMI 34.4
== END 2025-03-17 23:59 | disposition home or self-care (01) ==
LOC: SC.PAIN 09:10
PROVIDERS: PCP Family Medicine; Visit Provider Nurse Practitioner Family
DX: M54.16 Radiculopathy, lumbar region (principal)
CPT/HCPCS: 99212; G0463

== ENCOUNTER 2025-04-10 09:00 | Outpatient (RCR) | payer MEDICARE, OTHER, SELFPAY | END 2025-04-10 23:59 | disposition home or self-care (01) | LOC: PT.CARL 09:00 | PROVIDERS: PCP Family Medicine; Visit Provider Nurse Practitioner Family | DX: M54.50 Low back pain, unspecified (principal) | CPT/HCPCS: 97012; 97110; 97112; 97140; 97161 ==

== ENCOUNTER 2025-04-15 06:52 | Outpatient (RCR) | payer MEDICARE, OTHER, SELFPAY | END 2025-04-30 09:28 | disposition home or self-care (01) | LOC: PT.CARL 06:52 | PROVIDERS: PCP Family Medicine; Visit Provider Nurse Practitioner Family | DX: M54.50 Low back pain, unspecified (principal) | CPT/HCPCS: 97110; 97140 ==

== ENCOUNTER 2025-04-15 13:03 | Outpatient (POV) | payer MEDICARE, OTHER, SELFPAY ==
--- OUTSIDE RECORDS SUMMARY | 2024-11-14 06:15 | XMS_ITS ---
[address] [place] [id number] Email Address Preferred Language en Marital Status Mu-Ism Affiliation Unknown Race White Ethnic Group Not or Lati no Author Organization [facility] Address [address] [facility] [address] [place] [id number] Care Team Providers Care Potash Flaker Name Role Phone Paresh Morlaes Primary Care Provider Allergies No Known Allergies Results Component Value Reference Range Notes Influenza Screen (in house) Reviewed date:11/14/2024 06:00:36 PM Interpretation: Performing Lab: Notes/Report: results Pos A REASON FOR VISIT F/U from ER no better Medications Medication SIG (Take, Route, Frequency, Duration) Notes Start Date End Date Status Zithromax Z-Umang 250 MG as directed Orall y once daily; Duration: 5 day(s) 11/14/2024 Active Losartan Potassium 100 MG 1 tab(s) orall y once a day; Duration: 90 days Active Allopurinol 300 MG 1 tab(s) orally once a day; Duration: 90 days Active amLODIPine Besylate 10 MG 1 tab(s) orall y once a day; Duration: 90 days Active Atorvastatin Calcium 40 MG 1 tab(s) oral ly once a day; Duration: 90 days Active Vitamins-Lipotropics - 1 tab(s) orally o nce a day; Duration: 30 day(s) Active Aspirin Adult Low Dose 81 MG 1 tab(s) orally once a day Active CPAP Supplies - as directed as directed 08/25/2023 Active CareTouch CPAP & BIPAP Hose 1 DIRECTED Active CPAP SUPPLIES DIRECTED 08/25/2020 Act zulema Tamiflu 75 MG 1 capsule Orally Twi ce a day; Duration: 5 day(s) 11/14/2024 Active Promethazine-DM 6.25-15 MG/5ML 5 ml as needed Orally every 6 hrs 11/14/2024 Active PEG 3350 17 GM/SCOOP 1 scoop mixed with 8 ounces of fluid Orally Once a day; Duration: 30 day(s) Active Vital Signs Weight 253 lbs 11/14/2024 Blood pressure systolic 126 mm Hg 11/15/19 25 Blood pressure diastolic 70 mm Hg 025 Heart Rate 88 /min 11/14/2024 Height 69.75 in 11/14/2024 BMI 36.56 kg/m2 11/14/2024 Encounters Encounter Location Date Provider Diagnosis [facility] [address] [place], [place] [id number] 11/14/2024 Paresh Morales Influenza A J 10.1 Assessments Encounter Date Diagnosis (ICD Code) Assessment Notes Treatment Notes Treatment Clinical Notes Section Notes 11/14/2024 Influenza A (ICD-10 - J10.1) 11/14/2024 Other WBC count done in ER last night elevated at 12.4, with a left shift, adding Zithromax due to possible multi organism infection Plan Of Treatment Medication Medication Name Sig Start Date Stop Date Notes Zithromax Z-Umang 250 MG as directed Orall y once daily; Duration: 5 day(s) 11/14/2024 Tamiflu 75 MG 1 capsule Orally Twi ce a day; Duration: 5 day(s) 11/14/2024 Promethazine-DM 6.25-15 MG/5ML 5 ml as n eeded Orally every 6 hrs 11/14/2024 Treatment Notes Assessment Notes Other WBC count done in ER last night elevated at 12.4, with a left shift, adding Zithromax due to possible multi organism infection Next Appt Details Follow Up: prn, Reason: Provider Name:Paresh Zayas ry, 09/19/2025 09:15:00 AM, [address], [address], [place], [id number], Progress Notes * MARISA LEMUS GDOB:1950 (75 yo M)Acc No.[id number]:11/14/2024 Progress Notes Patient: MARISA TAYLOR Maria G Provider: Dona Hart:1950 A ge:74 Y S ex:Male Date:11/14/2024 Address:[address], [place], [id number] Subjective: * Chief Complaints: * 1 . F/U from ER no better. * HPI: H PI: 74 year old male presents with c/o Here for follow up on: 0 11/12/2024 [facility] er visit. Pt was seen for cough and nausea that started Monday night. Pt states he did have a respiratory panel done and it was negative. Pt continues with cough, fever, bodyaches and congestion. * ROS: D ERMATOLOGY: no R nita. n o H aliyah. G ASTROENTEROLOGY: no N ausea. n o V omiting. U ROLOGY: no D ifficulty urinating. n o B lood in urine. * Medical History: H ypertension, Hyperlipidemia, LT Heart Cath, CAD, Left heart cath with 1 stent January 2018, Kidney Stones, Hiatal Hernia, Cholelithiasis, Gout, Sleep apnea, Bilateral Inguinal Hernia, CT 12/2017, Neuropathy, Cardiac murmur, echo 2022, Diastolic dysfunction, Aortic sclerosis. * Surgical History: A ppendectomy 1982, Kidney Stone Removal , Cardiac Stent Placed x1 , Cholecystectomy 12/2018, Bilateral Cataract Removal 2019, Bilateral Umbilical Hernia Repair 2019, RT Knee Scope 10/10/2019, RT Carpal Tunnel Release 09/19/2023. * Hospitalization/Major Diagno stic Procedure: H yperkalemia, Leucocytosis, Lightheaded- [facility] 02/08-02/09/2018, Fractured Finger- [facility] ER 10/20/2018. * Family History: F ather: , diagnosed with Cancer. M other: 92 yrs, diagnosed with Hypertension, Stroke. C hildren: alive. S iblings: diagnosed with Diabetes, Hypertension, Heart Disease, Cancer. 2 brother(s) , 1 sister(s) . 2 son(s) - healthy. . Sceroscis of his Liver - non alcoholic, sister - , brain tumor. * Social History: C URRENT TOBACCO USE: No . P ast smoking status: previous history, Pt states that he was a 5ppd smoker, Pt states that he stopped smoking at age 48, started smoking at age 15. * Medications: T aking PEG 3350 17 GM/SCOOP Powder 1 scoop mixed with 8 ounces of fluid Orally Once a day , Taking Vitamins-Lipotropics - Capsule 1 tab(s) orally once a day , Taking Aspirin Adult Low Dose 81 MG Tablet Delayed Release 1 tab(s) orally once a day , Taking CareTouch CPAP & BIPAP Hose MACHINE AND SUPPLIES 1 DIRECTED , Taking CPAP SUPPLIES DIRECTED , Taking CPAP Supplies - - as directed as directed , Taking Losartan Potassium 100 MG Tablet 1 tab(s) orally once a day , Taking amLODIPine Besylate 10 MG Tablet 1 tab(s) orally once a day , Taking Atorvastatin Calcium 40 MG Tablet 1 tab(s) orally once a day , Taking Allopurinol 300 MG Tablet 1 tab(s) orally once a day , Medication List reviewed and reconciled with the patient * Allergies: N .K.D.A. Objective: * Vitals: W t:253, Temp:100.2, BP:126/70, HR:88, O2 Sat:94% on RA, Nurse:jennifer, Ht: 69.75, BMI:36.56. * Examination: E NT/Respiratory: General Appearance: N AD. H eart : RRR. L ungs: good air movement, coarse breath sounds due to upper airway congestion. E xtremities :?short leg walking boot on left leg. Assessment: * Assessment: 1. I nfmars A - J10.1 (Primary) Plan: * Treatment: Value Reference Range r esults Pos A * Kristin Ly 11/14/2024 10:35:52 AM > , Provider reviewed results while patient in office. 2.?Others? Start Zithromax Z-Umang Tablet, 250 MG, as directed, Orally, once daily, 5 day(s), 6 tabs, Refills 0. ? Notes: WBC count done in ER last night elevated at 12.4, with a left shift, adding Zithromax due topossible multi organism infection?? * Procedure Codes: G 2211 Complex e/[place], [address] [place], [address] Flu Test- Nasal Swab, Modifiers: QW , 3074F SYST BP LT 130 MM HG, 3078F DIAST BP < 80 MM HG * Follow Up: p rn * Images: Billing Information: * Visit Code: 62823 Office Visit, Est Pt., Level 3. * Procedure Codes: G2211 Complex e/[place] [address] [place] [address] Flu Test- Nasal Swab. Modifiers: QW 3074F SYST BP LT 130 MM HG. 3078F DIAST BP < 80 MM HG. * Electronic signature of Nieves Morales MD on 04/15/2025 at 01:13 PM EDT Sign off status: Pending * Provider: Deepak Morales M.D. Date: 0 11/14/2024 Generated for Janet messer/Kuldeep/Giftysmitting on: 0 04/15/2025 01:13 PM EDT History and Physical Notes * HPI (History of Present Illness) Category Sub-Category Detail Notes Category Not es HPI Here for follow up on: 5 [facility] er visit. Pt was seen for cough and nausea that started Monday night. Pt states he did have a respiratory panel done and it was negative. Pt continues with cough, fever, bodyaches and congestion Examination Category Sub-Category Detail Notes Category Not es ENT/Respiratory Heart : RRR Lungs: good air movement, c oarse breath sounds due to upper airway congestion Extremities : short leg walking campos ot on left leg General Appearance: NAD
--- OUTSIDE RECORDS SUMMARY | 2025-03-19 05:00 | XMS_ITS ---
[address] [place] [address] Email Address Preferred Language en Marital Status Yazdanism Affiliation Unknown Race White Ethnic Group Not or Lati no Author Organization [facility] Address [address] [facility] [address] [place] [id number] Care Team Providers Care Lumber Tripper Name Role Phone Paresh Morales Primary Care Provider [phone] Allergies No Known Allergies Results Component Value Reference Range Notes P-Comprehensive Metabolic Pa earnest (CMP) Reviewed date:03/20/2025 12:32:27 PM Interpretation:satisfactory Performing Lab: Notes/Report: Test performed by [facility] [address] [place] [address] , [address], [place] [address] Andrés Scott MD, Diabetes Nurse CLIA: [id number] Sodium 139 135-145 mmol/L Potassium 5.0 3.5-5.3 mmol/L Chloride 102 97-108 mmol/L CO2 25 20-32 mmol/L Glucose 102 65-99 mg/dL BUN 18 8-23 mg/dL Creatinine 0.93 0.70-1.30 mg/dL Calcium 10.0 8.6-10.4 mg/dL eGFR by Creatinine 85 >59 mL/min/1.73m2 Protein 6.6 6.0-8.3 g/dL Albumin 4.5 3.5-5.3 g/dL Alkaline Phosphatase 80 40-129 IU/L ALT (SGPT) 39 <5-55 IU/L AST (SGOT) 25 <5-46 IU/L Bilirubin, Total 0.6 <0.2-1.2 mg/dL A/G Ratio 2.1 1.1-2.5 P-Lipid Panel Reviewed date:03/20/2025 12:32:28 PM Interpretation:satisfactory Performing Lab: Notes/Report: Test performed by [facility] [address] [place] [address] , [address], [place] [address] Andrés Scott MD, Diabetes Nurse CLIA: [id number] Cholesterol 124 <200 mg/dL Triglycerides 125 <150 mg/dL HDL Cholesterol 37 >39 mg/dL Cholesterol / HDL Ratio 3.35 0.00-4.99 Ratio Non-HDL Cholesterol 87 <130 mg/dL LDL Cholesterol (Calculation) 62 <130 mg/dL LDL Cholesterol Levels* Less than 100 mg/dL Optimal 100 to 129 mg/dL Near Optimal/ Above Optimal 130 to 159 mg/dL Borderline High 160 to 189 mg/dL High 190 mg/dL and above Very High * Categories as recommended by the 2004 ATPIII guidelines LDL/HDL Ratio 1.7 <3.3 Ratio LDL Cholesterol Patient History Test Date: 03/20/2023 LDL Results: 63 Units: mg/dL % Change: - Test Date: 03/20/2024 LDL Results: 69 Units: mg/dL % Change: +9% Test Date: 03/19/2025 LDL Results: 62 Units: mg/dL % Change: -10% P-TSH reflex to FT4 Reviewed date:03/20/2025 12:32:28 PM Interpretation:Normal Performing Lab: Notes/Report: Test performed by [facility] [address] [place], [place] [address] [address] , [place] [address] Andrés Scott MD, Diabetes Nurse CLIA: [id number] TSH reflex to FT4 2.19 0.43-5.25 mU/L P-Microalbumin/Creatinine, R andom Urine Sample Reviewed date:03/20/2025 12:32:28 PM Interpretation:Normal Performing Lab: Notes/Report: Test performed by [facility] [address] [place], [place] [address] [address] , [place] [address] Andrés Scott MD, Diabetes Nurse CLIA: [id number] Albumin/Creatinine Ratio, Urine 19 0-30 ug/m g Microalbumin, Urine, Random 1.0 Creatinine, Urine 51.9 REASON FOR VISIT 6 months Medications Medication SIG (Take, Route, Frequency, Duration) Notes Start Date End Date Status CPAP Supplies - as directed as directed 08/25/2023 Active Vitamins-Lipotropics - 1 tab(s) orally o nce a day; Duration: 30 day(s) Active Aspirin Adult Low Dose 81 MG 1 tab(s) orally once a day Active CareTouch CPAP & BIPAP Hose 1 DIRECTED Active CPAP SUPPLIES DIRECTED 08/25/2020 Act zulema Atorvastatin Calcium 40 MG 1 tab(s) oral ly once a day Active amLODIPine Besylate 10 MG 1 tab(s) orall y once a day Active Losartan Potassium 100 MG 1 tab(s) orall y once a day Active PEG 3350 17 GM/SCOOP 1 scoop mixed with 8 ounces of fluid Orally Once a day; Duration: 30 day(s) Active Allopurinol 300 MG 1 tab(s) orally once a day; Duration: 90 days Active Vital Signs Weight 249.4 lbs 03/19/2025 Blood pressure systolic 120 mm Hg 03/19/20 25 Blood pressure diastolic 74 mm Hg 025 Heart Rate 64 /min 03/19/2025 Height 69.75 in 03/19/2025 BMI 36.04 kg/m2 03/19/2025 Encounters Encounter Location Date Provider Diagnosis [facility] [address] [facility] [address] [facility] [address] [place] [id number] 03/19/2025 Paresh Morales Essential hypertensi on I10 ; Combined hyperlipidemia E78.2 ; 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 03/19/2025 Non morbid obesity (ICD-10 - E66.9) Plan Of Treatment Medication Medication Name Sig Start Date Stop Date Notes Atorvastatin Calcium 40 MG 1 tab(s) orally once a day amLODIPine Besylate 10 MG 1 tab(s) orally once a day Losartan Potassium 100 MG 1 tab(s) orally once a day Treatment Notes Assessment Notes Neoplasm of uncertain behavi or of skin of nose Patient wants to make his own dermatolog y appt. Next Appt Details Follow Up: 6 Months, Reason: Provider Name:Paresh Zayas ry, 09/19/2025 09:15:00 AM, [address] [facility] [address] [facility], [address], [place], [id number], Progress Notes * MARISA LEMUS GDOB:1950 (75 yo M)Acc No.[id number]:03/19/2025 Progress Notes Patient: MARISA TAYLOR Provider: Deepak Morales M.D. :1950 A ge:74 Y S ex:Male Date:03/19/2025 Address:[address], [place], [id number] Subjective: * Chief Complaints: * 1 . 6 months. * HPI: C ardiology: 74 year old male presents with c/o Blood Pressure Elevated P t here for 6 mo f/u on hypertension. Pt states he is doing well and does not have any concerns.? c/o Hyperlipidemia P t is fasting today. * ROS: D ERMATOLOGY: no R nita. [...] Cardiac murmur, echo 2022, Diastolic dysfunction, Aortic sclerosis, Plantar fasciitis, Carotid bruit, right side, <50% stenosis in 2023. * Surgical History: A ppendectomy 1982, Kidney Stone Removal , Cardiac Stent Placed x1 , Cholecystectomy 12/2018, Bilateral Cataract Removal 2019, Bilateral Umbilical Hernia Repair 2019, RT Knee Scope 10/10/2019, RT Carpal Tunnel Release 09/19/2023. * Hospitalization/Major Diagno stic Procedure: H yperkalemia, Leucocytosis, Lightheaded- [facility] 02/08-02/09/2018, Fractured Finger- [facility] ER 10/20/2018. * Family History: F ather: , diagnosed with Cancer. M other: 92 yrs, diagnosed with Hypertension, Stroke. C hildren: alive. S iblings: diagnosed with Cancer, Hypertension, Diabetes, Heart Disease. 2 brother(s) , 1 sister(s) . 2 [...] 1 tab(s) orally once a day , Discontinued Tamiflu 75 MG Capsule 1 capsule Orally Twice a day , Discontinued Promethazine-DM 6.25-15 MG/5ML Syrup 5 ml as needed Orally every 6 hrs , Discontinued Zithromax Z-Umang 250 MG Tablet as directed Orally once daily , Medication List reviewed and reconciled with the patient * Allergies: N .K.D.A. Objective: * Vitals: W t: 249.4, Temp: 97.8, BP: 120/74, HR: 64, Nurse: jennifer, Ht: 69.75, BMI:36.04. * Examination: G eneral Examination: General Appearance: N AD. N kellie: f aint carotid bruit on right. H eart: R SR. L ungs: c lear to auscultation. S kin: s mall, 3 mm wide pink papule on the tip of the nose. P eripheral pulses: n ormal (2+) bilaterally.?Extremities: n o leg edema. Assessment: * Assessment: 1. E ssential hypertension - I10 (Primary) 2 . C ombined hyperlipidemia - E78.2 3 . N eoplasm of uncertain behavior of skin of nose - D48.5 ?4. N on morbid obesity - E66.9 Plan: * Treatment: Value Reference Range A /G Ratio 2.1 1.1-2.5 - * A lbumin 4.5 3.5-5.3 - g/dL * A lkaline Phosphatase 80 40-129 - IU/L * A LT (SGPT) 39 <5-55 - IU/L * A ST (SGOT) 25 <5-46 - IU/L * B ilirubin, Total 0.6 <0.2-1.2 - mg/dL * B UN 18 8-23 - mg/dL * C alcium 10.0 8.6-10.4 - mg/dL * C hloride 102 97-108 - mmol/L * C O2 25 20-32 - mmol/L * C reatinine 0.93 0.70-1.30 - mg/dL * G lucose 102 H 65-99 - mg/dL * P otassium 5.0 3.5-5.3 - mmol/L * S odium 139 135-145 - mmol/L * P rotein 6.6 6.0-8.3 - g/dL * e GFR by Creatinine 85 >59 - mL/min/1.73m2 * Nicho Lyira 03/20/2025 12:29: 42 PM EDT > LM for pt to return call [facility] 03/20/2025 12:32:11 PM EDT > Pt informed ?LAB: P-Microalbumin/Creatinine, Random Urine Sample (Collection Date & Time - 03/19/2025 08:44 AM)?Normal* Value Reference Range A lbumin/Creatinine Ratio, Urine 19 0-30 - ug /mg * C reatinine, Urine 51.9 - mg/dL * M icroalbumin, Urine, Random 1.0 - mg/dL * King Kristin 03/20/2025 12:29: 42 PM EDT > LM for pt to return call [facility] 03/20/2025 12:32:11 PM EDT > Pt informed 2.?Combined hyperlipidemia? Continue Atorvastatin Calcium Tablet, 40 MG, 1 tab(s), orally, once a day.?LAB: P-Comprehensive Metabolic Panel (CMP) (Collection Date & Time - 03/19/2025 08:44 AM)?satisfactory* Value Reference Range A /G Ratio 2.1 1.1-2.5 - * A lbumin 4.5 3.5-5.3 - g/dL * A lkaline Phosphatase 80 40-129 - IU/L * A LT (SGPT) 39 <5-55 - IU/L * A ST (SGOT) 25 <5-46 - IU/L * B ilirubin, Total 0.6 <0.2-1.2 - mg/dL * B UN 18 8-23 - mg/dL * C alcium 10.0 8.6-10.4 - mg/dL * C hloride 102 97-108 - mmol/L * C O2 25 20-32 - mmol/L * C reatinine 0.93 0.70-1.30 - mg/dL * G lucose 102 H 65-99 - mg/dL * P otassium 5.0 3.5-5.3 - mmol/L * S odium 139 135-145 - mmol/L * P rotein 6.6 6.0-8.3 - g/dL * e GFR by Creatinine 85 >59 - mL/min/1.73m2 * [facility] 03/20/2025 12:29: 42 PM EDT > LM for pt to return call [facility] 03/20/2025 12:32:11 PM EDT > Pt informed ?LAB: P-Lipid Panel (Collection Date & Time - 03/19/2025 08:44 AM)? satisfactory* Value Reference Range C holesterol / HDL Ratio 3.35 0.00-4.99 - Ratio * C holesterol 124 <200 - mg/dL * H DL Cholesterol 37 L >39 - mg/dL * L DL Cholesterol (Calculation) 62 <130 - mg/d L * L DL/HDL Ratio 1.7 <3.3 - Ratio * N on-HDL Cholesterol 87 <130 - mg/dL * T riglycerides 125 <150 - mg/dL * [facility] 03/20/2025 12:29: 42 PM EDT > LM for pt to return call [facility] 03/20/2025 12:32:11 PM EDT > Pt informed ?LAB: P-TSH reflex to FT4 (Collection Date & Time - 03/19/2025 08:44 AM)? Normal* Value Reference Range T SH reflex to FT4 2.19 0.43-5.25 - mU/L * [facility] 03/20/2025 12:29: 42 PM EDT > LM for pt to return call Kristin Ly 03/20/2025 12:32:11 PM EDT > Pt informed 3.?Neoplasm of uncertain behavior of skin of nose? Notes: Patient wants to make his own dermatology appt.?? * Procedure Codes: G 2211 Complex e/m visit add on, 1036F TOBACCO NON-USER, G8950 PREHTN/HTN BP DOC INDCD F/U DOC, G8752 MOST RECENT SYSTOLIC BP < 140MM HG, G8754 MOST RECENT DIASTOLIC BP < 90MM HG * Follow Up: 6 Months * Images: Billing Information: * Visit Code: 08657 Office Visit, Est Pt., Level 4. * Procedure Codes: G2211 Complex e/m visit add on. 1036F TOBACCO NON-USER. G8950 PREHTN/HTN BP DOC INDCD F/U DOC. G8752 MOST RECENT SYSTOLIC BP < 140MM HG. G8754 MOST RECENT DIASTOLIC BP < 90MM HG. * Electronic signature of Nieves Morales MD on 04/15/2025 at 01:13 PM EDT Sign off status: Pending * Provider: Deepak Morales M.D. Date: 0 03/19/2025 Generated for Janet messer/Kuldeep/eTransmitting on: 0 04/15/2025 01:13 PM EDT History and Physical Notes * HPI (History of Present Illness) Category Sub-Category Detail Notes Category Not es Cardiology Blood Pressure Elevated Pt here for 6 mo f/u on hypertension. Pt states he is doing well and does not have any concerns Hyperlipidemia Pt is fasting today Examination Category Sub-Category Detail Notes Category Not es General Examination Heart: RSR Lungs: clear to auscultatio n Extremities: no leg edema General Appearance: NAD Skin: small, 3 mm wide pin k papule on the tip of the nose Neck: faint carotid bruit on right Peripheral pulses: normal (2+) bilatera lly
[2025-04-15 13:11] VITALS: BP 125/65; PULSE 65; RESP 14; O2SAT 96; BMI 34.4
--- OUTSIDE RECORDS SUMMARY | 2025-04-15 13:13 | XMS_ITS | Clinical Summary ---
Author Organization [facility] Address [address] [place] [address] Care Team Providers Care Babbitt Spinner Name Role Phone Unavailable Primary Care Provider Unavailabl e Allergies No known active allergies Medications vitamin B-12 (CYANOCOBALAMIN) 1000 MCG tabletIndications:O ther polyneuropathy Take 1 tablet by mouth Daily. 30 tablet 7 Active Cholecalciferol (VITAMIN D3) 1000 units capsule Take by mouth. Active TraMADol HCl ER 100 MG capsule sustained-release 24 hrIndications:Arthr itis Take 1 tablet by mouth Daily. 30 capsule 5 8 Active metoprolol succinate XL (TOPROL-XL) 100 MG 24 hr tabletIndications:B enign essential HTN Take 1 tablet by mouth Daily. 30 tablet 8 Active spironolactone (ALDACTONE) 50 MG tablet Take 50 mg by mouth Daily. 3 8 Active furosemide (LASIX) 40 MG tablet Take 40 mg by mouth Daily. 3 8 Active lisinopril (PRINIVIL,ZESTRIL) 20 MG tablet Take 20 mg by mouth Daily. 3 8 Active atorvastatin (LIPITOR) 40 MG tablet Take 40 mg by mouth Daily. 3 8 Active aspirin 81 MG EC tablet Take 81 mg by mouth Daily. 3 8 Active ticagrelor (BRILINTA) 90 MG tablet tabletIndications:C oronary artery disease involving [place] coronary artery of [place] heart without angina pectoris Take 1 tablet by mouth 2 (Two) Times a Day. 60 tablet 8 Active allopurinol (ZYLOPRIM) 300 MG tabletIndications:I diopathic gout, unspecified chronicity, unspecified site TAKE 1 TABLET BY MOUTH EVERY DAY 90 tablet 8 Active amLODIPine (NORVASC) 10 MG tabletIndications:B enign essential HTN TAKE 1 TABLET BY MOUTH EVERY DAY 90 tablet 8 Active Active Problems Problem Noted Date Diagnosed Date Coronary artery disease invo lving [place] coronary artery of [place] heart without angina pectoris 02/01/2018 Gallstones 02/01/2018 Kidney stones 02/01/2018 Arthritis 04/28/2016 Gout 04/28/2016 Pure hypercholesterolemia 04/28/2016 Benign essential HTN 04/28/2016 Peripheral neuropathy 04/28/2016 Resolved Problems Problem Noted Date Diagnosed Date Resolved Date Abdominal aortic aneurysm (A AA) without rupture 08/01/2017 01/05/2018 Neuropathic pain 04/28/2016 05/05/2016 Osteoarthrosis 04/28/2016 05/05/2016 Immunizations Immunization Administration Dates Next Due Fluzone High-Dose 65+YRS 06/12/2017 Pneumococcal Conjugate 13-Valent (PCV13) 017 Family History Medical History Relation Name Comments Hepatitis Brother Cancer Father Hepatitis Mother Relation Name Status Comments Brother Alive Father Mother Social History Tobacco Use Types Packs/Day Years Used Date Smoking Tobacco: Former Cigarettes 3 30 1 09/30/1971 - 07/31/2002 Smokeless Tobacco: Never Alcohol Use Standard Drinks/Week Comments Yes 0 (1 standard drink = 0.6 oz pur e alcohol) occasional Abuse Screen Answer Date Recorded Unsafe at Home or Work/School Not on file Feels Threatened by Someone? Not on file 05/2023 Does Anyone Keep You from Co ntacting Others or Doint Things Outside the Home? Not on file 06/19/2023 Physical Sign of Abuse Present Not on file 1 Housing Stability Answer Date Recorded Current Living Arrangements Not on file 05/2023 Potentially Unsafe Housing Conditions Not on nasrin e 06/19/2023 Family and Community Support Answer Ben e Recorded Help with Day-to-Day Activities Not on file 06/19/2023 Lonely or Isolated Not on file 06/19/2023 Employment Answer Date Recorded Do you want help finding or keeping work or a anastasiia b? Not on file 06/19/2023 Disabilities Answer Date Recorded Concentrating, Remembering, or Making Decisions Difficulty Not on file 06/19/2023 Doing Errands Independently Difficulty Not on fi le 06/19/2023 Education Answer Date Recorded Help with school or training? Not on file Preferred Language Not on file 06/19/2023 Sex and Gender Information Value Date Recorded Sex Assigned at Not on file Legal Sex Male 11:58 AM EDT Gender Identity Not on file Sexual Orientation Not on file Occupation Industry Job Start Date Job End Date [employer] Not on nasrin e Not on file Not on file Last Filed Vital Signs Vital Sign Reading Time Taken Comments Blood Pressure 138/80 02/01/2018 8:34 AM EDT Pulse 45 11/16/2017 8:42 AM EST Temperature 36.4 C (97.6 F) 02/01/2018 8:34 AM EDT Respiratory Rate - - Oxygen Saturation 96% 11/16/2017 8:42 AM EST Inhaled Oxygen Concentration - - Weight 108 kg (237 lb 12.8 oz) 02/01/2018 8:34 A M EDT Height 177.8 cm (5' 10 ) 02/01/2018 8:34 AM EDT Body Mass Index 34.12 02/01/2018 8:34 AM EDT Plan of Treatment Health Maintenance Due Date Last Done Comments TDAP/TD VACCINES (1 - Tdap) 1967 COLOGUARD 1993 COLON CANCER SCREENING 5 YEA R SIGMOIDOSCOPY [address] COLONOGRAPHY 1993 FECAL OCCULT BLOOD TEST 1993 FIT Testing (1 year) 1993 ZOSTER VACCINE (2 of 2) 11/06/2013 09/11/2013 ANNUAL PHYSICAL 02/22/2016 LIPID PANEL 11/03/2017 11/03/2016, 09/12, 05/21/2014, Additional history exists Pneumococcal Vaccine 50+ (2 of 2 - PPSV23) 06/12/2018 06/12/2017 RSV Vaccine - Adults (1 - 1- dose 75+ series) 2023 COVID-19 Vaccine ( - 2023-2 5 season) 2024 INFLUENZA VACCINE 06/11/2025 07/08/2018, , 06/12/2017, Additional history exists COLONOSCOPY 07/17/2027 07/17/2017 COLORECTAL CANCER SCREENING 07/17/2027 HEPATITIS C SCREENING Discontinued Procedures Procedure Name Priority Date/Time Associated Diagnosis Comments LIPID PANEL Routine 11/03/2016 10:39 AM EST Benign essential HTN from Last 3 Months or Most Recently Relevant to Health Maintenance Results * (ABNORMAL) Lipid Panel (11/03/2016 10:39 AM EST) Total Cholesterol 200 0 - 200 mg/dL 11/03/2016 12:13 PM EST [facility] Triglycerides 210(H) 0 - 150 mg/dL 11/03/2016 12:13 PM EST [facility] HDL Cholesterol 40 40 - 60 mg/dL 11/03/2016 12:13 PM EST [facility] LDL Cholesterol 147(H) 0 - 130 mg/dL 11/03/2016 12:13 PM EST [facility] Blood Right upper arm structure / Unknown Venipuncture / Unknown 11/03/2016 10:39 AM EST 11/03/2016 10:39 AM EST Narrative [facility] - 11/03/2016 12:13 PM EST Cholesterol Reference Ranges: Desirable < 200 mg/dL Borderline 200-239 mg/dL High Risk > 239 mg/dL Triglyceride Reference Ranges: Normal < 150 mg/dL Borderline 150-199 mg/dL High 200-499 mg/dL Very High > 499 mg/dL HDL Reference Ranges: Low < 40 mg/dL High > 59 mg/dL LDL Reference Ranges: Optimal < 100 mg/dL Near Optimal 100-129 mg/dL Borderline 130-159 mg/dL High 160-189 mg/dL Very High > 189 mg/dL us Hollie Tavarez MD LAB BLOOD ORDERABLES Final Result [facility]
[address] [place] [address], from Last 3 Months or Most Recently Relevant to Health Maintenance Insurance MEDICARE A & B [facility]
--- OUTSIDE RECORDS SUMMARY | 2025-04-15 13:13 | XMS_ITS | Encounter Summary ---
Author Organization [facility] Address [address] [place] [address] Care Team Providers Care Forms Builder Name Role Phone Hollie Tavarez MD Primary Care Provider Svetlana vailable Encounter Details Date Type Department Care Team (Late st Contact Info) Description 09/15/2014 External CPT II [employer] [facility]END[facility] - [facility] Social History Tobacco Use Types Packs/Day Years Used Date Smoking Tobacco: Never Assessed Sex and Gender Information Value Date Recorded Sex Assigned at Not on file Legal Sex Male 11:58 AM EDT Gender Identity Not on file Sexual Orientation Not on file documented as of this encounter Plan of Treatment Not on file documented as of this encounter Visit Diagnoses Not on filedocumented in this encounter Care Teams Forms Builder Relationship Specialty Start Date End Date Hollie Tavarez MD PCP - General 08/12/15 04/22/19 documented as of this encounter
--- OUTSIDE RECORDS SUMMARY | 2025-04-15 13:13 | XMS_ITS | Patient Health Record ---
Author [address] [place] [address] Email Address Preferred Language en Marital Status Christian Affiliation Unknown Race White Ethnic Group Not or Lati no Author Organization [facility] Address [address] [place] [id number] Care Team Providers Care Health Inspector Food Name Role Phone Paresh Morales Primary Care Provider [phone] Allergies No Known Allergies Results Component Value Reference Range Notes X ray : Spine, lumbosacral Reviewed date:09/19/2024 09:18:29 AM Interpretation:degenerative change Performing Lab: Notes/Report: degenerative change P-Comprehensive Metabolic Pa earnest (CMP) Reviewed date:03/20/2025 12:32:27 PM Interpretation:satisfactory Performing Lab: Notes/Report: Test performed by [facility], [address] , [address], [place] [address] Andrés Scott MD, Machine Load Clerk CLIA: [id number] Sodium 139 135-145 mmol/L Potassium 5.0 3.5-5.3 [...] Interpretation:satisfactory Performing Lab: Notes/Report: Test performed by [facility] [address] [place] [address] , [facility], [place] [address] Andrés Scott MD, Machine Load Clerk CLIA: [id number] Cholesterol 124 <200 mg/dL Triglycerides 125 <150 [...] Interpretation:Normal Performing Lab: Notes/Report: Test performed by [facility] [address] [place] [address] , [place] [address] Andrés Scott MD, Machine Load Clerk CLIA: [id number] TSH reflex to FT4 2.19 0.43-5.25 mU/L P-Microalbumin/Creatinine, R andom Urine Sample Reviewed date:03/20/2025 12:32:28 PM Interpretation:Normal Performing Lab: Notes/Report: Test performed by [facility] [address] [place] [address] , [place] [address] Andrés Scott MD, Machine Load Clerk CLIA: [id number] Albumin/Creatinine Ratio, Urine 19 0-30 ug/m g Microalbumin, Urine, Random 1.0 Creatinine, Urine 51.9 Influenza Screen (in house) Reviewed date:11/14/2024 06:00:36 PM Interpretation: Performing Lab: Notes/Report: results Pos A MRI : Spine, Lumbosacral, wi thout contrast Reviewed date:10/11/2024 10:44:34 AM Interpretation:Multilevel DDD Performing Lab: Notes/Report: Multilevel DDD Reason For Referral Diagnosis 1 Peripheral polyneuro terry (G62.9) Diagnosis 2 Lumbar facet arthrop athy (M47.816) Diagnosis 3 Spinal stenosis of l umbar region without neurogenic claudication (M48.061) Diagnosis 4 Degeneration of inte rvertebral disc of lumbar region, unspecified whether pain present (M51.369) Referral Organization [facility] Referring Provider First Name Paresh Referring Provider Last Name Carmen Referring Provider Speciality Family Pra ctice Referred Provider Cy Weiner Referred Provider Specialty Pain Managem ent General Notes Nevin Beth 10:20:12 AM > faxed to [facility] Pain Management, Nevin Beth 10/15/2024 1:26:27 PM > 10/17/2024 at 01:00pm Referral Priority Routine Medications Medication SIG (Take, Route, Frequency, Duration) Notes Start Date End Date Status CPAP Supplies - as directed as directed 08/25/2023 Active Vitamins-Lipotropics - 1 tab(s) orally o nce a day; Duration: 30 day(s) Active Aspirin Adult Low Dose 81 MG 1 tab(s) orally once a day Active CareTouch CPAP & BIPAP Hose 1 DIRECTED Active Atorvastatin Calcium 40 MG 1 tab(s) oral ly once a day Active CPAP SUPPLIES DIRECTED 08/25/2020 Act zulema amLODIPine Besylate 10 MG 1 tab(s) orall y once a day Active Losartan Potassium 100 MG 1 tab(s) orall y once a day Active Allopurinol 300 MG 1 tab(s) orally once a day; Duration: 90 days Active PEG 3350 17 GM/SCOOP 1 scoop mixed with 8 ounces of fluid Orally Once a day; Duration: 30 day(s) Active Immunizations Vaccine Route Administration Date Status Comme nts xFluzone High Dose-private (65yr&older) Unknown 07/07/2016 Administered xFluzone High Dose-private (65yr&older) Unknown 06/12/2017 Administered Tetanus Tdap-Adacel (over 7yrs) IM Intramuscular 09/14/2021 Administered Prevnar (PCV20) IM Intramuscular 09/19/2022 Administered Prevnar (PCV13) Unknown 06/12/2017 Administered PNEUMOVAX 23 VACCINE IM Intramuscular 09/14/2021 Administe red Hepatitis A (adult) IM Intramuscular 07/15/2018 Administer ed Fluzone High Dose (65yr and older) Unknown 05/12/2020 Administered Fluzone High Dose (65yr and older) Unknown 05/28/2021 Administered Fluzone High Dose (65yr and older) Unknown 07/08/2022 Administered Fluzone High Dose (65yr and older) Unknown 08/16/2023 Administered Fluzone High Dose (65yr and older) Unknown 08/19/2024 Administered COVID 19 Moderna Unknown 11/05/2020 Administered COVID 19 Moderna Unknown 12/03/2020 Administered COVID 19 Moderna Unknown 07/28/2021 Administered Problems Problem Type SNOMED Code ICD Code Onset Dates Problem Status W/U Status Risk Notes Problem Essential hypertension (22642011) Essential hypertension (I10) Active confirmed Problem Arthropathy of lumbar facet joint (122511127) Lumbar facet arthropathy (M47.816) Active confirmed Problem Cholelithiasis without obstruction (78115663) Calculus of gallbladder without cholecystitis without obstruction (K80.20) Active confirmed Problem Anesthesia of skin (491975527) Anesthesia of skin (R20.0) Active confirmed Problem Paresthesia (finding) (48069788) Paresthesia of skin (R20.2) Active confirmed Problem 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) Peripheral polyneuropathy (G62.9) Active confirmed Problem Obstructive sleep apnea syndrome (67595916) Obstructive sleep apnea syndrome (G47.33) Active confirmed Problem Atherosclerotic heart disease of citizen [place] coronary artery without angina pectoris (418899293517303) Coronary artery disease involving citizen [place] coronary artery of [place] heart without angina pectoris (I25.10) Active confirmed Problem Neuropathy (853567880) Neuropathy (G62.9) Active confirmed Problem Kidney stone (32305888) Renal stones (N20.0) Active confirmed Problem Osteoarthritis of knee (100801029) Primary osteoarthritis of right knee (M17.11) Active confirmed Problem Chronic gouty arthritis (65729020) Chronic gout without tophus, unspecified cause, unspecified site (M1A.9XX0) Active confirmed Problem Polyneuropathy (88858067) Polyneuropathy (G62.9) Active confirmed Problem Mixed hyperlipidemia (407095425) Combined hyperlipidemia (E78.2) Active confirmed Problem Obesity (706722123) Non morbid obesity (E66.9) Active confirmed Problem Spinal stenosis of lumbar region (37088396) Spinal stenosis of lumbar region without neurogenic claudication (M48.061) Active confirmed Problem Degeneration of lumbar intervertebral disc (disorder) (33392029) Degeneration of intervertebral disc of lumbar region, unspecified whether pain present (M51.369) Active confirmed Vital Signs Heart Rate 64 /min 03/19/2025 Blood pressure diastolic 74 mm Hg 03/19/2025 Height 69.75 in 03/19/2025 Blood pressure systolic 120 mm Hg 03/19/2025 Weight 249.4 lbs 03/19/2025 BMI 36.04 kg/m2 03/19/2025 Encounters Encounter Location Date Provider Diagnosis [facility] [address] [place], [place] [id number] 09/18/2024 Paresh Quincy Pain in right lower leg M79.661 ; Pain in left lower leg M79.662 and Essential hypertension I10 [facility] [address] [place], [place] [id number] 11/14/2024 Paresh Quincy Influenza A J10.1 [facility] [address] [place], [place] [id number] 03/19/2025 Paresh Quincy Essential hypertensi on I10 ; Combined hyperlipidemia E78.2 ; Neoplasm of uncertain behavior of skin of nose D48.5 and Non morbid obesity E66.9 [facility] [address] [place], [place] [id number] 08/23/2024 Paresh Quincy [facility] [address] [place], [place] [id number] 09/19/2024 Paresh Quincy Polyneuropathy G62.9 ; Pain in right lower leg M79.661 ; Pain in left lower leg M79.662 and Lumbar facet arthropathy M47.816 [facility] [address] [place], [place] [id number] 10/11/2024 Paresh Quincy Polyneuropathy G62.9 ; Lumbar facet arthropathy M47.816 ; Spinal stenosis of lumbar region without neurogenic claudication M48.061 and Degeneration of intervertebral disc of lumbar region, unspecified whether pain present M51.369 [facility] [address] [facility] [address] [place], [place] [id number] 10/11/2024 Paresh Quincy [facility] [address] [place] [id number] 10/17/2024 Paresh Morales Essential hypertensi on I10 Assessments Encounter Date Diagnosis (ICD Code) Assessment Notes Treatment Notes Treatment Clinical Notes Section Notes 09/18/2024 Pain in right lower leg (ICD-10 - M79.661) 09/18/2024 Pain in left lower leg (ICD-10 - M79.662) 09/19/2024 Polyneuropathy (ICD-10 - G62.9) 10/11/2024 Lumbar facet arthropathy (ICD-10 - M47.816) 10/11/2024 Polyneuropathy (ICD-10 - G62.9) 10/17/2024 Essential hypertension (ICD-10 - I10) 11/14/2024 Influenza A (ICD-10 - J10.1) 03/19/2025 Essential hypertension (ICD-10 - I10) 03/19/2025 Combined hyperlipidemia (ICD-10 - E78.2) 09/19/2024 Pain in right lower leg (ICD-10 - M79.661) 09/19/2024 Pain in left lower leg (ICD-10 - M79.662) 03/19/2025 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 10/11/2024 Spinal stenosis of lumbar region without neurogenic claudication (ICD-10 - M48.061) 09/18/2024 Essential hypertension (ICD-10 - I10) 09/19/2024 Lumbar facet arthropathy (ICD-10 - M47.816) 10/11/2024 Degeneration of intervertebral disc of lumbar region, unspecified whether pain present (ICD-10 - M51.369) 03/19/2025 Non morbid obesity (ICD-10 - E66.9) 11/14/2024 Other WBC count done in ER last night elevated at 12.4, with a left shift, adding Zithromax due to possible multi organism infection Plan Of Treatment Pending Test Test Name Order Date colonoscopy 09/20/2023 Next Appt Details Provider Name:Paresh jane, 09/19/2025 09:15:00 AM, [address], [address], [place], [id number], Insurance Providers Payer Name Payer Address Payer Phone Subscriber Number Group Number Insured Name Patient Relationship to Insured Coverage Start Date Coverage End Date MEDICARE PART B [address] [address] [place] [phone] [id number] MARIAHMARISA PERKINS Self - patient is the insured [employer] [address] [address] [place] [address] [id number] MARISA LEMUS Self - patient is the insured Medical (General) History Medical History History ICD Code Hypertension Hyperlipidemia LT Heart Cath, CAD, Left heart cath with 1 stent January 2018 Kidney Stones Hiatal Hernia Cholelithiasis Gout sleep apnea Bilateral Inguinal Hernia, CT 12/2017 Neuropathy Cardiac murmur, echo 2022 Diastolic dysfunction aortic sclerosis plantar fasciitis Carotid bruit, right side, <50% stenosis in 2023 Surgical History Surgery Date(Month/Year) Appendectomy 1982 Kidney Stone Removal Cardiac Stent Placed x1 Cholecystectomy 12/2018 Bilateral Cataract Removal 2019 Bilateral Umbilical Hernia Repair 2019 RT Knee Scope 10/10/2019 RT Carpal Tunnel Release 09/19/2023 Hospitalization History Reason Date(Month/Year) Fractured Finger- [facility] ER 10/20/2018 Hyperkalemia, Leucocytosis, Lightheaded- [facility] 02/08-02/09/2018
--- NOTE | 2025-04-15 13:33 | EXP.PAIN.SOA ---
[facility] Disclaimer: The information contained in this section may have been updated after the patient was seen, as this information can be updated by other users. Medical History Uses hearing aid Kidney stone Sleep apnea History of COVID-19 Hyperlipidemia Hypertension Sinus bradycardia Snoring Edema Surgical History History of appendectomy History of right cataract surgery History of left cataract surgery History of partial knee replacement History of hernia surgery History of cholecystectomy History of surgery Family History Father Cancer Sister Heart disease Social History Smoking Status: Never smoker second hand exposure: No alcohol intake: current alcohol intake frequency: holidays/special occasions only counseling provided: none substance use type: denies use current occupational status: other Travel in the last 8 weeks?: None household members: other housing: house current occupational exposures/hazards: No caffeine: Yes PM Subjective & Objective Subjective Subjective:: Patient is a pleasant 75-year-old male who presents today for 1 month follow-up. He does state that he is still having the numbness and tingling into his bilateral feet. He does state that the right foot is much worse than the left. He was hoping that the physical therapy ordered at her last visit would really help and ease down the pain like it had in the past. Today he does state that he had his last visit and it made absolutely no improvement. Patient is questioning whether or not what else we can try as it is interfering with his ability perform activities of daily living such as cooking and cleaning. Patient did say a surgeon in [place] previously who did state that he was not a surgical candidate and that the pain in his feet was coming from his back. Patient did previously have a lumbar epidural in October that did help. He denies any other changes. Patient was tried on compounded cream however stated it did not seem to do a huge amount of difference. His Markos has been reviewed and is appropriate. Review of Systems: General: No recent weight changes, no fever, no sleep disturbances Respiratory: No cough, no shortness of air, no recurring pulmonary infections Cardiovascular/peripheral vascular: No chest pain, no palpitations, no edema, no shortness of breath Gastrointestinal: No new onset incontinence, normal bowel movements reported Genitourinary: No new onset incontinence Musculoskeletal: Bilateral feet numbness tingling, degenerative disc disease Psychiatric: [Normal mood/affect] Neurological: [Denies weakness in extremities], [denies balance issues] Pain at rest (0-10 scale): 5 Objective Objective:: Physical Exam: General: Alert and oriented x3, no acute distress, pleasant and cooperative Lungs: Respirations even and unlabored, symmetrical chest expansion Eyes: PERRL Musculoskeletal: Flexion and extension of [lumbar positive leg raise [spine] somewhat guarded secondary to pain, [antalgic gait noted] Neurological: Speech clear, no gross sensory deficit Has patient had previous pain injection?: No Conservative treatment options previously tried: Home exercise plan Length of treatment: Longer than 12 weeks and Physical Therapy Length of treatment: No change Meds Home Medications and Allergies Home Medications ?Medication ?Instructions ?Recorded ?Confirmed ?Type allopurinol 300 mg tablet 300 mg PO DAILY Gout 12/28/17 04/15/25 History amlodipine 10 mg tablet 10 mg PO DAILY Hypertension 12/28/17 04/15/25 History atorvastatin 40 mg tablet 40 mg PO DAILY Cholesterol #30 tabs 06/13/19 04/15/25 Rx losartan 100 mg tablet 100 mg PO DAILY blood pressure 10/09/19 04/15/25 History aspirin 81 mg tablet,delayed 81 mg PO DAILY HEART HEALTH 11/10/20 04/15/25 History release (Adult Low Dose Aspirin) amitriptyline 100 mg tablet 50 mg PO DAILY 12/27/23 04/15/25 History ondansetron 4 mg disintegrating 4 mg PO Q8H PRN nausea and 04/16/24 04/15/25 Rx tablet vomiting 4 days #12 tabs New Prescriptions to Start Prescriptions: Allergies Allergy/AdvReac Type Severity Reaction Status Date / Time No Known Allergies Allergy Verified 01/11/24 09:18 Assessment and Plan *Assessment and plan (1) Lumbar radiculopathy: Status: Acute Category: Medical Code(s): M54.16 - Radiculopathy, lumbar region (2) Degenerative disc disease: Status: Acute Category: Medical (3) Peripheral neuropathy: Status: Acute Category: Medical Code(s): G62.9 - Polyneuropathy, unspecified Plan Patient is experiencing worsening pain in his low back with numbness and tingling into his lower extremities. Patient did have limited range of motion of his lumbar spine with a positive leg raise. I did discuss with patient that I do believe they would benefit from a repeat lumbar epidural steroid injection. Risk and benefits were discussed with patient and the patient would like to proceed forward with this plan of care. Patient is not on any blood thinners. Patient has tried and failed conservative therapy including oral medications, heat and ice, topicals, recent physical therapy that he just finished today and continued at home stretching exercise for longer than 12 weeks that was physician guided between injections. Patient has had chronic pain for longer than 6 months. Patient did previously have a lumbar epidural back in October that provided at least 30 to 50% improvement. His epidural was done at the L4-L5 level, due to the fact that he is having more the tops of his feet and soles I would like to change and try the L5-S1 level. Patient is agreeable to this. We will we will schedule the patient for an LESI L5-S1 under fluoroscopy. Patient has been instructed to contact the clinic with any concerns before the next appointment. Dr. Weiner has reviewed this note and agrees with this plan of care. This note was dictated using voice recognition software and make contain errors or omissions. All injections are used with Lidocaine, Bupivacaine and dexamethasone. Occasionally urine drug screen is needed to verify patient's compliance with our office pain contract. This is ordered based off specific treatments related to chronic pain with the potential to abuse certain medications.
== END 2025-04-15 23:59 | disposition home or self-care (01) ==
LOC: SC.PAIN 13:05
PROVIDERS: PCP Family Medicine; Visit Provider Nurse Practitioner Family
DX: M51.16 Intervertebral disc disorders with radiculopathy, lumbar region (principal); G62.9 Polyneuropathy, unspecified
CPT/HCPCS: 99212; G0463

== ENCOUNTER 2025-05-20 08:56 | Day surgery (SDC) | payer MEDICARE, OTHER, SELFPAY ==
[2025-05-20 09:00] VITALS: BP 163/73; PULSE 57; RESP 18; O2SAT 97; BMI 34.4
--- NOTE | 2025-05-20 09:30 | EXP.PAIN.PRO ---
Procedure Date: 05/20/25 Time: 09:20 Anesthesiologist:: Theodore Muñoz CRNA Complications:: None Pre-procedure Diagnosis:: Today's lumbar spine multilevels. Lumbar radiculopathy. Post-procedure Diagnosis:: Same. Indications for Procedure:: Patient is a very pleasant 75-year-old male who comes our clinic today for lumbar epidural steroid injection. Patient reports significant improvement terms of his low back pain as well as bilateral hip and leg radicular symptoms with previous injection. He describes low back pain as constant, dull, aching. He also reports bilateral leg radicular symptoms to the foot. Procedure Details:: Procedure: Lumbar epidural steroid injection under fluoroscopy Informed consent was obtained and the risks and benefits of the procedure were explained to the patient. The patient was taken to the procedure room and noninvasive monitors placed, including noninvasive blood pressure cuff and pulse oximeter. The back was viewed using C-arm Fluoroscopy and prepped using Chloraprep as a cleansing solution and the L5-S1 interspace was palpated. Skin and subcutaneous tissues were anesthetized using lidocaine 1.5% and a 25-gauge needle. After this, an 18-gauge Touhy epidural needle was placed into the L5-S1 interspace and advanced using fluoroscopic guidance and loss of resistance to air until the epidural space was encountered. After confirmation of needle placement in the epidural space, with dye, a solution containing normal saline, 3 mL and dexamethasone 10 mg were incrementally injected into the lumbar epidural space. The patient tolerated the procedure well with no complications. The patient was observed in the Pain Clinic and then discharged home neurologically intact. Plan and Disposition:: Patient was discharged without incident.
[2025-05-20 09:33] VITALS: BP 162/78; PULSE 56; RESP 18; O2SAT 95
[2025-05-20] MEDS: DEXAMETHASONE 10MG/ML 1ML VIAL 10 MG (09:33)
[2025-05-20 09:34] VITALS: BP 160/72; BP 162/78; PULSE 56; PULSE 59; RESP 18; O2SAT 95; O2SAT 98
== END 2025-05-20 09:34 | disposition home or self-care (01) ==
PROVIDERS: PCP Family Medicine; Visit Provider Nurse Anesthetist, Certified Registered
DX: M54.16 Radiculopathy, lumbar region (principal); E78.5 Hyperlipidemia, unspecified; Z95.5 Presence of coronary angioplasty implant and graft; I10 Essential (primary) hypertension; Z97.4 Presence of external hearing-aid; Z79.899 Other long term (current) drug therapy
CPT/HCPCS: 62323; J1100